=== PATIENT | male | born 1945 | race Caucasian/White ===

== ENCOUNTER 2018-10-18 18:40 | Inpatient (IN) | payer OTHER ==
[2018-10-18] MEDS ORDERED: ALBUTEROL SO4 2.5/IPRATROPIUM 0.5 INH SOL 3 ML VIAL.NEB. NEB ONE ×2 (18:53→19:06)
[2018-10-18] MEDS ORDERED: DEXAMETHASONE SOD PHOSPHATE 10 MG/1 ML VIAL ONE (18:53)
[2018-10-18] MEDS ORDERED: MAGNESIUM SULF 50% (8.12 MEQ/2 ML-1 GM VIAL) IVPB ONE (19:05)
[2018-10-18] MEDS ORDERED: MAGNESIUM 1GM/D5W - 2 GM/200 ML IVPB IVPB ONE (19:23)
--- NOTE | 2018-10-18 19:25 | PDOC ---
History of Present Illness - General Chief Complaint: Shortness of Breath Stated Complaint: DIFFICULTY BREATHING Time Seen by Provider: 10/18/18 18:54 - History of Present Illness Initial Comments: 10/18/18 20:28 72yo M hx COPD, HTN, abdominal hernia, and shingles c/o acute on chronic SOB and chest tightness. Pt c/o SOB, chest tightness, and nonproductive cough for over a year, worse today. It is constant, worse with exertion, better with rest , making him have difficulty even getting up and walking. He has been seen by multiple EDs and pulmonary specialists throughout [place] approximately once a week. Last visit to the ED was [facility] a week ago and he was given nebs and steroids then discharged from the ED. Pt states he was discharged without meds. Pt uses his albuterol inhaler daily but ran out of his Breo Ellipta inhaler. Pt states he just moved and left his nebulizer at his last home. No O2 at home. Pt states he was supposed to have a pulmonology test last week but didn 't go due to lack of money. Pt denies any hx of PNA or intubations. Denies F/C, N/V, D/C, CHRISTIAN, CP, abdominal pain, blood in stool or urine, dysuria, back pain, neck pain, dizziness, weakness, or numbness. Past History - Past Medical History Allergies/Adverse Reactions: Allergies Allergy/AdvReac Type Severity Reaction Status Date / Time No Known Allergies Allergy Verified 10/18/18 18:49 COPD: Yes - Surgical History Abdominal Surgery: Yes - Suicide/Smoking/Psychosocial Hx Smoking History: Former smoker Have you smoked in the past 12 months: No Information on smoking cessation initiated: No Hx Alcohol Use: No Drug/Substance Use Hx: No Review of Systems - Review of Systems Comments:: 10/18/18 19:34 Constitutional: Negative for chills, fever, fatigue. HENT: Negative for sore throat, rhinorrhea, congestion. Eyes: Negative for visual disturbance. Respiratory: Positive for shortness of breath, chest tightness, cough, and wheezing. Cardiovascular: Negative for chest pain, palpitations, and leg swelling. Gastrointestinal: Negative for abdominal pain, blood in stool, constipation, diarrhea, nausea, and vomiting. Genitourinary: Negative for dysuria, flank pain, and hematuria. Musculoskeletal: Negative for myalgias, back pain, and neck pain. Skin: Negative for rash. Neurological: Negative for light-headedness, dizziness, syncope, weakness, numbness and headaches. Psychiatric/Behavioral: Negative for behavioral problems and confusion. *Physical Exam - Vital Signs Last Vital Signs Temp Pulse Resp BP Pulse Ox 94 H 22 H 185/96 H 94 L 10/18/18 18:49 10/18/18 18:49 10/18/18 18:49 10/18/18 18:49 - Physical Exam Comments: 10/18/18 19:47 Gen: Alert, leaning forward, mild respiratory distress, speaking in 4-word sentences, anxious-appearing. HEENT: PERRL, EOMI, MMM, NCAT. No conjunctival pallor. Sclera are non-icteric. CV: Regular rate and rhythm. No murmurs, rubs, or gallops. PULM: Moderate respiratory distress, good air movement, b/l diffuse wheezing, no crackles. ABD: soft, NT/ND, no rebound tenderness or guarding, no CVA tenderness. BACK: No TTP of c/t/l-spine. No step-offs or deformities. MSK: No bony deformities. 2+ pulses in all extremities. NEURO: AAOx3. PERRL. No gross CN deficits. Strength and sensation grossly intact throughout. EXTREMITIES: No cyanosis. No clubbing. No edema. No calf tenderness. PSYCH: Normal mood and thought pattern. SKIN: Warm and dry. Normal capillary refill. No rashes. No jaundice. Heart Score/ECG Review - ECG Impressions Comment:: 10/18/18 20:45 NSR, 90bpm, no AMRITA/TWI ED Treatment Course - LABORATORY CBC & Chemistry Diagram: 10/18/18 19:20 10/18/18 19:20 Medical Decision Making - Medical Decision Making 10/18/18 19:31 72yo M hx COPD, HTN, abdominal hernia, and shingles presents with acute on chronic SOB, chest tightness, and nonproductive cough for >1yr, worse today. Multiple visits to EDs, using inhaler but ran out of Breo Ellipta and nebs. No hx of PNA or intubations. Mild respiratory distress with diffuse wheezing, BP/ HR stable, afebrile. SOB most likely COPD exacerbation due to wheezing and hx. Decadron and duonebs given by EMS. Continue decadron and albuterol and add Mg. Hold off on bipap for now. Get CXR and basic labs including VBG. Also consider and assess for PNA due to cough. Less likely ddx includes ACS/DE (low HEART score pre-EKG/trop; evaluate with EKG and trop x1), CHF (get BNP), PE (low Wells score-no further testing indicated at this time), PTX (b/l BS present, obtain CXR), and metabolic derangements (check labs). -Labs: CBC, CMP, VBG, Lact, Trop, BNP, Mg, BCx -EKG -CXR -Meds: Albuterol, Mg, Decadron -Dispo: most likely admit pending workup 10/18/18 20:04 Bipap placed. Pt still in mild respiratory distress with diffuse wheezing, speaking in 4-5 word sentences. VBG: pH 7.38, pCO2 49.4, pO2 29.5, HCO3 28.2, O2 sat 48.8, BE 2.6 10/18/18 20:27 No concerning findings on CBC. Lact 0.7. 10/18/18 20:41 No concerning findings on CMP, Trop, BNP (59.8), Mg (2.3). CXR: per my read, mild pulmonary congestion, no signs of PNA. 10/18/18 20:43 Pt feels like breathing less labored. Tolerating bipap. Still speaking in 4-5 word sentences and diffuse wheezing, but appears in less distress. 10/18/18 20:50 In-line albuterol nebs ordered. Microblog for admission. 10/18/18 21:25 Spoke with admitting. Admit to Dr. Abdalla. *DC/Admit/Observation/Transfer Diagnosis at time of Disposition: COPD exacerbation - Discharge Dispostion Condition at time of disposition: Fair Decision to Admit order: Yes - Referrals - Patient Instructions - Post Discharge Activity
[2018-10-18] MEDS: ALBUTEROL SO4 2.5/IPRATROPIUM 0.5 INH SOL 3 ML VIAL.NEB. NEB SCH (19:37)
--- NOTE | 2018-10-18 19:40 | PDOC ---
Documentation entered by Richa Mejia SCRIBE, acting as scribe for Leonarda Grey MD. Leonarda Grey MD: This documentation has been prepared by the Roberto bernard Collisia, SCRIBE, under my direction and personally reviewed by me in its entirety. I confirm that the documentation accurately reflects all work, treatment, procedures, and medical decision making performed by me. Attending Attestation - Resident Resident Name: Leny Peters - ED Attending Attestation I have performed the following: I have examined & evaluated the patient, The case was reviewed & discussed with the resident, I agree w/resident's findings & plan, Exceptions are as noted - HPI HPI: 10/18/18 19:21 The patient is a 72 year old male with a significant past medical history of poorly controlled COPD, glaucoma who presents to the emergency department via EMS with increased shortness of breath since last night. He states that he began to have some labored breathing while at home last night. The patient reports that he has been hospitalized for similar symptoms multiple times in the past including at [facility], [place], and [facility]. He reports associated recent productive cough for 1 week. The patient states that he usually takes albuterol PRN and daily Breo(200 mcg/25mcg) but states that he ran out of his Breo more that 1 week ago. The patient denies and fever, chills, nausea, vomiting, diarrhea, constipation or urinary symptoms. He denies any headache, focal weakness/numbness or dizziness. The patient denies any other symptoms or complaints. - Physicial Exam PE: 10/18/18 19:23 GENERAL: (+)speaking in 3-4 word sentences. Awake, alert, and fully oriented, in mild resp distress EYES: EOMI, sclera anicteric, conjunctiva clear ENT: Oropharynx clear without exudates. Moist mucosa NECK: Normal ROM, supple, no lymphadenopathy, JVD, or masses LUNGS: (+)diffuse wheezing with moderate air movement. Breath sounds equal. No crackles HEART: Regular rate and rhythm, normal S1 and S2, no murmurs, rubs or gallops ABDOMEN: Soft, nontender, normoactive bowel sounds. No guarding, no rebound. No masses EXTREMITIES: Normal range of motion, no edema. No clubbing or cyanosis. No cords, erythema, or tenderness NEUROLOGICAL: Normal speech, cranial nerves intact, equal strength and sensation b/l SKIN: Warm, Dry, normal turgor, no rashes or lesions noted. - Medical Decision Making 10/18/18 19:34 72yo M hx COPD presents to the ED with SOB Exam with diffuse wheezing, moderate air movement Pt s/p decadron in the field, duonebs Will continue duonebs, add magnesium Pt placed on bipap due to some WOB and mild distress 10/18/18 21:34 Pt much more comfortable on bipap CXR clear Blood gas with no acidosis or CO2 retention Labs otherwise including trop and BNP wnl Rpt vitals stable Case discussed with admitting hospitalist, pt accepted for admission under Dr. Lance Case discussed in detail with admitting physician including history, physical exam and ancillary studies. Admitting physician has assumed care for the patient, will follow all pending diagnostics and will complete the evaluation and treatment. Heart Score/ECG Review #1 10/18/18 19:33 Twelve-lead EKG was performed and reviewed by me. Normal sinus rhythm, rate 90. Normal axis and intervals. No ST elevations or T-wave inversions.
[2018-10-18 19:56] LABS: BASO % 1.1 % (0-2.0); EOS % 11.3 % (0-4.5); HEMATOCRIT 40.9 % (35.4-49); HEMOGLOBIN 13.4 GM/dL (11.7-16.9); LYMPH % 15.6 % (8-40); MCH 30.7 pg (25.7-33.7); MCHC 32.8 g/dl (32.0-35.9); MEAN CELL VOLUME 93.7 fl (80-96); MEAN PLT VOLUME 8.9 fl (7.5-11.1); MONO % 8.5 % (3.8-10.2); NEUT % 63.5 % (42.8-82.8); PLATELET COUNT 224 K/MM3 (134-434); RBC 4.37 M/mm3 (4.00-5.60); WHITE BLOOD COUNT 6.2 K/mm3 (4.0-10.0)
[2018-10-18 19:57] LABS: VENOUS PC02 49.4 mmHg (41-51); VENOUS PH 7.38 (7.31-7.41)
[2018-10-18 19:58] LABS: VENOUS PO2 29.5 mmHg (30-40)
[2018-10-18 20:30] LABS: ALBUMIN 3.5 g/dl (3.4-5.0); ALK PHOS 69 U/L (45-117); ANION GAP 5 MMOL/L (8-16); BILIRUBIN,TOTAL 0.5 mg/dL (0.2-1); CALCIUM 8.5 mg/dL (8.5-10.1); CHLORIDE 108 mmol/L (98-107); CO2 30 mmol/L (21-32); CREATININE 0.9 mg/dL (0.55-1.3); GLUCOSE,RANDOM 98 mg/dL (74-106); MAGNESIUM 2.3 mg/dL (1.8-2.4); N-TERMINAL BNP 59.8 pg/ml (5-125); POTASSIUM 3.9 mmol/L (3.5-5.1); SGOT/AST 25 U/L (15-37); SGPT/ALT 23 U/L (13-61); SODIUM 143 mmol/L (136-145); TOT PROT 6.2 g/dl (6.4-8.2)
[2018-10-18] MEDS ORDERED: ALBUTEROL SO4 0.083% IH SOL 2.5 MG/3 ML VIAL.NEB. NEB PRN ×2 (20:48→22:25)
[2018-10-18] MEDS ORDERED: ACETAMINOPHEN 325 MG TABLET (FP) PO PRN (22:25)
--- NOTE | 2018-10-18 22:49 | PN ---
Teaching Attending Note Name of Resident: Leslie Amos ATTENDING PHYSICIAN STATEMENT I saw and evaluated the patient. Chart, data, imaging reviewed. I reviewed the resident's note and discussed the case with the resident. I agree with the resident's findings and plan as documented. SUBJECTIVE: 72yo M hx COPD, HTN, abdominal hernia, biba, c/o shortness of breath and cough w / yellowish sputum production for last several days, seen at [facility] ER and discharged with doxycycline. Found to be hypoxemic in ER. On way to [facility] received systemic steroids, placed on Bipap with improvement in symptoms. Cannot fully speak in full sentences. Denied smoking cigarettes ever but admitted to second hand smoke exposure. OBJECTIVE: Last Vital Signs Temp Pulse Resp BP Pulse Ox 98.0 F 90 24 H 166/89 96 10/18/18 21:29 10/18/18 21:52 10/18/18 21:52 10/18/18 21:52 10/18/18 21:52 General- respiratory distress, cannot speak in full sentences Heent- at, nc, chest- diffuse expiraotory wheezing, coarse breath sounds appreciated abdomen- soft, nt, bs+, large vertical scar, reducible abd hernia ext- no pedal edema appreciated, no clubbing, or cyanosis Abnormal Lab Results 10/18/18 10/18/18 10/18/18 19:20 19:20 19:20 Eosinophils % 11.3 H POC VBG pO2 29.5 L VBG O2 Sat (Jeffy) 48.8 L VBG Base Excess 2.6 H Chloride 108 H Anion Gap 5 L Total Protein 6.2 L Imaging reviewed ekg suggestive of possible lvh cxr showed possible pulm vascular congestion ASSESSMENT AND PLAN: #72yo man with acute hypoxic resp failure secondary to what appears to be reactive airway disease- COPD? although never smoked. Never had PFTs. Normal BNP , do not suspect CHF or PE. -admit to med/surg -methylprednisone -duonebs q4hrs -azithromycin daily -pulmonary evaluation -maintain on bipap -ABG on room air if allows -transthoracic echo -respiratory watch -repeat troponin (1st was neg) #Severe htn -salt restriction -amlopdine, lisinopril #DVT ppx- heparin sc
[2018-10-18] MEDS ORDERED: AZITHROMYCIN IVPB 500 MG/250 ML BAG IVPB ONE (23:00)
[2018-10-18] MEDS: methylPREDNISolone NA SUCC 40 MG/1 ML VIAL IVPUSH SCH (23:27)
--- NOTE | 2018-10-18 23:28 | HP ---
CHIEF COMPLAINT: acute shortness of breath and chest tightness PCP: unknown HISTORY OF PRESENT ILLNESS: 72 yo M with PMH of COPD, HTN, glaucoma, abdominal hernia, shingles BIBEMS for acute shortness of breath and chest tightness. pt states this SOB is an ongoing issue for over a month with many recent hospital visits regarding this issue. Pt states these symptoms are worse on exertion. Pt also states he has been having a productive cough with yellow sputum. Pt states he still has productive cough but it has been improving this past week. Most recent hospital visit was 1 week ago ( [facility]) where he was discharged from the ED on doxycycline and breo ellipta. Today pt experienced worsening SOB. Decadron and duonebs given by EMS. pt BP in the ED 185/96. Pt denies smoking history but states he has been exposed to second hand smoke ER course was notable for: (1) pt given Decadron 10mg and duonebs (2) pt started on BiPAP Recent Travel: denies recent travel PAST MEDICAL HISTORY: HTN, abdominal hernia, shingles, glaucoma PAST SURGICAL HISTORY: Appendectomy - early Social History: Smoking:denies Alcohol:denies Drugs: denies Family History: Allergies No Known Allergies Allergy (Verified 10/18/18 18:49) HOME MEDICATIONS: Home Medications Medication Instructions Recorded Doxycycline Hyclate 100 mg PO BID 10/18/18 Fluticasone/Vilanterol [Breo 1 each IH PRN 10/18/18 Ellipta 200-25 Mcg INH] REVIEW OF SYSTEMS CONSTITUTIONAL: Absent: fever, chills, diaphoresis, generalized weakness, malaise, loss of appetite, weight change CARDIOVASCULAR: Present: chest discomfort Absent: syncope, palpitations, irregular heart rate, lightheadedness, peripheral edema RESPIRATORY: Present: cough, shortness of breath, dyspnea on exertion, wheezes Absent: orthopnea, stridor, hemoptysis GASTROINTESTINAL: Absent: abdominal pain, abdominal distension, nausea, vomiting, diarrhea, constipation, melena, hematochezia PHYSICAL EXAMINATION Vital Signs - 24 hr 10/18/18 10/18/18 10/18/18 18:49 19:20 20:03 Temperature Pulse Rate 94 H Pulse Rate [ Left Radial] Pulse Rate [ Right] Respiratory 22 H Rate Blood Pressure 185/96 H Blood Pressure [Left Arm] Blood Pressure [Right Arm] O2 Sat by Pulse 94 L 94 L 99 Oximetry (%) 10/18/18 10/18/18 21:29 21:52 Temperature 98.0 F Pulse Rate Pulse Rate [ 88 Left Radial] Pulse Rate [ 90 Right] Respiratory 24 H 24 H Rate Blood Pressure Blood Pressure 154/77 [Left Arm] Blood Pressure 166/89 [Right Arm] O2 Sat by Pulse 96 96 Oximetry (%) Laboratory Last Values WBC 6.2 K/mm3 (4.0-10.0) 10/18/18 19:20 RBC 4.37 M/mm3 (4.00-5.60) 10/18/18 19:20 Hgb 13.4 GM/dL (11.7-16.9) 10/18/18 19:20 Hct 40.9 % (35.4-49) 10/18/18 19:20 MCV 93.7 fl (80-96) 10/18/18 19:20 MCH 30.7 pg (25.7-33.7) 10/18/18 19:20 MCHC 32.8 g/dl (32.0-35.9) 10/18/18 19:20 RDW 14.0 % (11.9-15.9) 10/18/18 19:20 Plt Count 224 K/MM3 (134-434) 10/18/18 19:20 MPV 8.9 fl (7.5-11.1) 10/18/18 19:20 Absolute Neuts (auto) 3.9 K/mm3 (1.5-8.0) 10/18/18 19:20 Neutrophils % 63.5 % (42.8-82.8) 10/18/18 19:20 Lymphocytes % 15.6 % (8-40) 10/18/18 19:20 Monocytes % 8.5 % (3.8-10.2) 10/18/18 19:20 Eosinophils % 11.3 % (0-4.5) H 10/18/18 19:20 Basophils % 1.1 % (0-2.0) 10/18/18 19:20 Nucleated RBC % 0 % (0-0) 10/18/18 19:20 VBG pH 7.38 (7.31-7.41) 10/18/18 19:20 POC VBG pCO2 49.4 mmHg (41-51) 10/18/18 19:20 POC VBG pO2 29.5 mmHg (30-40) L 10/18/18 19:20 VBG HCO3 28.2 mmol/L (23-29) 10/18/18 19:20 VBG O2 Sat (Jeffy) 48.8 % (70-80) L 10/18/18 19:20 VBG Base Excess 2.6 meq/l (-2-2) H 10/18/18 19:20 Sodium 143 mmol/L (136-145) 10/18/18 19:20 Potassium 3.9 mmol/L (3.5-5.1) 10/18/18 19:20 Chloride 108 mmol/L (98-107) H 10/18/18 19:20 Carbon Dioxide 30 mmol/L (21-32) 10/18/18 19:20 Anion Gap 5 MMOL/L (8-16) L 10/18/18 19:20 BUN 17.0 mg/dL (7-18) 10/18/18 19:20 Creatinine 0.9 mg/dL (0.55-1.3) 10/18/18 19:20 Est GFR (CKD-EPI)AfAm 97.17 10/18/18 19:20 Est GFR (CKD-EPI)NonAf 83.84 10/18/18 19:20 Random Glucose 98 mg/dL (74-106) 10/18/18 19:20 Lactic Acid 0.7 mmol/L (0.4-2.0) 10/18/18 19:20 Calcium 8.5 mg/dL (8.5-10.1) 10/18/18 19:20 Magnesium 2.3 mg/dL (1.8-2.4) 10/18/18 19:20 Total Bilirubin 0.5 mg/dL (0.2-1) 10/18/18 19:20 AST 25 U/L (15-37) 10/18/18 19:20 ALT 23 U/L (13-61) 10/18/18 19:20 Alkaline Phosphatase 69 U/L (45-117) 10/18/18 19:20 Troponin I < 0.02 ng/ml (0.00-0.05) 10/18/18 19:20 B-Natriuretic Peptide 59.8 pg/ml (5-125) 10/18/18 19:20 Total Protein 6.2 g/dl (6.4-8.2) L 10/18/18 19:20 Albumin 3.5 g/dl (3.4-5.0) 10/18/18 19:20 GENERAL: Awake, alert, and fully oriented, in no acute distress. HEAD: Normal with no signs of trauma. EYES: extraocular movements intact, sclera anicteric LUNGS: Course breath sounds R> L . B/L wheezes. On BIPAP HEART: Regular rate and rhythm, normal S1 and S2 without murmur, rub or gallop. ABDOMEN: nontender, not distended, large abdominal hernia UPPER EXTREMITIES: 2+ pulses, warm, well-perfused. No cyanosis. No clubbing. No peripheral edema. LOWER EXTREMITIES: 2+ pulses, warm, well-perfused. No calf tenderness. No peripheral edema. NEUROLOGICAL: Cranial nerves II-XII intact. Normal speech. PSYCHIATRIC: Cooperative. Good eye contact. Appropriate mood and affect. SKIN: Warm, dry, normal turgor, no rashes or lesions noted, normal capillary refill. Active Medications Acetaminophen (Tylenol -) 650 mg PO Q4H PRN PRN Reason: PAIN OR FEVER Albuterol Sulfate (Ventolin 0.083% Nebulizer Soln -) 1 amp NEB Q4H PRN PRN Reason: SHORT OF BREATH/WHEEZING Albuterol/Ipratropium (Duoneb -) 1 amp NEB RQID NANCY Heparin Sodium (Porcine) (Heparin -) 5,000 unit SQ TID [facility] Azithromycin (Zithromax 500mg Ivpb (Pre-Docked)) 500 mg in 250 mls @ 250 mls/ hr IVPB ONCE ONE Stop: 10/18/18 23:59 Azithromycin 250 mg/ Dextrose 250 mls @ 250 mls/hr IVPB DAILY [facility] Methylprednisolone Sodium Succinate (Solu-Medrol -) 40 mg IVPUSH Q8H-IV NANCY Pantoprazole Sodium (Protonix -) 40 mg PO DAILY [facility] ASSESSMENT/PLAN: 72 yo M w/ PMH COPD, HTN, abdominal hernia, shingles, admitted with acute shortness of breath and chest tightness. Acute hypoxic respiratory failure -2/2 acute COPD exacerbation vs cardiac pathology -pt on BIPAP -awaiting ABG on room air -CXRAY: mild pulm vasc congestion -Azithromycin: 500 mg initial dose, 250 daily -methylprednisone 40 q8 -c/w DuoNebs q4 and albuterol prn -Dr. Mohr consulted -recommending outpt follow up with PFTs -pt afebrile with no leukocytosis , unlikely URI -ECHO to r/o cardiac pathology -BNP 59.8, EKG in NSR, possible LVH -PE unlikely, low Wells criteria HTN -pt BP 166/89 -Lisinopril 10mg -Amlodipine 10mg -low salt diet DVT ppx: Hep SQ 10/18/18 20:43 Visit type - Emergency Visit Emergency Visit: No - New Patient This patient is new to me today: No - Critical Care Critical Care patient: No
[2018-10-18 23:55] VITALS: BMI 24.1
[2018-10-19 00:29] LABS: ARTERIAL BLD GAS O2 SATURATION 90.4 % (95-98); ARTERIAL BLOOD GAS BASE EXCESS 2.4 meq/l (-2-2); ARTERIAL BLOOD GAS PCO2 39.3 mmHg (35-45); ARTERIAL BLOOD GAS PO2 58.7 mmHg (80-105); ARTERIAL BLOOD GAS pH 7.44 (7.35-7.45)
[2018-10-19 01:04] LABS: ALLENS TEST POSITIVE
[2018-10-19] MEDS: methylPREDNISolone NA SUCC 40 MG/1 ML VIAL IVPUSH SCH ×3 (01:47→18:02)
[2018-10-19] MEDS: HEPARIN NA (PORCINE) 5,000 UNITS/ML 1ML VIAL SQ SCH ×3 (05:59→21:22)
[2018-10-19 06:43] LABS: HEMATOCRIT 38.9 % (35.4-49); HEMOGLOBIN 13.1 GM/dL (11.7-16.9); MCH 31.2 pg (25.7-33.7); MCHC 33.7 g/dl (32.0-35.9); MEAN CELL VOLUME 92.6 fl (80-96); MEAN PLT VOLUME 8.8 fl (7.5-11.1); PLATELET COUNT 227 K/MM3 (134-434); RDW 13.8 % (11.9-15.9); WHITE BLOOD COUNT 6.5 K/mm3 (4.0-10.0)
[2018-10-19 07:09] LABS: BLOOD UREA NITROGEN 20.4 mg/dL (7-18); CALCIUM 8.3 mg/dL (8.5-10.1); MAGNESIUM 2.5 mg/dL (1.8-2.4); PHOSPHOROUS 2.6 mg/dL (2.5-4.9); POTASSIUM 4.3 mmol/L (3.5-5.1)
[2018-10-19] MEDS: ALBUTEROL SO4 2.5/IPRATROPIUM 0.5 INH SOL 3 ML VIAL.NEB. NEB SCH ×3 (08:47→21:34)
--- NOTE | 2018-10-19 09:39 | CON.PULM ---
Consult Consult Specialty:: PULMONARY Referred by:: ZAYDA Reason for Consultation:: ASTHMA - History of Present Illness Chief Complaint: SOB/COUGH/WHEEZE History of Present Illness: 72 RECENTLY HOMELESS NONSMOKER HTN/B. JEZ ON ADVAIR AND ALBUTEROL WAS IN A [facility] IN [place] UNTIL HE WAS GIVEN A [place] RUN APARTMENT. HE WAS SLEEPING ON THE FLOOR IN THE APARTMENT ( NO FURNITURE WAS PROVIDED) HE BEGAN TO DEVELOP COUGH/NASAL CONGESTION AND WHEEZE. HE HAD RUN OUT OF HIS ADVAIR AND ALBUTEROL. HE ALSO STATES HE DID NOT HAVE ANY FURTHER ANTI-HTN MEDS. hE DENIES ETOH/DRUG ABUSE OR PREVIOUS INCARCERATION. hE IS A POOR HISTORIAN. hE HAD AN APPENDECTOMY IN THE PAST WITH INCISIONAL HERNIA NOTED. - History Source History Provided By: Patient, Medical Record Limitations to Obtaining History: Poor Historian - Past Medical History [employer]: No: Alzheimer's Cardio/Vascular: Yes: HTN. No: AFIB Pulmonary: Yes: Asthma, COPD. No: Previously Intubated Gastrointestinal: No: Ascites Hepatobiliary: No: Cirrhosis Renal/: No: Renal Failure Heme/Onc: No: Anemia Psych: No: Addictions ENT: Yes: Sinusitis, Other (GLAUCOMA) Endocrine: No: Diabetes Mellitus - Past Surgical History Past Surgical History: Yes: Appendectomy - Alcohol/Substance Use Hx Alcohol Use: No - Smoking History Smoking history: Never smoked Have you smoked in the past 12 months: No Aproximately how many cigarettes per day: 0 - Social History Usual Living Arrangement: Other ([facility]) ADL: Support Services Place of : [facility] History of Recent Travel: No Home Medications - Allergies Allergies/Adverse Reactions: Allergies Allergy/AdvReac Type Severity Reaction Status Date / Time No Known Allergies Allergy Verified 10/18/18 18:49 - Home Medications Home Medications: Ambulatory Orders Doxycycline Hyclate 100 mg PO BID 10/18/18 Fluticasone/Vilanterol [Breo Ellipta 200-25 Mcg INH] 1 each IH PRN 10/18/18 Latanoprost 0.005% Eye Drops [Xalatan 0.005% Eye Drops -] 1 drop OU BID Timolol Maleate 1 drop OU BID 10/18/18 Breo Ellipta 100-25 Mcg INH 1 puff DAILY 10/19/18 Proair Hfa 1 puff PRN 10/19/18 Family Disease History - Family Disease History Family History: Unremarkable Review of Systems - Review of Systems Constitutional: denies: Fever Eyes: reports: Blurred Vision HENT: denies: Difficult Swallowing Neck: denies: Decreased ROM Cardiovascular: denies: Chest Pain Respiratory: reports: Cough, SOB on Exertion, Wheezing. denies: Hemoptysis, Orthopnea Gastrointestinal: denies: Abdominal Pain Genitourinary: denies: Burning Physical Exam Vital Sings: Vital Signs Temperature 97.8 F 10/19/18 06:00 Pulse Rate 82 10/19/18 06:00 Respiratory Rate 20 10/19/18 06:00 Blood Pressure 135/82 10/19/18 06:00 O2 Sat by Pulse Oximetry (%) 95 10/19/18 08:46 Constitutional: Yes: Calm Eyes: Yes: EOM Intact HENT: Yes: Normocephalic Neck: Yes: Trachea Midline Cardiovascular: Yes: Regular Rate and Rhythm Respiratory: Yes: Rhonchi (MILD SCATTERED) Gastrointestinal: Yes: Other (INCISIONAL HERNIA ) Renal/: Yes: WNL Breast(s): Yes: WNL Musculoskeletal: Yes: WNL Extremities: Yes: WNL Edema: No Neurological: Yes: Alert Psychiatric: Yes: Alert Labs: CBC, BMP 10/19/18 06:05 10/19/18 06:05 ABG Results ABG pH 7.44 (7.35-7.45) 10/19/18 00:10 ABG pCO2 at Pt Temp 39.3 mmHg (35-45) 10/19/18 00:10 ABG pO2 at Pt Temp 58.7 mmHg (80-105) L 10/19/18 00:10 ABG HCO3 26.1 mmol/L (22-27) 10/19/18 00:10 ABG O2 Sat (Measured) 90.4 % (95-98) L 10/19/18 00:10 ABG O2 Content 16.7 % vol (15-22) 10/19/18 00:10 ABG Base Excess 2.4 meq/l (-2-2) H 10/19/18 00:10 REST REVIEWED Imaging - Results Chest X-ray: Report Reviewed, Image Reviewed EKG: Report Reviewed Problem List - Problems (1) COPD exacerbation Code(s): J44.1 - CHRONIC OBSTRUCTIVE PULMONARY DISEASE W (ACUTE) EXACERBATION (2) HTN (hypertension) Code(s): I10 - ESSENTIAL (PRIMARY) HYPERTENSION (3) Glaucoma Code(s): H40.9 - UNSPECIFIED GLAUCOMA (4) Homeless Code(s): Z59.0 - HOMELESSNESS (5) Incisional hernia Code(s): K43.2 - INCISIONAL HERNIA WITHOUT OBSTRUCTION OR GANGRENE Assessment/Plan PREVIOUSLY HOMELESS MALE NONSMOKER WITH H/O COPD/B. ASTHMA PRESENTS WITH A/E COPD REQUIRING NIPPV PATIENT RAN OUT OF MEDS/ ADVAIR, ALBUTEROL AND STATES HE DEVELOPED A PRODUCTIVE COUGH WHICH WORSENED OVER PAST TWO WEEKS. H/O HTN S/P APPENDECTOMY WITH INCISIONAL REDUCIBLE HERNIAS O2 SUPPLEMENTATION REQUIRED TO KEEP O2 SAT GREATER THAN 90% NEED TO CHEECK SPO2 PRE/POST AMB ON R/A TO DETERMINE NEED FOR HOME O2 [facility]/LABA/ICS/LAMA WOULD TAPER SYSTEMIC STEROIDS ANTIBIOTICS PER PRIMARY TEAM PPD/DVT PROPHYLAXSIS WILL FOLLOW Didier BLANDON MD
[2018-10-19] MEDS: LISINOPRIL 10 MG TABLET (FP) PO SCH (09:56)
[2018-10-19] MEDS: PANTOPRAZOLE 40 MG TABLET (FP) PO SCH (09:56)
[2018-10-19] MEDS: amLODIPine BESYLATE 10 MG TABLET (FP) PO SCH (09:56)
[2018-10-19] MEDS ORDERED: amLODIPine BESYLATE 10 MG TABLET (FP) PO SCH (10:00)
[2018-10-19] MEDS ORDERED: LISINOPRIL 10 MG TABLET (FP) PO SCH (10:00)
[2018-10-19] MEDS: AZITHROMYCIN IVPB 250 MG in DEXTROSE 5%-WATER - 250 ML IVPB SCH (10:07)
--- NOTE | 2018-10-19 11:55 | PN ---
Teaching Attending Note ATTENDING PHYSICIAN STATEMENT I saw and evaluated the patient. I reviewed the resident's note and discussed the case with the resident. I agree with the resident's findings and plan as documented. SUBJECTIVE: OBJECTIVE: ASSESSMENT AND PLAN:
--- NOTE | 2018-10-19 12:12 | PN ---
Progress Note (short form) - Note Progress Note: SUBJECTIVE: Dyspnea/cough improving. No fever/chills. OBJECTIVE: Afebrile, Hemodynamically Stable. Last Vital Signs Temp Pulse Resp BP Pulse Ox 98.4 F 89 20 137/60 95 10/19/18 09:55 10/19/18 09:55 10/19/18 09:55 10/19/18 09:55 10/19/18 08:46 HEENT - Atraumatic, Normocephalic. Heart - S1, S2, RRR Lungs - occassional wheeze. Abdomen - Soft, non-tender. Laparotomy scar. Reducible hernia. Bowel Sounds normal. Extremities - no edema, no calf tenderness. Laboratory Results - last 24 hr 10/18/18 10/18/18 10/18/18 19:20 19:20 19:20 WBC 6.2 RBC 4.37 Hgb 13.4 Hct 40.9 MCV 93.7 MCH 30.7 MCHC 32.8 RDW 14.0 Plt Count 224 MPV 8.9 Absolute Neuts (auto) 3.9 Neutrophils % 63.5 Lymphocytes % 15.6 Monocytes % 8.5 Eosinophils % 11.3 H Basophils % 1.1 Nucleated RBC % 0 Anticoagulation Therapy Puncture Site ABG pH ABG pCO2 at Pt Temp ABG pO2 at Pt Temp ABG HCO3 ABG O2 Sat (Measured) ABG O2 Content ABG Base Excess Hector Test VBG pH 7.38 POC VBG pCO2 49.4 POC VBG pO2 29.5 L VBG HCO3 28.2 VBG O2 Sat (Jeffy) 48.8 L VBG Base Excess 2.6 H O2 Delivery Device Oxygen Flow Rate Vent Mode Vent Rate Mechanical Rate Pressure Support Vent Sodium 143 Potassium 3.9 Chloride 108 H Carbon Dioxide 30 Anion Gap 5 L BUN 17.0 Creatinine 0.9 Est GFR (CKD-EPI)AfAm 97.17 Est GFR (CKD-EPI)NonAf 83.84 Random Glucose 98 Lactic Acid Calcium 8.5 Phosphorus Magnesium 2.3 Total Bilirubin 0.5 AST 25 ALT 23 Alkaline Phosphatase 69 Troponin I < 0.02 B-Natriuretic Peptide 59.8 Total Protein 6.2 L Albumin 3.5 10/18/18 10/19/18 10/19/18 19:20 00:10 06:05 WBC 6.5 RBC 4.20 Hgb 13.1 Hct 38.9 MCV 92.6 MCH 31.2 MCHC 33.7 RDW 13.8 Plt Count 227 MPV 8.8 Absolute Neuts (auto) Neutrophils % Lymphocytes % Monocytes % Eosinophils % Basophils % Nucleated RBC % Anticoagulation Therapy No Result Required. Puncture Site Right radial ABG pH 7.44 ABG pCO2 at Pt Temp 39.3 ABG pO2 at Pt Temp 58.7 L ABG HCO3 26.1 ABG O2 Sat (Measured) 90.4 L ABG O2 Content 16.7 ABG Base Excess 2.4 H Hector Test Positive VBG pH POC VBG pCO2 POC VBG pO2 VBG HCO3 VBG O2 Sat (Jeffy) VBG Base Excess O2 Delivery Device Nasal cannula Oxygen Flow Rate 3l Vent Mode No Result Required. Vent Rate No Result Required. Mechanical Rate No Result Required. Pressure Support Vent No Result Required. Sodium Potassium Chloride Carbon Dioxide Anion Gap BUN Creatinine Est GFR (CKD-EPI)AfAm Est GFR (CKD-EPI)NonAf Random Glucose Lactic Acid 0.7 Calcium Phosphorus Magnesium Total Bilirubin AST ALT Alkaline Phosphatase Troponin I B-Natriuretic Peptide Total Protein Albumin 10/19/18 06:05 WBC RBC Hgb Hct MCV MCH MCHC RDW Plt Count MPV Absolute Neuts (auto) Neutrophils % Lymphocytes % Monocytes % Eosinophils % Basophils % Nucleated RBC % Anticoagulation Therapy Puncture Site ABG pH ABG pCO2 at Pt Temp ABG pO2 at Pt Temp ABG HCO3 ABG O2 Sat (Measured) ABG O2 Content ABG Base Excess Hector Test VBG pH POC VBG pCO2 POC VBG pO2 VBG HCO3 VBG O2 Sat (Jeffy) VBG Base Excess O2 Delivery Device Oxygen Flow Rate Vent Mode Vent Rate Mechanical Rate Pressure Support Vent Sodium 139 Potassium 4.3 Chloride 107 Carbon Dioxide 26 Anion Gap 6 L BUN 20.4 H Creatinine 1.0 Est GFR (CKD-EPI)AfAm 85.55 Est GFR (CKD-EPI)NonAf 73.82 Random Glucose 124 H Lactic Acid Calcium 8.3 L Phosphorus 2.6 Magnesium 2.5 H Total Bilirubin AST ALT Alkaline Phosphatase Troponin I B-Natriuretic Peptide Total Protein Albumin Current Medications Generic Name Dose Route Start Last Admin Trade Name Freq PRN Reason Stop Dose Admin Acetaminophen 650 mg 10/18/18 22:25 Tylenol - PO Q4H PRN PAIN OR FEVER Albuterol Sulfate 1 amp 10/18/18 22:25 Ventolin 0.083% Nebulizer Soln - NEB Q4H PRN SHORT OF BREATH/WHEEZING Albuterol/Ipratropium 1 amp 10/19/18 08:00 10/19/18 08:47 Duoneb - NEB 1 amp RQID NANCY Administration Amlodipine Besylate 10 mg 10/18/18 23:35 10/19/18 09:56 Norvasc - PO 10 mg DAILY NANCY Administration Heparin Sodium (Porcine) 5,000 unit 10/19/18 06:00 10/19/18 05:59 Heparin - SQ 5,000 unit TID NANCY Administration Azithromycin 250 mg/ Dextrose 250 mls @ 250 mls/hr 10/19/18 10:00 10/19/18 10 :07 IVPB 250 mls/hr DAILY NANCY Administration Lisinopril 10 mg 10/18/18 23:34 10/19/18 09:56 Prinivil PO 10 mg DAILY NNACY Administration Methylprednisolone Sodium Succinate 40 mg 10/18/18 22:45 10/19/18 01:47 Solu-Medrol - IVPUSH Not Given Q8H-IV NANCY Pantoprazole Sodium 40 mg 10/19/18 10:00 10/19/18 09:56 Protonix - PO 40 mg DAILY NANCY Administration Home Medications Medication Instructions Recorded Doxycycline Hyclate 100 mg PO BID 10/18/18 Fluticasone/Vilanterol [Breo 1 each IH PRN 10/18/18 Ellipta 200-25 Mcg INH] Latanoprost 0.005% Eye Drops 1 drop OU BID 10/18/18 [Xalatan 0.005% Eye Drops -] Timolol Maleate 1 drop OU BID 10/18/18 Breo Ellipta 100-25 Mcg INH 1 puff DAILY 10/19/18 Proair Hfa 1 puff PRN 10/19/18 ASSESSMENT/PLAN: 72 year old male with history of COPD, HTN, s/p appendectomy with reducible incisional abdominal hernia, presents with SOB/productive cough, found to be hypoxic in ED, requiring BiPAP. 1. Acute Hypoxic Respiratory Failure secondary to Acute Exacerbation COPD Transitioned from BiPAP to O2. CXR - no acute infiltrate. Continue Bronchodilator Nebs, Solumedrol, Azithromycin Normally on Breo-Ellipta, ProAir. 2. HTN - Continue Lisinopril, Norvasc. DVT Px - Heparin SQ. Visit type - Emergency Visit Emergency Visit: Yes ED Registration Date: 10/18/18 Care time: The patient presented to the Emergency Department on the above date and was hospitalized for further evaluation of their emergent condition. - New Patient This patient is new to me today: Yes Date on this admission: 10/19/18 - Critical Care Critical Care patient: No - Discharge Referral Referred to [facility] Med P.C.: No
--- NOTE | 2018-10-19 13:04 | EKG ---
Test Reason : Blood Pressure : / mmHG Vent. Rate : 090 BPM Atrial Rate : 090 BPM P-R Int : 152 ms QRS Dur : 078 ms QT Int : 360 ms P-R-T Axes : 086 060 058 degrees QTc Int : 440 ms NORMAL SINUS RHYTHM NORMAL ECG NO PREVIOUS ECGS AVAILABLE Confirmed by MD BUFFY, CHAPITO ([id number]) on 10/19/2018 1:04:37 PM Referred By: Confirmed By:CHAPITO BAER MD
[2018-10-20] MEDS: methylPREDNISolone NA SUCC 40 MG/1 ML VIAL IVPUSH SCH ×3 (01:42→20:27)
[2018-10-20] MEDS: HEPARIN NA (PORCINE) 5,000 UNITS/ML 1ML VIAL SQ SCH ×3 (05:43→21:04)
[2018-10-20] MEDS: ALBUTEROL SO4 2.5/IPRATROPIUM 0.5 INH SOL 3 ML VIAL.NEB. NEB SCH ×4 (07:45→19:34)
[2018-10-20] MEDS ORDERED: PT OWN MED DRAWER 7, Y5N ONE ×2 (09:24→17:24)
[2018-10-20] MEDS: amLODIPine BESYLATE 10 MG TABLET (FP) PO SCH (09:46)
[2018-10-20] MEDS: PANTOPRAZOLE 40 MG TABLET (FP) PO SCH (09:46)
[2018-10-20] MEDS: LISINOPRIL 10 MG TABLET (FP) PO SCH (09:47)
[2018-10-20] MEDS: AZITHROMYCIN IVPB 250 MG in DEXTROSE 5%-WATER - 250 ML IVPB SCH (09:47)
--- NOTE | 2018-10-20 11:40 | PN ---
Progress Note (short form) - Note Progress Note: Feels better. Did not need IPPV overnight. Cough and SOB improving. Intake & Output 10/17/18 10/18/18 10/19/18 10/20/18 23:59 23:59 23:59 23:59 Intake Total 400 1700 780 Output Total 200 800 300 Balance 200 900 480 Weight 140 lb 12.8 oz Last Vital Signs Temp Pulse Resp BP Pulse Ox 98.1 F 94 H 21 H 133/76 94 L 10/19/18 22:00 10/20/18 09:59 10/20/18 09:59 10/20/18 09:59 10/19/18 21:00 Active Medications Acetaminophen (Tylenol -) 650 mg PO Q4H PRN PRN Reason: PAIN OR FEVER Albuterol Sulfate (Ventolin 0.083% Nebulizer Soln -) 1 amp NEB Q4H PRN PRN Reason: SHORT OF BREATH/WHEEZING Albuterol/Ipratropium (Duoneb -) 1 amp NEB RQID [facility] Last Admin: 10/20/18 07:45 Dose: 1 amp Amlodipine Besylate (Norvasc -) 10 mg PO DAILY [facility] Last Admin: 10/20/18 09:46 Dose: 10 mg Heparin Sodium (Porcine) (Heparin -) 5,000 unit SQ TID [facility] Last Admin: 10/20/18 05:43 Dose: 5,000 unit Azithromycin 250 mg/ Dextrose 250 mls @ 250 mls/hr IVPB DAILY [facility] Last Admin: 10/20/18 09:47 Dose: 250 mls/hr Lisinopril (Prinivil) 10 mg PO DAILY [facility] Last Admin: 10/20/18 09:47 Dose: 10 mg Methylprednisolone Sodium Succinate (Solu-Medrol -) 40 mg IVPUSH Q8H-IV [facility] Last Admin: 10/20/18 09:47 Dose: 40 mg Pantoprazole Sodium (Protonix -) 40 mg PO DAILY [facility] Last Admin: 10/20/18 09:46 Dose: 40 mg Constitutional: Yes: NAD Eyes: Yes: EOM Intact HENT: Yes: Normocephalic Neck: Yes: Trachea Midline Cardiovascular: Yes: Regular Rate and Rhythm Respiratory: Yes: Few scattered rhonchi Gastrointestinal: Yes: Other (INCISIONAL HERNIA ) Renal/: Yes: WNL Breast(s): Yes: WNL Musculoskeletal: Yes: WNL Extremities: Yes: WNL Edema: No Neurological: Yes: Alert Psychiatric: Yes: Alert Labs: Problem List - Problems (1) COPD exacerbation Code(s): J44.1 - CHRONIC OBSTRUCTIVE PULMONARY DISEASE W (ACUTE) EXACERBATION (2) HTN (hypertension) Code(s): I10 - ESSENTIAL (PRIMARY) HYPERTENSION (3) Glaucoma Code(s): H40.9 - UNSPECIFIED GLAUCOMA (4) Homeless Code(s): Z59.0 - HOMELESSNESS (5) Incisional hernia Code(s): K43.2 - INCISIONAL HERNIA WITHOUT OBSTRUCTION OR GANGRENE Assessment/Plan H/O HTN S/P APPENDECTOMY WITH INCISIONAL REDUCIBLE HERNIAS O2 SUPPLEMENTATION NEEDED NEED TO CHECK SPO2 PRE/POST AMBULATION ON R/A TO DETERMINE NEED FOR HOME O2 [facility]/LABA/ICS/LAMA CAN LIKELY CHANGE TO PREDNISONE IN THE NEXT 24 HOURS NO SMOKING PATIENT HAS A FOLLOW UP APPOINTMENT AT [facility] PPD/DVT PROPHYLAXSIS DR MCCARTHY
--- NOTE | 2018-10-20 12:10 | ECHO ---
Name: SALEEM NINO Exam:Adult Echocardiogram Study Date: 10/20/2018 08:10 AM Age: 72 yrs Reason For Study: LVH Height: 64 in Weight: 145 lb BSA: 1.7 m2 MMode/2D Measurements & Calculations IVSd: 0.78 cm Ao root diam: 3.1 cm LVIDd: 3.9 cm LA dimension: 2.9 cm LVIDs: 2.6 cm LVPWd: 1.1 cm EDV(Teich): 66.4 ml LVOT diam: 2.0 cm ESV(Teich): 24.1 ml LAV (MOD-bp): 28.9 ml Doppler Measurements & Calculations MV E max preet: 82.6 cm/sec Ao V2 max: 191.4 cm/sec MV A max preet: 101.0 cm/sec Ao max P.7 mmHg MV E/A: 0.82 MV dec time: 0.18 sec RICHARD(V,D): 2.8 cm2 LV V1 max P.2 mmHg MR max preet: 316.3 cm/sec LV V1 max: 174.4 cm/sec MR max P.0 mmHg TR max rpeet: 257.9 cm/sec PA V2 max: 126.2 cm/sec TR max P.6 mmHg PA max P.4 mmHg Med Peak E' Preet: 7.3 cm/sec PI Vmax: 115.4 cm/sec Med E/e': 11.3 Lat Peak E' Preet: 9.6 cm/sec Lat E/e': 8.6 Procedure The study was technically adequate with some images being suboptimal in quality. Left Ventricle The left ventricular size, thickness and function are normal. Ejection Fraction = 65-70%. Grade I mona stolic dysfunction, (abnormal relaxation pattern). Right Ventricle The right ventricle is normal in size and function. Atria Normal left and right atrial size and function. IVC 1.7 cm. Mitral Valve The mitral valve is grossly normal. There is trace mitral regurgitation. Tricuspid Valve The tricuspid valve is not well visualized, but is grossly normal. There is trace tricuspid regurgita tion. There was insufficient TR detected to calculate RV systolic pressure. Aortic Valve There is mild aortic sclerosis.;. The aortic valve opens well. The aortic valve is trileaflet. No aor tic regurgitation is present. Pulmonic Valve The pulmonic valve is not well visualized. Great Vessels The aortic root is normal size. Pericardium/Pleura There is no pericardial effusion. Interpretation Summary There is no comparison study available. The left ventricular size, thickness and function are normal The right ventricle is normal in size and function. There is trace mitral regurgitation. Ejection Fraction = 65-70%. There is trace tricuspid regurgitation. Grade I diastolic dysfunction, (abnormal relaxation pattern). Joseluis Atkinson MD 10/20/2018 12:10 PM
--- NOTE | 2018-10-20 14:19 | PN ---
Teaching Attending Note Name of Resident: Leslie Amos ATTENDING PHYSICIAN STATEMENT I saw and evaluated the patient. I reviewed the resident's note and discussed the case with the resident. I agree with the resident's findings and plan as documented. SUBJECTIVE: Dyspnea/cough generally improving although had an episode of shortness of breath this AM with associated palpitations, now resolved. No fever /chills. No chest pain. OBJECTIVE: Afebrile, Hemodynamically Stable. Last Vital Signs Temp Pulse Resp BP Pulse Ox 98.1 F 94 H 21 H 133/76 94 L 10/19/18 22:00 10/20/18 09:59 10/20/18 09:59 10/20/18 09:59 10/19/18 21:00 Heart - S1, S2, RRR Lungs - clear to auscultation Abdomen - Soft, non-tender. Laparotomy scars. Reducible hernia. Bowel Sounds normal. Extremities - no edema, no calf tenderness. Current Medications Generic Name Dose Route Start Last Admin Trade Name Freq PRN Reason Stop Dose Admin Acetaminophen 650 mg 10/18/18 22:25 Tylenol - PO Q4H PRN PAIN OR FEVER Albuterol Sulfate 1 amp 10/18/18 22:25 Ventolin 0.083% Nebulizer Soln - NEB Q4H PRN SHORT OF BREATH/WHEEZING Albuterol/Ipratropium 1 amp 10/19/18 08:00 10/20/18 07:45 Duoneb - NEB 1 amp RQID NANCY Administration Amlodipine Besylate 10 mg 10/18/18 23:35 10/20/18 09:46 Norvasc - PO 10 mg DAILY NANCY Administration Heparin Sodium (Porcine) 5,000 unit 10/19/18 06:00 10/20/18 05:43 Heparin - SQ 5,000 unit TID NANCY Administration Azithromycin 250 mg/ Dextrose 250 mls @ 250 mls/hr 10/19/18 10:00 10/20/18 09 :47 IVPB 250 mls/hr DAILY NANCY Administration Lisinopril 10 mg 10/18/18 23:34 10/20/18 09:47 Prinivil PO 10 mg DAILY NANCY Administration Methylprednisolone Sodium Succinate 40 mg 10/18/18 22:45 10/20/18 09:47 Solu-Medrol - IVPUSH 40 mg Q8H-IV NANCY Administration Pantoprazole Sodium 40 mg 10/19/18 10:00 10/20/18 09:46 Protonix - PO 40 mg DAILY NANCY Administration ASSESSMENT/PLAN: 72 year old male with history of COPD, HTN, s/p appendectomy with reducible incisional abdominal hernia, presents with SOB/productive cough, found to be hypoxic in ED, requiring BiPAP. 1. Acute Hypoxic Respiratory Failure secondary to Acute Exacerbation COPD - Hypoxia resolved, no need for further BiPAP, SpO2 94% on RA CXR - no acute infiltrate. Continue Bronchodilator Nebs, Solumedrol, Azithromycin - for transition to oral Prednisone today and likely discharge tomorrow. Normally on Breo-Ellipta, ProAir. For discharge with Nebulizer machine for PRN use. 2. HTN - Continue Lisinopril, Norvasc. 3. Episode of Palpitations this AM with SOB, resolved. Patient admits to being anxious and having panic attacks. No CP. Echo - normal EF, grade 1 Diastolic Dysfunction. No evidence of decompensation. Will monitor overnight on telemetry. If no telemonitoring events, can be considered for discharge tomorrow. DVT Px - Heparin SQ. GI PX - Protonix.
--- NOTE | 2018-10-20 16:26 | PN ---
Physical Exam: SUBJECTIVE: Patient seen and examined at bedside. Pt just woke up from sleep and was feeling short of breath with palpitations. when examined, he was saturating well on NC. Pt had a productive cough. OBJECTIVE: Vital Signs Period Temp Pulse Resp BP Sys/Ferreira Pulse Ox Last 24 Hr 97.6 F-98.2 F 78-94 20-21 106-135/50-91 94-98 GENERAL: The patient is awake, alert, and fully oriented, in no acute distress. HEAD: Normal with no signs of trauma. LUNGS: Breath sounds equal, wheezes R>L , no crackles, no accessory muscle use. HEART: Regular rate and rhythm, S1, S2 without murmur, rub or gallop. ABDOMEN: Soft, nontender, nondistended, normoactive bowel sounds EXTREMITIES: 2+ pulses, warm, well-perfused, no edema. PSYCH: Normal mood, normal affect. SKIN: Warm, dry, normal turgor, no rashes or lesions noted Laboratory Last Values WBC 6.5 K/mm3 (4.0-10.0) 10/19/18 06:05 RBC 4.20 M/mm3 (4.00-5.60) 10/19/18 06:05 Hgb 13.1 GM/dL (11.7-16.9) 10/19/18 06:05 Hct 38.9 % (35.4-49) 10/19/18 06:05 MCV 92.6 fl (80-96) 10/19/18 06:05 MCH 31.2 pg (25.7-33.7) 10/19/18 06:05 MCHC 33.7 g/dl (32.0-35.9) 10/19/18 06:05 RDW 13.8 % (11.9-15.9) 10/19/18 06:05 Plt Count 227 K/MM3 (134-434) 10/19/18 06:05 MPV 8.8 fl (7.5-11.1) 10/19/18 06:05 Absolute Neuts (auto) 3.9 K/mm3 (1.5-8.0) 10/18/18 19:20 Neutrophils % 63.5 % (42.8-82.8) 10/18/18 19:20 Lymphocytes % 15.6 % (8-40) 10/18/18 19:20 Monocytes % 8.5 % (3.8-10.2) 10/18/18 19:20 Eosinophils % 11.3 % (0-4.5) H 10/18/18 19:20 Basophils % 1.1 % (0-2.0) 10/18/18 19:20 Nucleated RBC % 0 % (0-0) 10/18/18 19:20 Anticoagulation Therapy No Result Required. 10/19/18 00:10 Puncture Site Right radial 10/19/18 00:10 ABG pH 7.44 (7.35-7.45) 10/19/18 00:10 ABG pCO2 at Pt Temp 39.3 mmHg (35-45) 10/19/18 00:10 ABG pO2 at Pt Temp 58.7 mmHg (80-105) L 10/19/18 00:10 ABG HCO3 26.1 mmol/L (22-27) 10/19/18 00:10 ABG O2 Sat (Measured) 90.4 % (95-98) L 10/19/18 00:10 ABG O2 Content 16.7 % vol (15-22) 10/19/18 00:10 ABG Base Excess 2.4 meq/l (-2-2) H 10/19/18 00:10 Hector Test Positive 10/19/18 00:10 VBG pH 7.38 (7.31-7.41) 10/18/18 19:20 POC VBG pCO2 49.4 mmHg (41-51) 10/18/18 19:20 POC VBG pO2 29.5 mmHg (30-40) L 10/18/18 19:20 VBG HCO3 28.2 mmol/L (23-29) 10/18/18 19:20 VBG O2 Sat (Jeffy) 48.8 % (70-80) L 10/18/18 19:20 VBG Base Excess 2.6 meq/l (-2-2) H 10/18/18 19:20 O2 Delivery Device Nasal cannula 10/19/18 00:10 Oxygen Flow Rate 3l 10/19/18 00:10 Vent Mode No Result Required. 10/19/18 00:10 Vent Rate No Result Required. 10/19/18 00:10 Mechanical Rate No Result Required. 10/19/18 00:10 Pressure Support Vent No Result Required. 10/19/18 00:10 Sodium 139 mmol/L (136-145) 10/19/18 06:05 Potassium 4.3 mmol/L (3.5-5.1) 10/19/18 06:05 Chloride 107 mmol/L (98-107) 10/19/18 06:05 Carbon Dioxide 26 mmol/L (21-32) 10/19/18 06:05 Anion Gap 6 MMOL/L (8-16) L 10/19/18 06:05 BUN 20.4 mg/dL (7-18) H 10/19/18 06:05 Creatinine 1.0 mg/dL (0.55-1.3) 10/19/18 06:05 Est GFR (CKD-EPI)AfAm 85.55 10/19/18 06:05 Est GFR (CKD-EPI)NonAf 73.82 10/19/18 06:05 Random Glucose 124 mg/dL (74-106) H 10/19/18 06:05 Lactic Acid 0.7 mmol/L (0.4-2.0) 10/18/18 19:20 Calcium 8.3 mg/dL (8.5-10.1) L 10/19/18 06:05 Phosphorus 2.6 mg/dL (2.5-4.9) 10/19/18 06:05 Magnesium 2.5 mg/dL (1.8-2.4) H 10/19/18 06:05 Total Bilirubin 0.5 mg/dL (0.2-1) 10/18/18 19:20 AST 25 U/L (15-37) 10/18/18 19:20 ALT 23 U/L (13-61) 10/18/18 19:20 Alkaline Phosphatase 69 U/L (45-117) 10/18/18 19:20 Troponin I < 0.02 ng/ml (0.00-0.05) 10/18/18 19:20 B-Natriuretic Peptide 59.8 pg/ml (5-125) 10/18/18 19:20 Total Protein 6.2 g/dl (6.4-8.2) L 10/18/18 19:20 Albumin 3.5 g/dl (3.4-5.0) 10/18/18 19:20 Active Medications Acetaminophen (Tylenol -) 650 mg PO Q4H PRN PRN Reason: PAIN OR FEVER Albuterol Sulfate (Ventolin 0.083% Nebulizer Soln -) 1 amp NEB Q4H PRN PRN Reason: SHORT OF BREATH/WHEEZING Albuterol/Ipratropium (Duoneb -) 1 amp NEB RQID [facility] Last Admin: 10/20/18 11:25 Dose: 1 amp Amlodipine Besylate (Norvasc -) 10 mg PO DAILY [facility] Last Admin: 10/20/18 09:46 Dose: 10 mg Heparin Sodium (Porcine) (Heparin -) 5,000 unit SQ TID [facility] Last Admin: 10/20/18 05:43 Dose: 5,000 unit Azithromycin 250 mg/ Dextrose 250 mls @ 250 mls/hr IVPB DAILY [facility] Last Admin: 10/20/18 09:47 Dose: 250 mls/hr Lisinopril (Prinivil) 10 mg PO DAILY [facility] Last Admin: 10/20/18 09:47 Dose: 10 mg Methylprednisolone Sodium Succinate (Solu-Medrol -) 40 mg IVPUSH Q8H-IV [facility] Stop: 10/20/18 19:30 Last Admin: 10/20/18 09:47 Dose: 40 mg Pantoprazole Sodium (Protonix -) 40 mg PO DAILY [facility] Last Admin: 10/20/18 09:46 Dose: 40 mg Prednisone (Deltasone -) 60 mg PO ONCE ONE Stop: 10/20/18 20:01 Prednisone (Deltasone -) 40 mg PO DAILY [facility] ASSESSMENT/PLAN: 72 yo M with PMH of COPD, HTN, glaucoma, abdominal hernia, shingles BIBEMS for acute shortness of breath and chest tightness. In ED pt was found hypoxemic and started on BIPAP. In ED pt found to have BP 185/96. Acute hypoxic respiratory failure -BIPAP no longer needed, pt saturating well on RA -CXRAY: no acute pulmonary findings -continue duonebs, solumedrol, azithromycin -transitioning from IV solumedrol to PO prednisone, Prednisone 60 mg today, Prednisone 40mg tomorrow for taper -D/C with nebulizer for prn use -pt has follow up appointment with his fermentologist at [place] next week HTN -c/w Lisinopril and norvasc Palpitations -pt believes this might be attributed to anxiety / panic attack -overnight tele monitor - Echo : grade 1 diastolic dysfxn DVT ppx: Heparin SQ GI ppx: Protonix DISPO: Home tomorrow Visit type - Emergency Visit Emergency Visit: No - New Patient This patient is new to me today: No - Critical Care Critical Care patient: No - Discharge Referral Referred to [facility] Med P.C.: No ATTENDING PHYSICIAN STATEMENT I saw and evaluated the patient. I reviewed the resident's note and discussed the case with the resident. I agree with the resident's findings and plan as documented. SUBJECTIVE: OBJECTIVE: ASSESSMENT AND PLAN:
[2018-10-20] MEDS ORDERED: ALBUTEROL SO4 0.083% IH SOL 2.5 MG/3 ML VIAL.NEB. NEB PRN (18:38)
[2018-10-20] MEDS ORDERED: ACETAMINOPHEN 325 MG TABLET (FP) PO PRN (18:38)
[2018-10-20] MEDS ORDERED: predniSONE 20 MG TABLET (UD) PO ONE (20:00)
[2018-10-21] MEDS ORDERED: methylPREDNISolone NA SUCC 40 MG/1 ML VIAL IVPUSH SCH (02:00)
[2018-10-21] MEDS: HEPARIN NA (PORCINE) 5,000 UNITS/ML 1ML VIAL SQ SCH (05:50)
[2018-10-21 07:02] LABS: HEMOGLOBIN 12.1 GM/dL (11.7-16.9); MCHC 33.7 g/dl (32.0-35.9); MEAN CELL VOLUME 91.9 fl (80-96); MEAN PLT VOLUME 9.2 fl (7.5-11.1); PLATELET COUNT 217 K/MM3 (134-434); RBC 3.92 M/mm3 (4.00-5.60); WHITE BLOOD COUNT 14.5 K/mm3 (4.0-10.0)
[2018-10-21 07:51] LABS: BLOOD UREA NITROGEN 32.9 mg/dL (7-18); CALCIUM 8.1 mg/dL (8.5-10.1); CREATININE 1.1 mg/dL (0.55-1.3); MAGNESIUM 2.2 mg/dL (1.8-2.4); PHOSPHOROUS 3.2 mg/dL (2.5-4.9)
[2018-10-21] MEDS: ALBUTEROL SO4 2.5/IPRATROPIUM 0.5 INH SOL 3 ML VIAL.NEB. NEB SCH ×2 (08:17→13:05)
[2018-10-21] MEDS ORDERED: PT OWN MED DRAWER 7, Y5N ONE ×4 (08:38→14:17)
[2018-10-21] MEDS ORDERED: amLODIPine BESYLATE 10 MG TABLET (FP) PO SCH (10:00)
[2018-10-21] MEDS ORDERED: PANTOPRAZOLE 40 MG TABLET (FP) PO SCH (10:00)
[2018-10-21] MEDS ORDERED: predniSONE 20 MG TABLET (UD) PO SCH (10:00)
[2018-10-21] MEDS ORDERED: AZITHROMYCIN IVPB 250 MG in DEXTROSE 5%-WATER - 250 ML IVPB SCH (10:00)
[2018-10-21] MEDS ORDERED: LISINOPRIL 10 MG TABLET (FP) PO SCH (10:00)
--- NOTE | 2018-10-21 11:32 | PN ---
Teaching Attending Note Name of Resident: Leslie Amos ATTENDING PHYSICIAN STATEMENT I saw and evaluated the patient. I reviewed the resident's note and discussed the case with the resident. I agree with the resident's findings and plan as documented. SUBJECTIVE:asymptomatic. denies Cp, SOB, fever, chills, cough, N/V/C/D. no palpitations this AM OBJECTIVE: Last Vital Signs Temp Pulse Resp BP Pulse Ox 98.2 F 106 H 20 156/73 95 10/21/18 10:00 10/21/18 11:13 10/21/18 10:00 10/21/18 10:00 10/21/18 11:13 General mildly anxious CV S1 S2 RRR no murmur/rub/gallop Lungs CTA B/L no wheeing/rales/rhonchi Abdomen soft NT/ND ASSESSMENT AND PLAN: 72 year old male with history of COPD, HTN, s/p appendectomy with reducible incisional abdominal hernia, presents with SOB/productive cough, found to be hypoxic in ED, requiring BiPAP. 1. Acute Hypoxic Respiratory Failure secondary to Acute Exacerbation COPD - clinically improved. saturating 98% on RA. on prednisone po. will do short taper. and re-start home inhalers. as pt ran out for over a month prior to arrival. PPI while on steroids. check pre and post. will need outpatient pulm follow up. 2. Palpitations- likely anxiety induced vs tachycardia from neb treatments. 3 beats of NSVT on monitor this Am. no assoc palpitations. echo reviewed. can f/u with cardio as outpatinet 3. anxiety- can be induced from breathing treatments or steroids. should improve with time. encourage close follow up with PMD 4. HTN- started on norvsc and lisinopril. can be further titrate as outpatient 5. d/c home today. counselled on importance of medication complaince and follow up
--- NOTE | 2018-10-21 12:13 | PN ---
Progress Note, Physician History of Present Illness: pulmonary alert,comfortable,oob-chair,dyspnea improved - Current Medication List Current Medications: Active Medications Acetaminophen (Tylenol -) 650 mg PO Q4H PRN PRN Reason: PAIN OR FEVER Albuterol Sulfate (Ventolin 0.083% Nebulizer Soln -) 1 amp NEB Q4H PRN PRN Reason: SHORT OF BREATH/WHEEZING Last Admin: 10/21/18 06:30 Dose: 1 amp Albuterol/Ipratropium (Duoneb -) 1 amp NEB RQID [facility] Last Admin: 10/21/18 08:17 Dose: 1 amp Amlodipine Besylate (Norvasc -) 10 mg PO DAILY [facility] Last Admin: 10/21/18 09:05 Dose: 10 mg Heparin Sodium (Porcine) (Heparin -) 5,000 unit SQ TID [facility] Last Admin: 10/21/18 05:50 Dose: 5,000 unit Azithromycin 250 mg/ Dextrose 250 mls @ 250 mls/hr IVPB DAILY [facility] Last Admin: 10/21/18 09:49 Dose: 250 mls/hr Lisinopril (Prinivil) 10 mg PO DAILY [facility] Last Admin: 10/21/18 09:05 Dose: 10 mg Pantoprazole Sodium (Protonix -) 40 mg PO DAILY [facility] Last Admin: 10/21/18 09:04 Dose: 40 mg Prednisone (Deltasone -) 40 mg PO DAILY [facility] Last Admin: 10/21/18 09:04 Dose: 40 mg - Objective Vital Signs: Vital Signs Temperature 98.2 F 10/21/18 10:00 Pulse Rate 106 H 10/21/18 11:13 Respiratory Rate 20 10/21/18 10:00 Blood Pressure 156/73 10/21/18 10:00 O2 Sat by Pulse Oximetry (%) 95 10/21/18 11:13 Constitutional: Yes: Well Nourished, Calm Eyes: Yes: WNL HENT: Yes: WNL Neck: Yes: WNL Cardiovascular: Yes: Regular Rate and Rhythm, S1, S2 Respiratory: Yes: CTA Bilaterally Gastrointestinal: Yes: Normal Bowel Sounds, Soft Extremities: Yes: WNL Edema: No Labs: CBC, BMP 10/21/18 06:10 10/21/18 06:10 Assessment/Plan Problem List - Problems (1) COPD exacerbation Code(s): J44.1 - CHRONIC OBSTRUCTIVE PULMONARY DISEASE W (ACUTE) EXACERBATION (2) HTN (hypertension) Code(s): I10 - ESSENTIAL (PRIMARY) HYPERTENSION (3) Glaucoma Code(s): H40.9 - UNSPECIFIED GLAUCOMA (4) Homeless Code(s): Z59.0 - HOMELESSNESS (5) Incisional hernia Code(s): K43.2 - INCISIONAL HERNIA WITHOUT OBSTRUCTION OR GANGRENE Assessment/Plan H/O HTN S/P APPENDECTOMY WITH INCISIONAL REDUCIBLE HERNIAS DIASTOLIC DYSFUNCTION [facility] PREDNISONE TAPER PATIENT HAS A FOLLOW UP APPOINTMENT AT [facility]
[2018-10-21 14:41] VITALS: BP 134/69; PULSE 83; TEMP 97.5
--- NOTE | 2018-10-21 16:33 | DS ---
Physical Exam: SUBJECTIVE: Patient seen and examined at bedside. pt has improved. pt states SOB resolved. pt wheezes have improved OBJECTIVE: Vital Signs Period Temp Pulse Resp BP Sys/Ferreira Pulse Ox Last 24 Hr 97.5 F-98.6 F 79-106 18-20 101-156/48-75 95-100 PHYSICAL EXAM GENERAL: The patient is awake, alert, and fully oriented, in no acute distress. HEAD: Normal with no signs of trauma. LUNGS: Breath sounds equal, clear to auscultation bilaterally, no wheezes, no crackles, no accessory muscle use. HEART: Regular rate and rhythm, S1, S2 without murmur, rub or gallop. ABDOMEN: Soft, nontender, nondistended, normoactive bowel sounds EXTREMITIES: 2+ pulses, warm, well-perfused, no edema. PSYCH: Normal mood, normal affect. SKIN: Warm, dry, normal turgor, no rashes or lesions noted. LABS Laboratory Results - last 24 hr 10/21/18 10/21/18 06:10 06:10 WBC 14.5 H RBC 3.92 L Hgb 12.1 Hct 36.0 MCV 91.9 MCH 31.0 MCHC 33.7 RDW 14.0 Plt Count 217 MPV 9.2 Sodium 141 Potassium 4.0 Chloride 110 H Carbon Dioxide 24 Anion Gap 7 L BUN 32.9 H Creatinine 1.1 Est GFR (CKD-EPI)AfAm 76.24 Est GFR (CKD-EPI)NonAf 65.78 Random Glucose 129 H Calcium 8.1 L Phosphorus 3.2 Magnesium 2.2 HOSPITAL COURSE: Date of Admission:10/18/18 72 yo M with PMH of COPD, HTN, glaucoma, abdominal hernia, shingles BIBEMS for acute shortness of breath and chest tightness. pt states this SOB is an ongoing issue for over a month with many recent hospital visits regarding this issue. Pt states these symptoms are worse on exertion. Pt also states he has been having a productive cough with yellow sputum. Pt states he still has productive cough but it has been improving this past week. Most recent hospital visit was 1 week ago ( [facility]) where he was discharged from the ED on doxycycline and breo ellipta. In the ED, pt experienced worsening SOB. The CXRAY showed no acute pulmonary findings. Decadron and duonebs given by EMS and the ED. pt BP in the ED 185/96. The pt was put on lisinopril and norvasc for his bp. Pt denies smoking history but states he has been exposed to second hand smoke. While in the ED the pt received BIPAP. The pt was titrated off BIPAP and supplemental O2 during his hospital stay. pt was transitioned from IV steroids to PO steroids. Pt was also on azithromycin during his hospital course. The pt had an echo during his stay in the hospital showing grade 1 diastolic dysfxn. he was monitored on tele for 1 night and the monitor showed no acute cardiac events. Pt was counselled on how to taper steroids. 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 Pt was sent home with prescriptions for prednisone taper, protonix, lisinopril, norvasc , symbicort, and atrovent inhalers. Date of Discharge: 10/21/18 DISPO: Home Minutes to complete discharge: 37 Discharge Summary Reason For Visit: ACUTE EXCERBATION OF CHRONIC OBSTRUCTIVE DISEASE Condition: Improved - Instructions Diet, Activity, Other Instructions: You presented to the hospital with trouble breathing. You were treated with antibiotics and inhalers. Medication Changes: 1. You will need to continue taking steroids for 6 days. You will need to taper down the dose for the next 6 days: - For 2 days(10/22,10/23) you will take 4 pills per day -2 days (10/24,10/25) you will take 3 pills per day - 2 days (10/26,10/27) you will take 2 pills per day -2 days (10/28,10/30) you will take 1 pill per day 2. You should continue taking Lisinopril and amlodipine once a day for your blood pressure. 3. continue using the inhaler as needed Follow up with the following physicians: 1. Please follow up with your primary care physician within 1 week to monitor your blood pressure. 2. Please follow up with your agency sales director for management of your COPD. Please return to the ER if you have any signs or symptoms of chest pain, shortness of breath, uncontrollable fever, chills, nausea, vomiting, numbness, tingling, or weakness in any part of your body, changes in vision, or slurred speech. Please return to the ER if symptoms persist, worsen, or new symptoms arise. Referrals: Yemi Rosales MD [Staff Physician] - Disposition: HOME - Home Medications Comprehensive Discharge Medication List: Ambulatory Orders Latanoprost 0.005% Eye Drops [Xalatan 0.005% Eye Drops -] 1 drop OU BID Timolol Maleate 1 drop OU BID 10/18/18 Amlodipine Besylate [Norvasc -] 10 mg PO DAILY #30 tablet 10/21/18 Budesonide/Formeterol Fumarate [SYMBICORT 160/4.5mcg -] 1 inh IH DAILY #1 inhaler 10/21/18 Ipratropium [place] [Atrovent Hfa] 12.9 gm IH PRN #1 inh 10/21/18 Lisinopril [Prinivil] 10 mg PO DAILY #30 tablet 10/21/18 Pantoprazole Sodium [Protonix -] 40 mg PO DAILY #30 tablet.ec 10/21/18 predniSONE [Deltasone -] See Taper PO ASDIR #22 tab 10/21/18 This patient is new to me today: No Emergency Visit: No Critical Care patient: No - Discharge Referral Referred to [facility] No ATTENDING PHYSICIAN STATEMENT I saw and evaluated the patient. I reviewed the resident's note and discussed the case with the resident. I agree with the resident's findings and plan as documented. SUBJECTIVE: OBJECTIVE: ASSESSMENT AND PLAN:
== END 2018-10-21 15:38 | disposition home or self-care (01) | DRG 190 ==
LOC: JER 18:40 → JERBED 20:34 → J5S 22:24 → J4S 10-20 17:53
PROVIDERS: ADMIT Internal Medicine; ATTEND Internal Medicine
DX: J44.1 Chronic obstructive pulmonary disease with (acute) exacerbation (principal); J96.01 Acute respiratory failure with hypoxia; I10 Essential (primary) hypertension; H40.9 Unspecified glaucoma; Z59.0 Homelessness; K43.2 Incisional hernia without obstruction or gangrene; F41.9 Anxiety disorder, unspecified; R00.2 Palpitations
CPT/HCPCS: 36415; 36600; 71045-TC-FY; 80048; 80053; 82803; 83605; 83735; 83880; 84100; 84484; 85025; 85027; 87040; 93005; 93010; 93306-TC; 94640; 94660; 94761; 99283-25; J1644

== ENCOUNTER 2019-05-24 08:17 | Inpatient (IN) | payer OTHER ==
[2019-05-24 08:26] VITALS: BMI 21.8
[2019-05-24] MEDS ORDERED: ALBUTEROL SO4 2.5/IPRATROPIUM 0.5 INH SOL 3 ML VIAL.NEB. NEB ONE ×4 (08:28→16:13)
[2019-05-24] MEDS ORDERED: DEXAMETHASONE SOD PHOSPHATE 10 MG/1 ML VIAL ONE (08:28)
--- NOTE | 2019-05-24 08:49 | PDOC ---
Attending Attestation - Resident Resident Name: Nancy Bailey - HPI HPI: 05/24/19 09:57 Pt presents to the ED complaining of wheezing and shortness of breath consistent with, but worse than, his chronic COPD. Patient has a history of COPD without ICU admissions or intubations, last in October. Also complaining of productive cough, but denies fever. No history of cardiac disease. 05/24/19 10:06 05/24/19 10:06 - Physicial Exam PE: 05/24/19 10:07 Agree with resident exam. Patient is tachypneic, Pox 90-94% on 3 L NC, speaking in 3-4 word sentences. + diffuse wheezing and prolonged expiratory phase. CV: rr no m/r/g Ext: no edema or tenderness. - Medical Decision Making 05/24/19 10:11 Pt presents to the ED complaining of shortness of breath and wheezing consistent with, but worse than, his typical COPD. Given nebs and steroids by EMS without much relief. Differential includes COPD exacerbation, CHF, less likely ACS, unlikely PE. Will check labs, CXR and EKG. Will treat with nebs and continue to monitor. Will start bipap if respiratory status becomes worse. Will admit to medicine.
[2019-05-24 09:53] LABS: ARTERIAL BLD GAS O2 SATURATION 89.5 % (95-98); ARTERIAL BLOOD GAS PCO2 36.7 mmHg (35-45); ARTERIAL BLOOD GAS PO2 57.9 mmHg (80-100); ARTERIAL BLOOD GAS pH 7.44 (7.35-7.45)
[2019-05-24 09:54] LABS: ALLENS TEST POSITIVE
--- NOTE | 2019-05-24 10:02 | PDOC ---
History of Present Illness - General Chief Complaint: Shortness of Breath Stated Complaint: DIFF. BREATHING/COPD Time Seen by Provider: 05/24/19 08:40 History Source: Patient - History of Present Illness Initial Comments: 05/24/19 12:08 The patient is a 73 male with a PMHx of COPD (on Atrovent) and HTN here today for shortness of breath. Patient states shortness of breath started yesterday when he was at home walking to the bathroom. Patient felt better after some rest but then felt short of breath later in the day and again this morning prompting him to come to the ED. Denies chest pain, lower extremity swelling, lightheadedness, palpitations. H/o viral URI including cough and runny nose. As per EMR, patient was admitted to our institution in October 2019 for COPD exacerbation. No admissions since that time. NKDA Past History - Past Medical History Allergies/Adverse Reactions: Allergies Allergy/AdvReac Type Severity Reaction Status Date / Time No Known Allergies Allergy Verified 11/09/18 13:19 Home Medications: Ambulatory Orders Latanoprost 0.005% Eye Drops [Xalatan 0.005% Eye Drops -] 1 drop OU BID Timolol Maleate 1 drop OU BID 10/18/18 Albuterol 0.083% Nebulizer Shyanne [Ventolin 0.083% Nebulizer Soln -] 1 amp NEB Q6H #1 box 11/13/18 Albuterol Sulfate Inhaler - [Ventolin HFA Inhaler -] 1 puff IH PRN PRN #1 inhaler 11/13/18 Amlodipine Besylate [Norvasc -] 10 mg PO DAILY #30 tablet 11/13/18 Budesonide/Formeterol Fumarate [SYMBICORT 160/4.5mcg -] 2 puff IH BID #1 inhaler 11/13/18 Fluticasone Prop 0.05% Nasal [Flonase -] 1 - 2 spray NS BID #1 spray.pump Fluticasone Prop 0.05% Nasal [Flonase -] 2 spray NS DAILY 30 Days spray Guaifenesin AC [Robitussin AC -] 10 ml PO Q8H PRN ud MDD 40 ml 11/13/18 Guaifenesin AC [Robitussin AC] 10 ml PO Q8H 5 Days ud MDD 40 ml 11/13/18 Guaifenesin [Robitussin] 10 ml PO PRN 10 Days #1 cup 11/13/18 Lisinopril [Prinivil] 10 mg PO DAILY #30 tablet 11/13/18 Nebulizer Accessories [Adult Aerosol Mask] 1 each MC Q6H #1 each 11/13/18 Nebulizer [Aeroeclipse II] 1 each MC Q6H #1 each 11/13/18 Pantoprazole Sodium [Protonix -] 40 mg PO DAILY #30 tablet.ec 11/13/18 Prednisone 10 mg PO ASDIR #20 tablet 11/13/18 Tiotropium [place] [Spiriva Respimat] 2 puff IH DAILY #1 inhaler 11/13/18 CVA: No COPD: Yes GI Disorders: No Disorders: No HTN: Yes (not on medication currently) Liver Disease: No Seizures: No - Surgical History Abdominal Surgery: Yes (pt states appendectomy, in the year 1999) - Psycho Social/Smoking Cessation Hx Smoking History: Never smoked Have you smoked in the past 12 months: No Number of Cigarettes Smoked Daily: 0 Hx Alcohol Use: No Drug/Substance Use Hx: No Substance Use Type: None Review of Systems - Review of Systems Constitutional: No: Diaphoresis, Fever HEENTM: No: Throat Pain Respiratory: Yes: Cough, Shortness of Breath Cardiac (ROS): No: Chest Pain, Lightheadedness, Palpitations, Syncope ABD/GI: No: Constipated, Diarrhea, Nausea, Vomiting *Physical Exam - Vital Signs Last Vital Signs Temp Pulse Resp BP Pulse Ox 98.9 F 122 H 27 H 143/73 95 05/24/19 08:23 05/24/19 08:23 05/24/19 08:23 05/24/19 08:23 05/24/19 09:09 - Physical Exam 05/24/19 12:28 Triage VS reviewed - HR 100's however s/p Duo Neb from EMS Alert, on NRB, speaking full sentences w/o significant distress B/L wheezing in anterior and posterior lung simms S1, S2, RRR 2+ DP pulses B/L A&O x3, CN II-XII intact ED Treatment Course - LABORATORY CBC & Chemistry Diagram: 05/24/19 09:00 05/24/19 09:00 - ADDITIONAL ORDERS Additional order review: Laboratory Results 05/24/19 09:03 Anticoagulation Therapy No Result Required. Puncture Site Left radial ABG pH 7.44 ABG pCO2 at Pt Temp 36.7 ABG pO2 at Pt Temp 57.9 L ABG HCO3 24.4 ABG O2 Sat (Measured) 89.5 L ABG O2 Content 16.5 ABG Base Excess 1.0 Hector Test Positive Carboxyhemoglobin 1.0 Methemoglobin 1.1 O2 Delivery Device N/c Oxygen Flow Rate 2lpm Vent Mode No Result Required. Vent Rate No Result Required. Mechanical Rate No Result Required. Pressure Support Vent No Result Required. - RADIOLOGY Radiology Studies Ordered: Category Date Time Status CHEST X-RAY PORTABLE* [RAD] Stat Radiology 05/24/19 08:37 Completed - Medications Given in the ED: ED Medications Discontinued Medications Generic Name Dose Route Start Last Admin Trade Name Freq PRN Reason Stop Dose Admin Albuterol/Ipratropium 1 amp 05/24/19 08:37 05/24/19 09:00 Duoneb - NEB 05/24/19 08:38 1 amp ONCE ONE Administration Medical Decision Making - Medical Decision Making 05/24/19 12:34 73 y/o male with shortness of breath SpO2 low 90's on NRB - speaking full sentences, not currently in acute respiratory distress History consistent with COPD exacerbation likely 2/2 to reported viral URI like symptoms PLAN - Duo Nebs x3 - CXR - Abx coverage for HI,Strep pneumo Planned disposition is admission 05/24/19 14:55 CBC, CMP unremarkable No CO2 retention on ABG Patient requires admission for monitoring Case d/w Dr. Camp, patient admitted to Med/Surg Clinical Impression: COPD Exacerbation Discharge - Discharge Information Problems reviewed: Yes Clinical Impression/Diagnosis: COPD exacerbation Condition: Fair - Admission Yes - Follow up/Referral - Patient Discharge Instructions - Post Discharge Activity
[2019-05-24 10:06] LABS: BASO % 1.3 % (0-2.0); EOS % 5.4 % (0-4.5); HEMOGLOBIN 13.9 GM/dL (11.7-16.9); LYMPH % 8.5 % (8-40); MCH 31.5 pg (25.7-33.7); MCHC 33.9 g/dl (32.0-35.9); MEAN PLT VOLUME 8.6 fl (7.5-11.1); MONO % 2.5 % (3.8-10.2); NEUT % 82.3 % (42.8-82.8); PLATELET COUNT 302 K/MM3 (134-434); RBC 4.41 M/mm3 (4.00-5.60); RDW 13.1 % (11.9-15.9)
[2019-05-24] MEDS ORDERED: AZITHROMYCIN IVPB 500 MG in DEXTROSE 5%-WATER - 250 ML IVPB ONE (10:22)
[2019-05-24] MEDS ORDERED: AZITHROMYCIN IVPB 500 MG/250 ML BAG IVPB ONE (10:28)
[2019-05-24 10:29] LABS: ALBUMIN 3.9 g/dl (3.4-5.0); ALK PHOS 96 U/L (45-117); ANION GAP 7 MMOL/L (8-16); BILIRUBIN,TOTAL 0.4 mg/dL (0.2-1); BLOOD UREA NITROGEN 16.6 mg/dL (7-18); CALCIUM 8.9 mg/dL (8.5-10.1); CHLORIDE 108 mmol/L (98-107); CO2 26 mmol/L (21-32); GLUCOSE,RANDOM 128 mg/dL (74-106); N-TERMINAL BNP 32.3 pg/ml (5-450); SGOT/AST 21 U/L (15-37); SGPT/ALT 31 U/L (13-61); SODIUM 141 mmol/L (136-145); TOT PROT 7.1 g/dl (6.4-8.2)
[2019-05-24] MEDS ORDERED: CEFTRIAXONE 1 GM/50 ML BAG ONE (10:29)
[2019-05-24] MEDS ORDERED: ALBUTEROL SO4 2.5/IPRATROPIUM 0.5 INH SOL 3 ML VIAL.NEB. NEB PRN (11:13)
--- NOTE | 2019-05-24 13:20 | HP ---
CHIEF COMPLAINT: shortness of breath or wheezing PCP:He does not have a PCP but he see a non licensed operator Dr. Hayden HISTORY OF PRESENT ILLNESS: The patient is a 73 male with a PMHx of COPD (on Atrovent) and HTN here today for shortness of breath. Patient states shortness of breath started yesterday when he was at home walking to the bathroom. Patient felt better after some rest but then felt short of breath later in the day and again this morning prompting him to come to the ED. Denies chest pain, lower extremity swelling, lightheadedness, palpitations. H/o viral URI including cough and runny nose. 0 multiple courses of nebulizer in the ER but still continued to have wheezing any fever chills nausea vomiting. He in the ER he received Rocephin and Zithromax. His chest x-ray in the ER is clear for any pneumonia. ER course was notable for: (1)Acute COPD (2)No pneumonia on chest x-ray (3) Recent Travel:Denies any travel history PAST MEDICAL HISTORY:COPD and hypertension glaucoma PAST SURGICAL HISTORY:None Social History:He is non-smoker alcohol or no drug use. Smoking: Alcohol: Drugs: Allergies No Known Allergies Allergy (Verified 11/09/18 13:19) HOME MEDICATIONS: Home Medications Medication Instructions Recorded Latanoprost 0.005% Eye Drops 1 drop OU BID 10/18/18 [Xalatan 0.005% Eye Drops -] Timolol Maleate 1 drop OU BID 10/18/18 Albuterol 0.083% Nebulizer Shyanne 1 amp NEB Q6H #1 box 11/13/18 [Ventolin 0.083% Nebulizer Soln -] Albuterol Sulfate Inhaler - 1 puff IH PRN PRN #1 inhaler 11/13/18 [Ventolin HFA Inhaler -] Amlodipine Besylate [Norvasc -] 10 mg PO DAILY #30 tablet 11/13/18 Budesonide/Formeterol Fumarate 2 puff IH BID #1 inhaler 11/13/18 [SYMBICORT 160/4.5mcg -] Fluticasone Prop 0.05% Nasal 1 - 2 spray NS BID #1 spray.pump 11/13/18 [Flonase -] Fluticasone Prop 0.05% Nasal 2 spray NS DAILY 30 Days spray 11/13/18 [Flonase -] Guaifenesin AC [Robitussin AC -] 10 ml PO Q8H PRN ud MDD 40 ml 11/13/18 Guaifenesin AC [Robitussin AC] 10 ml PO Q8H 5 Days ud MDD 40 ml 11/13/18 Guaifenesin [Robitussin] 10 ml PO PRN 10 Days #1 cup 11/13/18 Lisinopril [Prinivil] 10 mg PO DAILY #30 tablet 11/13/18 Nebulizer Accessories [Adult 1 each MC Q6H #1 each 11/13/18 Aerosol Mask] Nebulizer [Aeroeclipse II] 1 each MC Q6H #1 each 11/13/18 Pantoprazole Sodium [Protonix -] 40 mg PO DAILY #30 tablet.ec 11/13/18 Prednisone 10 mg PO ASDIR #20 tablet 11/13/18 Tiotropium [place] [Spiriva 2 puff IH DAILY #1 inhaler 11/13/18 Respimat] REVIEW OF SYSTEMS CONSTITUTIONAL: Absent: fever, chills, diaphoresis, generalized weakness, malaise, loss of appetite, weight change HEENT: Absent: rhinorrhea, nasal congestion, throat pain, throat swelling, difficulty swallowing, mouth swelling, ear pain, eye pain, visual changes CARDIOVASCULAR: Absent: chest pain, syncope, palpitations, irregular heart rate, lightheadedness , peripheral edema RESPIRATORY: He is a positive for cough shortness of breath or wheezing and no distress GASTROINTESTINAL: Absent: abdominal pain, abdominal distension, nausea, vomiting, diarrhea, constipation, melena, hematochezia GENITOURINARY: Absent: dysuria, frequency, urgency, hesitancy, hematuria, flank pain, genital pain MUSCULOSKELETAL: Absent: myalgia, arthralgia, joint swelling, back pain, neck pain SKIN: Absent: rash, itching, pallor HEMATOLOGIC/IMMUNOLOGIC: Absent: easy bleeding, easy bruising, lymphadenopathy, frequent infections ENDOCRINE: Absent: unexplained weight gain, unexplained weight loss, heat intolerance, cold intolerance NEUROLOGIC: Absent: headache, focal weakness or paresthesias, dizziness, unsteady gait, seizure, mental status changes, bladder or bowel incontinence PSYCHIATRIC: Absent: anxiety, depression, suicidal or homicidal ideation, hallucinations. PHYSICAL EXAMINATION Vital Signs - 24 hr 05/24/19 05/24/19 08:23 09:09 Temperature 98.9 F Pulse Rate 122 H Respiratory 27 H Rate Blood Pressure 143/73 O2 Sat by Pulse 97 95 Oximetry (%) GENERAL: Awake, alert, and fully oriented, in no acute distress. HEAD: Normal with no signs of trauma. EYES: Pupils equal, round and reactive to light, extraocular movements intact, sclera anicteric, conjunctiva clear. No lid lag. EARS, NOSE, THROAT: Ears normal, nares patent, oropharynx clear without exudates. Moist mucous membranes. NECK: Normal range of motion, supple without lymphadenopathy, JVD, or masses. LUNGS: Bilateral wheezing and moderate air entry HEART: Regular rate and rhythm, normal S1 and S2 without murmur, rub or gallop. ABDOMEN: Soft, nontender, not distended, normoactive bowel sounds, no guarding, no rebound, no masses. No hepatomegaly or splenomegaly. MUSCULOSKELETAL: Normal range of motion at all joints. No bony deformities or tenderness. No CVA tenderness. UPPER EXTREMITIES: 2+ pulses, warm, well-perfused. No cyanosis. No clubbing. No peripheral edema. LOWER EXTREMITIES: 2+ pulses, warm, well-perfused. No calf tenderness. No peripheral edema. NEUROLOGICAL: Cranial nerves II-XII intact. Normal speech. Normal gait. PSYCHIATRIC: Cooperative. Good eye contact. Appropriate mood and affect. SKIN: Warm, dry, normal turgor, no rashes or lesions noted, normal capillary refill. Laboratory Results - last 24 hr 05/24/19 05/24/19 05/24/19 09:00 09:00 09:03 WBC 8.0 RBC 4.41 Hgb 13.9 Hct 41.0 D MCV 93.0 MCH 31.5 MCHC 33.9 RDW 13.1 Plt Count 302 D MPV 8.6 Absolute Neuts (auto) 6.5 Neutrophils % 82.3 Lymphocytes % 8.5 D Monocytes % 2.5 L D Eosinophils % 5.4 H D Basophils % 1.3 D Nucleated RBC % 0 Anticoagulation Therapy No Result Required. Puncture Site Left radial ABG pH 7.44 ABG pCO2 at Pt Temp 36.7 ABG pO2 at Pt Temp 57.9 L ABG HCO3 24.4 ABG O2 Sat (Measured) 89.5 L ABG O2 Content 16.5 ABG Base Excess 1.0 Hector Test Positive Carboxyhemoglobin 1.0 Methemoglobin 1.1 O2 Delivery Device N/c Oxygen Flow Rate 2lpm Vent Mode No Result Required. Vent Rate No Result Required. Mechanical Rate No Result Required. Pressure Support Vent No Result Required. Sodium 141 Potassium 4.0 Chloride 108 H Carbon Dioxide 26 Anion Gap 7 L BUN 16.6 Creatinine 1.0 Est GFR (CKD-EPI)AfAm 84.95 Est GFR (CKD-EPI)NonAf 73.30 Random Glucose 128 H Calcium 8.9 Total Bilirubin 0.4 AST 21 ALT 31 Alkaline Phosphatase 96 Creatine Kinase 102 Troponin I < 0.02 B-Natriuretic Peptide 32.3 Total Protein 7.1 Albumin 3.9 ASSESSMENT/PLAN: The patient is a 73 male with a PMHx of COPD (on Atrovent) and HTN here today for shortness of breath. Admit to regular floor Start him on IV Depo-Medrol start him on p.o. Zithromax. Nebulizer treatment His home inhalers For hypertension renew his amlodipine for glaucoma we will renew his eyedrops. Pulmonary consult Visit type - Emergency Visit Emergency Visit: Yes ED Registration Date: 05/24/19 Care time: The patient presented to the Emergency Department on the above date and was hospitalized for further evaluation of their emergent condition. - New Patient This patient is new to me today: Yes Date on this admission: 05/24/19 - Critical Care Critical Care patient: No
--- NOTE | 2019-05-24 14:36 | CON.PULM ---
Consult Consult Specialty:: PULMONARY Referred by:: ZAYDA Reason for Consultation:: SOB - History of Present Illness Chief Complaint: SOB/COUGH History of Present Illness: The patient is a 73 male with a PMHx of COPD (on Atrovent) and HTN here today for shortness of breath. Patient states shortness of breath started yesterday when he was at home walking to the bathroom. Patient felt better after some rest but then felt short of breath later in the day and again this morning prompting him to come to the ED. Denies chest pain, lower extremity swelling, lightheadedness, palpitations. H/o viral URI including cough and runny nose. - History Source History Provided By: Patient, Medical Record Limitations to Obtaining History: Clinical Condition - Past Medical History FACE WORKER: No: Alzheimer's Cardio/Vascular: Yes: HTN. No: AFIB Pulmonary: Yes: Asthma, COPD. No: Previously Intubated ENT: Yes: Sinusitis, Other (GLAUCOMA) - Past Surgical History Past Surgical History: Yes: Appendectomy - Alcohol/Substance Use Hx Alcohol Use: No - Smoking History Smoking history: Never smoked Have you smoked in the past 12 months: No Aproximately how many cigarettes per day: 0 - Social History Usual Living Arrangement: Other ([facility]) ADL: Support Services History of Recent Travel: No Home Medications - Allergies Allergies/Adverse Reactions: Allergies Allergy/AdvReac Type Severity Reaction Status Date / Time No Known Allergies Allergy Verified 11/09/18 13:19 - Home Medications Home Medications: Ambulatory Orders Latanoprost 0.005% Eye Drops [Xalatan 0.005% Eye Drops -] 1 drop OU BID Timolol Maleate 1 drop OU BID 10/18/18 Albuterol 0.083% Nebulizer Shyanne [Ventolin 0.083% Nebulizer Soln -] 1 amp NEB Q6H #1 box 11/13/18 Albuterol Sulfate Inhaler - [Ventolin HFA Inhaler -] 1 puff IH PRN PRN #1 inhaler 11/13/18 Amlodipine Besylate [Norvasc -] 10 mg PO DAILY #30 tablet 11/13/18 Budesonide/Formeterol Fumarate [SYMBICORT 160/4.5mcg -] 2 puff IH BID #1 inhaler 11/13/18 Fluticasone Prop 0.05% Nasal [Flonase -] 1 - 2 spray NS BID #1 spray.pump Fluticasone Prop 0.05% Nasal [Flonase -] 2 spray NS DAILY 30 Days spray Guaifenesin AC [Robitussin AC -] 10 ml PO Q8H PRN ud MDD 40 ml 11/13/18 Guaifenesin AC [Robitussin AC] 10 ml PO Q8H 5 Days ud MDD 40 ml 11/13/18 Guaifenesin [Robitussin] 10 ml PO PRN 10 Days #1 cup 11/13/18 Lisinopril [Prinivil] 10 mg PO DAILY #30 tablet 11/13/18 Nebulizer Accessories [Adult Aerosol Mask] 1 each MC Q6H #1 each 11/13/18 Nebulizer [Aeroeclipse II] 1 each MC Q6H #1 each 11/13/18 Pantoprazole Sodium [Protonix -] 40 mg PO DAILY #30 tablet.ec 11/13/18 Prednisone 10 mg PO ASDIR #20 tablet 11/13/18 Tiotropium [place] [Spiriva Respimat] 2 puff IH DAILY #1 inhaler 11/13/18 Family Medical History Family History: Unremarkable Review of Systems - Review of Systems Constitutional: denies: Fever Eyes: denies: Blurred Vision HENT: denies: Difficult Swallowing Neck: denies: Decreased ROM Cardiovascular: denies: Chest Pain Respiratory: reports: Cough, Exercise Intolerance, SOB on Exertion, Wheezing. denies: Hemoptysis, Orthopnea Physical Exam Vital Sings: Vital Signs Temperature 98.9 F 05/24/19 08:23 Pulse Rate 122 H 05/24/19 08:23 Respiratory Rate 27 H 05/24/19 08:23 Blood Pressure 143/73 05/24/19 08:23 O2 Sat by Pulse Oximetry (%) 94 L 05/24/19 14:10 Constitutional: Yes: Anxious Eyes: Yes: EOM Intact HENT: Yes: Normocephalic Neck: Yes: Trachea Midline Cardiovascular: Yes: S1, S2 Respiratory: Yes: Diminished Gastrointestinal: Yes: Normal Bowel Sounds Edema: No Neurological: Yes: Alert Labs: CBC, BMP 05/24/19 09:00 05/24/19 09:00 ABG Results ABG pH 7.44 (7.35-7.45) 05/24/19 09:03 ABG pCO2 at Pt Temp 36.7 mmHg (35-45) 05/24/19 09:03 ABG pO2 at Pt Temp 57.9 mmHg (80-100) L 05/24/19 09:03 ABG HCO3 24.4 mmol/L (22-27) 05/24/19 09:03 ABG O2 Sat (Measured) 89.5 % (95-98) L 05/24/19 09:03 ABG O2 Content 16.5 % vol 05/24/19 09:03 ABG Base Excess 1.0 meq/l (-2-2) 05/24/19 09:03 REST REVIEWED Imaging - Results Chest X-ray: Report Reviewed, Image Reviewed Problem List - Problems (1) COPD exacerbation Code(s): J44.1 - CHRONIC OBSTRUCTIVE PULMONARY DISEASE W (ACUTE) EXACERBATION (2) Glaucoma Code(s): H40.9 - UNSPECIFIED GLAUCOMA (3) HTN (hypertension) Code(s): I10 - ESSENTIAL (PRIMARY) HYPERTENSION (4) Homeless Code(s): Z59.0 - HOMELESSNESS Assessment/Plan O2 SUPPLEMENTATION/BRONCHODILATION/STEROIDS/TRIAL OF DALIRESP EMPIRIC ANTIBIOTICS/ DVT/GI PROPHYLAXSIS WILL FOLLOW THANK YOU Didier BLANDON MD
[2019-05-24] MEDS ORDERED: methylPREDNISolone NA SUCC 40 MG/1 ML VIAL ONE (14:52)
[2019-05-24] MEDS: methylPREDNISolone NA SUCC 40 MG/1 ML VIAL IVPUSH SCH ×2 (15:08→21:05)
[2019-05-24] MEDS: ALBUTEROL SO4 2.5/IPRATROPIUM 0.5 INH SOL 3 ML VIAL.NEB. NEB SCH ×2 (16:26→21:04)
[2019-05-24] MEDS: BUDESONIDE/FORMETEROL FUMARATE 160/4.5 mcg INHALER IH SCH (21:05)
[2019-05-24] MEDS ORDERED: TIMOLOL MALEATE OU SCH (22:00)
[2019-05-25] MEDS: TIMOLOL 0.25% OPHTHALMIC SOL 5 ML BOTTLE OU SCH ×3 (00:04→21:34)
[2019-05-25] MEDS: LATANOPROST 0.005% OPHTH SOLN 2.5ML BOTTLE OU SCH ×3 (00:04→21:35)
[2019-05-25] MEDS: methylPREDNISolone NA SUCC 40 MG/1 ML VIAL IVPUSH SCH ×4 (02:37→21:34)
[2019-05-25] MEDS: ALBUTEROL SO4 2.5/IPRATROPIUM 0.5 INH SOL 3 ML VIAL.NEB. NEB SCH ×4 (08:05→21:39)
[2019-05-25] MEDS: ENOXAPARIN NA (PORCINE) 40 MG/0.4 ML DISP.SYRIN SQ SCH (09:32)
[2019-05-25] MEDS: LISINOPRIL 10 MG TABLET (FP) PO SCH (09:32)
[2019-05-25] MEDS: amLODIPine BESYLATE 10 MG TABLET (FP) PO SCH (09:32)
[2019-05-25] MEDS: BUDESONIDE/FORMETEROL FUMARATE 160/4.5 mcg INHALER IH SCH ×2 (09:32→21:35)
[2019-05-25] MEDS: AZITHROMYCIN 250 MG TABLET PO SCH (09:32)
--- NOTE | 2019-05-25 09:43 | EKG ---
Test Reason : Blood Pressure : / mmHG Vent. Rate : 112 BPM Atrial Rate : 112 BPM P-R Int : 168 ms QRS Dur : 070 ms QT Int : 342 ms P-R-T Axes : 078 034 023 degrees QTc Int : 466 ms SINUS TACHYCARDIA OTHERWISE NORMAL ECG WHEN COMPARED WITH ECG OF 09-NOV-2018 13:13, NO SIGNIFICANT CHANGE WAS FOUND Confirmed by Kiki Argueta ([id number]) on 05/25/2019 9:42:51 AM Referred By: Confirmed By:Kiki Argueta
--- NOTE | 2019-05-25 09:47 | PN ---
Physical Exam: SUBJECTIVE: Patient seen and examined. He says his breathing is much better. OBJECTIVE: Vital Signs Period Temp Pulse Resp BP Sys/Ferreira Pulse Ox Last 24 Hr 97.6 F-98.4 F 76-82 - 114-136/56-60 94 GENERAL: The patient is awake, alert, and fully oriented, in no acute distress. LUNGS: Breath sounds decreased throughout, no wheezes, no crackles, no accessory muscle use. HEART: Regular rate and rhythm, S1, S2 without murmur, rub or gallop. ABDOMEN: Soft, nontender, nondistended, normoactive bowel sounds, no guarding, no rebound, no hepatosplenomegaly, no masses. EXTREMITIES: 2+ pulses, warm, well-perfused, no edema. Laboratory Results - last 24 hr 05/24/19 05/24/19 05/24/19 09:00 09:00 09:03 WBC 8.0 RBC 4.41 Hgb 13.9 Hct 41.0 D MCV 93.0 MCH 31.5 MCHC 33.9 RDW 13.1 Plt Count 302 D MPV 8.6 Absolute Neuts (auto) 6.5 Neutrophils % 82.3 Lymphocytes % 8.5 D Monocytes % 2.5 L D Eosinophils % 5.4 H D Basophils % 1.3 D Nucleated RBC % 0 Anticoagulation Therapy No Result Required. Puncture Site Left radial ABG pH 7.44 ABG pCO2 at Pt Temp 36.7 ABG pO2 at Pt Temp 57.9 L ABG HCO3 24.4 ABG O2 Sat (Measured) 89.5 L ABG O2 Content 16.5 ABG Base Excess 1.0 Hector Test Positive Carboxyhemoglobin 1.0 Methemoglobin 1.1 O2 Delivery Device N/c Oxygen Flow Rate 2lpm Vent Mode No Result Required. Vent Rate No Result Required. Mechanical Rate No Result Required. Pressure Support Vent No Result Required. Sodium 141 Potassium 4.0 Chloride 108 H Carbon Dioxide 26 Anion Gap 7 L BUN 16.6 Creatinine 1.0 Est GFR (CKD-EPI)AfAm 84.95 Est GFR (CKD-EPI)NonAf 73.30 Random Glucose 128 H Calcium 8.9 Total Bilirubin 0.4 AST 21 ALT 31 Alkaline Phosphatase 96 Creatine Kinase 102 Troponin I < 0.02 B-Natriuretic Peptide 32.3 Total Protein 7.1 Albumin 3.9 Active Medications Generic Name Dose Route Start Last Admin Trade Name Fan PRN Reason Stop Dose Admin Albuterol/Ipratropium 1 amp 05/24/19 16:00 05/25/19 08:05 Duoneb - NEB 1 amp RQID NANCY Administration Amlodipine Besylate 10 mg 05/25/19 10:00 05/25/19 09:32 Norvasc - PO 10 mg DAILY NANCY Administration Azithromycin 500 mg 05/25/19 10:00 05/25/19 09:32 Zithromax - PO 500 mg DAILY NANCY Administration Budesonide/Formoterol Fumarate 2 puff 05/24/19 22:00 05/25/19 09:32 Symbicort 160/4.5mcg - IH 2 puff BID NANCY Administration Enoxaparin Sodium 40 mg 05/25/19 10:00 05/25/19 09:32 Lovenox - SQ 40 mg DAILY NANCY Administration Latanoprost 1 drop 05/24/19 22:00 05/25/19 00:04 Xalatan 0.005% Eye Drops - OU Not Given BID NANCY Lisinopril 10 mg 05/25/19 10:00 05/25/19 09:32 Prinivil PO 10 mg DAILY NANCY Administration Methylprednisolone Sodium Succinate 40 mg 05/24/19 15:00 05/25/19 09:32 Solu-Medrol - IVPUSH 40 mg Q6H-IV NANCY Administration Timolol Maleate 1 drop 05/24/19 22:00 05/25/19 00:04 Timoptic 0.25% OU Not Given BID NANCY ASSESSMENT/PLAN: This is a 73 year old man with a history of HTN, COPD, glaucoma who presented to the ED with SOB. 1. Acute exacerbation of COPD - Improving - Continue SoluMedrol, Symbicort, DuoNeb, Zithromax 2. HTN - Continue lisinopril, Norvasc 3. Glaucoma - Continue Timoptic, Xalatan Visit type - Emergency Visit Emergency Visit: Yes ED Registration Date: 05/24/19 Care time: The patient presented to the Emergency Department on the above date and was hospitalized for further evaluation of their emergent condition. - New Patient This patient is new to me today: Yes Date on this admission: 05/25/19 - Critical Care Critical Care patient: No - Discharge Referral Referred to [facility] Med [facility] No
--- NOTE | 2019-05-25 14:56 | PN ---
Progress Note (short form) - Note Progress Note: OOB to chair in the hallway. Reports breathing feels better today. No acute events overnight. Intake & Output 05/22/19 05/23/19 05/24/19 05/25/19 23:59 23:59 23:59 23:59 Intake Total 240 Output Total 100 Balance 240 -100 Weight 127 lb Last Vital Signs Temp Pulse Resp BP Pulse Ox 98.6 F 107 H 20 131/71 90 L 05/25/19 10:00 05/25/19 10:00 05/25/19 10:00 05/25/19 10:00 05/25/19 09:00 Active Medications Albuterol/Ipratropium (Duoneb -) 1 amp NEB RQID [facility] Last Admin: 05/25/19 12:58 Dose: 1 amp Amlodipine Besylate (Norvasc -) 10 mg PO DAILY [facility] Last Admin: 05/25/19 09:32 Dose: 10 mg Azithromycin (Zithromax -) 500 mg PO DAILY [facility] Last Admin: 05/25/19 09:32 Dose: 500 mg Budesonide/Formoterol Fumarate (Symbicort 160/4.5mcg -) 2 puff IH BID [facility] Last Admin: 05/25/19 09:32 Dose: 2 puff Cyclobenzaprine HCl (Flexeril -) 5 mg PO TID PRN PRN Reason: MUSCLE SPASMS Enoxaparin Sodium (Lovenox -) 40 mg SQ DAILY [facility] Last Admin: 05/25/19 09:32 Dose: 40 mg Latanoprost (Xalatan 0.005% Eye Drops -) 1 drop OU [facility] Lisinopril (Prinivil) 10 mg PO DAILY [facility] Last Admin: 05/25/19 09:32 Dose: 10 mg Methylprednisolone Sodium Succinate (Solu-Medrol -) 40 mg IVPUSH Q6H-IV [facility] Last Admin: 05/25/19 09:32 Dose: 40 mg Timolol Maleate (Timoptic 0.25%) 1 drop OU BID [facility] Last Admin: 05/25/19 14:53 Dose: Not Given Constitutional: Yes: NAD Eyes: Yes: EOM Intact HENT: Yes: Normocephalic Neck: Yes: Trachea Midline Cardiovascular: Yes: S1, S2 Respiratory: Yes: Scattered Expiratory Wheeze and rhonchi Gastrointestinal: Yes: Normal Bowel Sounds Edema: No Neurological: Yes: Alert Labs: Problem List - Problems (1) COPD exacerbation Code(s): J44.1 - CHRONIC OBSTRUCTIVE PULMONARY DISEASE W (ACUTE) EXACERBATION (2) Glaucoma Code(s): H40.9 - UNSPECIFIED GLAUCOMA (3) HTN (hypertension) Code(s): I10 - ESSENTIAL (PRIMARY) HYPERTENSION (4) Homeless Code(s): Z59.0 - HOMELESSNESS Assessment/Plan O2 SUPPLEMENTATION BRONCHODILATORS IV STEROIDS EMPIRIC ANTIBIOTICS NOTED DVT PROPHYLAXIS Dr Sawyer
[2019-05-25] MEDS: CYCLOBENZAPRINE HCL 10 MG TABLET (FP) PO PRN (16:19)
[2019-05-25] MEDS ORDERED: LATANOPROST 0.005% OPHTH SOLN 2.5ML BOTTLE OU SCH (22:00)
[2019-05-26] MEDS: methylPREDNISolone NA SUCC 40 MG/1 ML VIAL IVPUSH SCH ×4 (02:05→17:00)
--- NOTE | 2019-05-26 07:39 | PN ---
Physical Exam: SUBJECTIVE: Patient seen and examined at bed side , doing welll , breathing better , some wheezing on left base will taper steroids to Q 8hr OBJECTIVE: Vital Signs Period Temp Pulse Resp BP Sys/Ferreira Pulse Ox Last 24 Hr 97.7 F-98.7 F 94-108 20-20 120-131/59-72 90-95 GENERAL: AAOx3 in NAD HEAD: NC/AT EYES: EOMI, Conjunctiva clear, sclera anicteric ENT: moist mucous membrane NECK: Supple, no JVD LUNGS: CTA B/L, no crackles no wheezing no accessory muscle use. HEART: RRR, NSR, normal s1, s2, murmur no M/R/G ABDOMEN: obese Soft, ND, NT, +BS 4 Q, no CVA Tenderness, surgical scr and hernia ahsan umbilical LOWER EXTREMITIES: no edema, +2DP pulse, NEUROLOGICAL: No focal deficit. Normal speech. gait not observed. PSYCHIATRIC: Cooperative. Good eye contact. Appropriate mood and affect. SKIN: Warm, dry, Active Medications Generic Name Dose Route Start Last Admin Trade Name Freq PRN Reason Stop Dose Admin Albuterol/Ipratropium 1 amp 05/24/19 16:00 05/25/19 21:39 Duoneb - NEB 1 amp RQID NANCY Administration Amlodipine Besylate 10 mg 05/25/19 10:00 05/25/19 09:32 Norvasc - PO 10 mg DAILY NANCY Administration Azithromycin 500 mg 05/25/19 10:00 05/25/19 09:32 Zithromax - PO 500 mg DAILY NANCY Administration Budesonide/Formoterol Fumarate 2 puff 05/24/19 22:00 05/25/19 21:35 Symbicort 160/4.5mcg - IH 2 puff BID NANCY Administration Cyclobenzaprine HCl 5 mg 05/25/19 14:03 05/25/19 16:19 Flexeril - PO 5 mg TID PRN Administration MUSCLE SPASMS Enoxaparin Sodium 40 mg 05/25/19 10:00 05/25/19 09:32 Lovenox - SQ 40 mg DAILY NANCY Administration Latanoprost 1 drop 05/25/19 22:00 05/25/19 21:35 Xalatan 0.005% Eye Drops - OU 1 drop HS NANCY Administration Lisinopril 10 mg 05/25/19 10:00 05/25/19 09:32 Prinivil PO 10 mg DAILY NANCY Administration Methylprednisolone Sodium Succinate 40 mg 05/24/19 15:00 05/26/19 02:05 Solu-Medrol - IVPUSH 40 mg Q6H-IV NANCY Administration Timolol Maleate 1 drop 05/24/19 22:00 05/25/19 21:34 Timoptic 0.25% OU 1 drop BID NANCY Administration ASSESSMENT/PLAN: This is a 73 year old man with a history of HTN, COPD, glaucoma who presented to the ED with SOB. # COPD exacerbation * o2 supplement maintain O2 sat > 89-92 % * Bronchodilatos , * abx prophylaxis * Sulomedrol 40 Q 8hr * 9taper from Q 6hr * pulmonary consulted # HTN * cont lisinopril 10 mg PO daily and norvasc 10 mg daily # Glaucoma , stable cont timolol eye drop , and latanoprost # DVT proph lovenox 40 SQ daily # GI prophylaxis while on Steroids # muscle spasm on Flexeril 5mg TID PRN # History of umbilical hernia repair , follow up out pt # Homless need social placement upon dc # Dispo M/S Visit type - Emergency Visit Emergency Visit: Yes ED Registration Date: 05/24/19 Care time: The patient presented to the Emergency Department on the above date and was hospitalized for further evaluation of their emergent condition. - New Patient This patient is new to me today: Yes Date on this admission: 05/26/19 - Critical Care Critical Care patient: No ATTENDING PHYSICIAN STATEMENT I saw and evaluated the patient. I reviewed the resident's note and discussed the case with the resident. I agree with the resident's findings and plan as documented. SUBJECTIVE: OBJECTIVE: ASSESSMENT AND PLAN:
[2019-05-26] MEDS: ALBUTEROL SO4 2.5/IPRATROPIUM 0.5 INH SOL 3 ML VIAL.NEB. NEB SCH ×4 (07:56→20:25)
[2019-05-26] MEDS: ENOXAPARIN NA (PORCINE) 40 MG/0.4 ML DISP.SYRIN SQ SCH (10:31)
[2019-05-26] MEDS: amLODIPine BESYLATE 10 MG TABLET (FP) PO SCH (10:31)
[2019-05-26] MEDS: LISINOPRIL 10 MG TABLET (FP) PO SCH (10:32)
[2019-05-26] MEDS: BUDESONIDE/FORMETEROL FUMARATE 160/4.5 mcg INHALER IH SCH ×2 (10:32→22:13)
[2019-05-26] MEDS: TIMOLOL 0.25% OPHTHALMIC SOL 5 ML BOTTLE OU SCH ×2 (10:33→22:13)
[2019-05-26] MEDS: AZITHROMYCIN 250 MG TABLET PO SCH (10:34)
--- NOTE | 2019-05-26 13:04 | PN ---
Teaching Attending Note Name of Resident: Real Carballo ATTENDING PHYSICIAN STATEMENT I saw and evaluated the patient. I reviewed the resident's note and discussed the case with the resident. I agree with the resident's findings and plan as documented. SUBJECTIVE: Patient feels his breathing is improving. OBJECTIVE: Vital Signs Period Temp Pulse Resp BP Sys/Ferreira Pulse Ox Last 24 Hr 97.7 F-98.7 F 88-108 20-20 120-125/59-72 90-95 GENERAL: The patient is awake, alert, and fully oriented, in no acute distress. LUNGS: Breath sounds decreased throughout, no wheezes, no crackles, no accessory muscle use. HEART: Regular rate and rhythm, S1, S2 without murmur, rub or gallop. ABDOMEN: Soft, nontender, nondistended, normoactive bowel sounds, no guarding, no rebound, no hepatosplenomegaly, no masses. EXTREMITIES: 2+ pulses, warm, well-perfused, no edema. Current Medications Generic Name Dose Route Start Last Admin Trade Name Freq PRN Reason Stop Dose Admin Albuterol/Ipratropium 1 amp 05/24/19 16:00 05/26/19 11:55 Duoneb - NEB 1 amp RQID NANCY Administration Amlodipine Besylate 10 mg 05/25/19 10:00 05/26/19 10:31 Norvasc - PO 10 mg DAILY NANCY Administration Azithromycin 500 mg 05/25/19 10:00 05/26/19 10:34 Zithromax - PO 500 mg DAILY NANCY Administration Budesonide/Formoterol Fumarate 2 puff 05/24/19 22:00 05/26/19 10:32 Symbicort 160/4.5mcg - IH 2 puff BID NANCY Administration Cyclobenzaprine HCl 5 mg 05/25/19 14:03 05/25/19 16:19 Flexeril - PO 5 mg TID PRN Administration MUSCLE SPASMS Enoxaparin Sodium 40 mg 05/25/19 10:00 05/26/19 10:31 Lovenox - SQ 40 mg DAILY NANCY Administration Latanoprost 1 drop 05/25/19 22:00 05/25/19 21:35 Xalatan 0.005% Eye Drops - OU 1 drop HS NANCY Administration Lisinopril 10 mg 05/25/19 10:00 05/26/19 10:32 Prinivil PO 10 mg DAILY NANCY Administration Methylprednisolone Sodium Succinate 40 mg 05/26/19 10:00 05/26/19 10:34 Solu-Medrol - IVPUSH 40 mg Q8H-IV NANCY Administration Timolol Maleate 1 drop 05/24/19 22:00 05/26/19 10:33 Timoptic 0.25% OU 1 drop BID NANCY Administration ASSESSMENT AND PLAN: This is a 73 year old man with a history of HTN, COPD, glaucoma who presented to the ED with SOB. 1. Acute exacerbation of COPD - Improving - Taper SoluMedrol - Continue Symbicort, DuoNeb, Zithromax 2. HTN - Continue lisinopril, Norvasc 3. Glaucoma - Continue Timoptic, Xalatan
--- NOTE | 2019-05-26 16:02 | PN ---
Progress Note (short form) - Note Progress Note: Reports breathing feels better today. No acute events overnight. Intake & Output 05/23/19 05/24/19 05/25/19 05/26/19 23:59 23:59 23:59 23:59 Intake Total 240 500 980 Output Total 100 0 Balance 240 400 980 Weight 127 lb Last Vital Signs Temp Pulse Resp BP Pulse Ox 97.5 F L 93 H 18 127/68 94 L 05/26/19 13:45 05/26/19 13:45 05/26/19 13:45 05/26/19 13:45 05/26/19 13:00 Active Medications Albuterol/Ipratropium (Duoneb -) 1 amp NEB RQID [facility] Last Admin: 05/26/19 11:55 Dose: 1 amp Amlodipine Besylate (Norvasc -) 10 mg PO DAILY [facility] Last Admin: 05/26/19 10:31 Dose: 10 mg Azithromycin (Zithromax -) 500 mg PO DAILY [facility] Last Admin: 05/26/19 10:34 Dose: 500 mg Budesonide/Formoterol Fumarate (Symbicort 160/4.5mcg -) 2 puff IH BID [facility] Last Admin: 05/26/19 10:32 Dose: 2 puff Cyclobenzaprine HCl (Flexeril -) 5 mg PO TID PRN PRN Reason: MUSCLE SPASMS Last Admin: 05/25/19 16:19 Dose: 5 mg Enoxaparin Sodium (Lovenox -) 40 mg SQ DAILY [facility] Last Admin: 05/26/19 10:31 Dose: 40 mg Latanoprost (Xalatan 0.005% Eye Drops -) 1 drop OU HS [facility] Last Admin: 05/25/19 21:35 Dose: 1 drop Lisinopril (Prinivil) 10 mg PO DAILY [facility] Last Admin: 05/26/19 10:32 Dose: 10 mg Methylprednisolone Sodium Succinate (Solu-Medrol -) 40 mg IVPUSH Q8H-IV [facility] Last Admin: 05/26/19 10:34 Dose: 40 mg Timolol Maleate (Timoptic 0.25%) 1 drop OU BID [facility] Last Admin: 05/26/19 10:33 Dose: 1 drop Constitutional: Yes: NAD Eyes: Yes: EOM Intact HENT: Yes: Normocephalic Neck: Yes: Trachea Midline Cardiovascular: Yes: S1, S2 Respiratory: Yes: Improving scattered Expiratory Wheeze and rhonchi Gastrointestinal: Yes: Normal Bowel Sounds Edema: No Neurological: Yes: Alert Labs: Problem List - Problems (1) COPD exacerbation Code(s): J44.1 - CHRONIC OBSTRUCTIVE PULMONARY DISEASE W (ACUTE) EXACERBATION (2) Glaucoma Code(s): H40.9 - UNSPECIFIED GLAUCOMA (3) HTN (hypertension) Code(s): I10 - ESSENTIAL (PRIMARY) HYPERTENSION (4) Homeless Code(s): Z59.0 - HOMELESSNESS Assessment/Plan O2 SUPPLEMENTATION BRONCHODILATORS IV STEROIDS EMPIRIC ANTIBIOTICS DVT PROPHYLAXIS Dr Sawyer
[2019-05-26] MEDS: LATANOPROST 0.005% OPHTH SOLN 2.5ML BOTTLE OU SCH (22:13)
[2019-05-27] MEDS: methylPREDNISolone NA SUCC 40 MG/1 ML VIAL IVPUSH SCH ×3 (01:13→17:10)
[2019-05-27 08:07] LABS: ALBUMIN 2.9 g/dl (3.4-5.0); ALK PHOS 67 U/L (45-117); BILIRUBIN,TOTAL 0.3 mg/dL (0.2-1); BLOOD UREA NITROGEN 40.8 mg/dL (7-18); CALCIUM 8.1 mg/dL (8.5-10.1); CHLORIDE 111 mmol/L (98-107); CO2 20 mmol/L (21-32); CREATININE 1.1 mg/dL (0.55-1.3); GLUCOSE,RANDOM 150 mg/dL (74-106); SGPT/ALT 27 U/L (13-61); SODIUM 139 mmol/L (136-145); TOT PROT 5.9 g/dl (6.4-8.2)
[2019-05-27 08:21] LABS: BASO % 0.6 % (0-2.0); EOS % 0.1 % (0-4.5); HEMATOCRIT 38.7 % (35.4-49); HEMOGLOBIN 12.8 GM/dL (11.7-16.9); LYMPH % 2.4 % (8-40); MCH 31.3 pg (25.7-33.7); MCHC 33.2 g/dl (32.0-35.9); MEAN CELL VOLUME 94.3 fl (80-96); MEAN PLT VOLUME 10.3 fl (7.5-11.1); MONO % 2.1 % (3.8-10.2); NEUT % 94.8 % (42.8-82.8); PLATELET COUNT 68 K/MM3 (134-434); RBC 4.11 M/mm3 (4.00-5.60); RDW 13.5 % (11.9-15.9); WHITE BLOOD COUNT 10.1 K/mm3 (4.0-10.0)
[2019-05-27] MEDS: ALBUTEROL SO4 2.5/IPRATROPIUM 0.5 INH SOL 3 ML VIAL.NEB. NEB SCH ×4 (08:40→20:17)
[2019-05-27] MEDS: PANTOPRAZOLE 20 MG TABLET PO SCH (09:24)
[2019-05-27] MEDS: LISINOPRIL 10 MG TABLET (FP) PO SCH (09:24)
[2019-05-27] MEDS: amLODIPine BESYLATE 10 MG TABLET (FP) PO SCH (09:24)
--- NOTE | 2019-05-27 09:28 | PN ---
Physical Exam: SUBJECTIVE: Patient seen and examined completed 3 days course of azithromycin dc abx and lovenox due to thrombocytopenia Sertotonin release assay to R.O HIT OBJECTIVE: Vital Signs Period Temp Pulse Resp BP Sys/Ferreira Pulse Ox Last 24 Hr 97.5 F-98.1 F 87-93 18-20 122-136/61-73 94-95 GENERAL: AAOx3 in NAD HEAD: NC/AT EYES: EOMI, Conjunctiva clear, sclera anicteric ENT: moist mucous membrane NECK: Supple, no JVD LUNGS: diffuse wheezing HEART: RRR, NSR, normal s1, s2, murmur no M/R/G ABDOMEN: obese Soft, ND, NT, +BS 4 Q, no CVA Tenderness, surgical scar and hernia ahsan umbilical LOWER EXTREMITIES: no edema, +2DP pulse, NEUROLOGICAL: No focal deficit. Normal speech. gait not observed. PSYCHIATRIC: Cooperative. Good eye contact. Appropriate mood and affect. SKIN: Warm, dry, Laboratory Results - last 24 hr 05/27/19 05/27/19 06:50 06:50 WBC 10.1 H RBC 4.11 Hgb 12.8 Hct 38.7 MCV 94.3 MCH 31.3 MCHC 33.2 RDW 13.5 Plt Count 68 L D MPV 10.3 D Absolute Neuts (auto) 9.6 H Neutrophils % 94.8 H Lymphocytes % 2.4 L D Monocytes % 2.1 L Eosinophils % 0.1 D Basophils % 0.6 Nucleated RBC % 0 Sodium 139 Chloride 111 H Carbon Dioxide 20 L BUN 40.8 H Creatinine 1.1 Est GFR (CKD-EPI)AfAm 75.71 Est GFR (CKD-EPI)NonAf 65.32 Random Glucose 150 H Calcium 8.1 L Total Bilirubin 0.3 ALT 27 Alkaline Phosphatase 67 Total Protein 5.9 L Albumin 2.9 L Active Medications Generic Name Dose Route Start Last Admin Trade Name Freq PRN Reason Stop Dose Admin Albuterol/Ipratropium 1 amp 05/24/19 16:00 05/26/19 20:25 Duoneb - NEB 1 amp RQID NANCY Administration Amlodipine Besylate 10 mg 05/25/19 10:00 05/26/19 10:31 Norvasc - PO 10 mg DAILY NANCY Administration Budesonide/Formoterol Fumarate 2 puff 05/24/19 22:00 05/26/19 22:13 Symbicort 160/4.5mcg - IH 2 puff BID NANCY Administration Cyclobenzaprine HCl 5 mg 05/25/19 14:03 05/25/19 16:19 Flexeril - PO 5 mg TID PRN Administration MUSCLE SPASMS Latanoprost 1 drop 05/25/19 22:00 05/26/19 22:13 Xalatan 0.005% Eye Drops - OU 1 drop HS NANCY Administration Lisinopril 10 mg 05/25/19 10:00 05/26/19 10:32 Prinivil PO 10 mg DAILY NANCY Administration Methylprednisolone Sodium Succinate 40 mg 05/26/19 10:00 05/27/19 01:13 Solu-Medrol - IVPUSH 40 mg Q8H-IV NANCY Administration Pantoprazole Sodium 20 mg 05/27/19 10:00 Protonix - PO DAILY NANCY Timolol Maleate 1 drop 05/24/19 22:00 05/26/19 22:13 Timoptic 0.25% OU 1 drop BID NANCY Administration CBC, BMP 05/27/19 06:50 05/27/19 06:50 ASSESSMENT/PLAN: This is a 73 year old man with a history of HTN, COPD, glaucoma who presented to the ED with SOB. # COPD exacerbation * o2 supplement maintain O2 sat > 89-92 % * Bronchodilatos , * abx prophylaxis completed * Sulomedrol 40 Q 8hr taper from Q 6hr * pulmonary consulted add fluticasone , nasal spray and Humidify o2 # thrombocytopenia DC Azithromycin S.P 3 days and DC lovenox send Serotnin release assay to R.O HIT no active bleeding , monitor cbc daily # HTN * cont lisinopril 10 mg PO daily and norvasc 10 mg daily # Glaucoma , stable cont timolol eye drop , and latanoprost # DVT proph lovenox 40 SQ daily # GI prophylaxis while on Steroids # muscle spasm on Flexeril 5mg TID PRN # History of umbilical hernia repair , follow up out pt # Homless need social placement upon dc # Dispo M/S Visit type - Emergency Visit Emergency Visit: Yes ED Registration Date: 05/24/19 Care time: The patient presented to the Emergency Department on the above date and was hospitalized for further evaluation of their emergent condition. - New Patient This patient is new to me today: No - Critical Care Critical Care patient: No ATTENDING PHYSICIAN STATEMENT I saw and evaluated the patient. I reviewed the resident's note and discussed the case with the resident. I agree with the resident's findings and plan as documented. SUBJECTIVE: OBJECTIVE: ASSESSMENT AND PLAN:
[2019-05-27] MEDS: BUDESONIDE/FORMETEROL FUMARATE 160/4.5 mcg INHALER IH SCH ×2 (09:33→21:00)
[2019-05-27] MEDS: TIMOLOL 0.25% OPHTHALMIC SOL 5 ML BOTTLE OU SCH ×2 (09:34→21:00)
[2019-05-27 09:49] LABS: ANISOCYTOSIS 0; MACROCYTOSIS 0; PLATELET ESTIMATE DECREASED
[2019-05-27 10:06] LABS: POTASSIUM 4.8 mmol/L (3.5-5.1); SGOT/AST 25 U/L (15-37)
[2019-05-27] MEDS: CYCLOBENZAPRINE HCL 10 MG TABLET (FP) PO PRN (10:31)
--- NOTE | 2019-05-27 13:29 | PN ---
Progress Note (short form) - Note Progress Note: Reports breathing feels about the same as yesterday. Nasal congestion (chronic). No acute events overnight. Intake & Output 05/24/19 05/25/19 05/26/19 05/27/19 23:59 23:59 23:59 23:59 Intake Total 493 318 0134 600 Output Total 100 0 Balance 310 939 3761 600 Weight 127 lb Last Vital Signs Temp Pulse Resp BP Pulse Ox 97.9 F 87 20 136/71 95 05/27/19 08:59 05/27/19 08:59 05/27/19 08:59 05/27/19 08:59 05/27/19 09:00 Active Medications Albuterol/Ipratropium (Duoneb -) 1 amp NEB RQID [facility] Last Admin: 05/27/19 11:50 Dose: 1 amp Amlodipine Besylate (Norvasc -) 10 mg PO DAILY [facility] Last Admin: 05/27/19 09:24 Dose: 10 mg Budesonide/Formoterol Fumarate (Symbicort 160/4.5mcg -) 2 puff IH BID [facility] Last Admin: 05/27/19 09:33 Dose: 2 puff Cyclobenzaprine HCl (Flexeril -) 5 mg PO TID PRN PRN Reason: MUSCLE SPASMS Last Admin: 05/27/19 10:31 Dose: 5 mg Latanoprost (Xalatan 0.005% Eye Drops -) 1 drop OU HS [facility] Last Admin: 05/26/19 22:13 Dose: 1 drop Lisinopril (Prinivil) 10 mg PO DAILY [facility] Last Admin: 05/27/19 09:24 Dose: 10 mg Methylprednisolone Sodium Succinate (Solu-Medrol -) 40 mg IVPUSH Q8H-IV [facility] Last Admin: 05/27/19 09:25 Dose: 40 mg Pantoprazole Sodium (Protonix -) 20 mg PO DAILY [facility] Last Admin: 05/27/19 09:24 Dose: 20 mg Timolol Maleate (Timoptic 0.25%) 1 drop OU BID [facility] Last Admin: 05/27/19 09:34 Dose: 1 drop Constitutional: Yes: NAD Eyes: Yes: EOM Intact HENT: Yes: Normocephalic Neck: Yes: Trachea Midline Cardiovascular: Yes: S1, S2 Respiratory: Yes: Improving scattered Expiratory Wheeze and rhonchi Gastrointestinal: Yes: Normal Bowel Sounds Edema: No Neurological: Yes: Alert Labs: Laboratory Results - last 24 hr 05/27/19 05/27/19 06:50 06:50 WBC 10.1 H RBC 4.11 Hgb 12.8 Hct 38.7 MCV 94.3 MCH 31.3 MCHC 33.2 RDW 13.5 Plt Count 68 L D MPV 10.3 D Absolute Neuts (auto) 9.6 H Neutrophils % 94.8 H Neutrophils % (Manual) 96.2 H Band Neutrophils % 0.0 Lymphocytes % 2.4 L D Lymphocytes % (Manual) 0.9 L Monocytes % 2.1 L Monocytes % (Manual) 3 L D Eosinophils % 0.1 D Eosinophils % (Manual) 0.0 Basophils % 0.6 Basophils % (Manual) 0.0 Myelocytes % (Man) 0 Promyelocytes % (Man) 0 Blast Cells % (Manual) 0 Nucleated RBC % 0 Metamyelocytes 0 Hypochromia 0 Platelet Estimate Decreased Polychromasia 0 Poikilocytosis 0 Anisocytosis 0 Microcytosis 0 Macrocytosis 0 Sodium 139 Potassium 4.8 Chloride 111 H Carbon Dioxide 20 L Anion Gap No Result Required. BUN 40.8 H Creatinine 1.1 Est GFR (CKD-EPI)AfAm 75.71 Est GFR (CKD-EPI)NonAf 65.32 Random Glucose 150 H Calcium 8.1 L Total Bilirubin 0.3 AST 25 ALT 27 Alkaline Phosphatase 67 Total Protein 5.9 L Albumin 2.9 L Problem List - Problems (1) COPD exacerbation Code(s): J44.1 - CHRONIC OBSTRUCTIVE PULMONARY DISEASE W (ACUTE) EXACERBATION (2) Glaucoma Code(s): H40.9 - UNSPECIFIED GLAUCOMA (3) HTN (hypertension) Code(s): I10 - ESSENTIAL (PRIMARY) HYPERTENSION (4) Homeless Code(s): Z59.0 - HOMELESSNESS Assessment/Plan ADD NASAL SALINE AND FLUTICASONE HUMIDIFY O2 NO SMOKING O2 SUPPLEMENTATION BRONCHODILATORS IV STEROIDS MONITOR OFF ANTIBIOTICS DVT PROPHYLAXIS Dr Sawyer
--- NOTE | 2019-05-27 14:13 | PN ---
Teaching Attending Note Name of Resident: Real Carballo ATTENDING PHYSICIAN STATEMENT I saw and evaluated the patient. I reviewed the resident's note and discussed the case with the resident. I agree with the resident's findings and plan as documented. SUBJECTIVE: No complaints. OBJECTIVE: Vital Signs Period Temp Pulse Resp BP Sys/Ferreira Pulse Ox Last 24 Hr 97.8 F-98.1 F 87-92 18-20 122-136/61-73 95-95 GENERAL: The patient is awake, alert, and fully oriented, in no acute distress. LUNGS: Breath sounds decreased throughout, few wheezes, no crackles, no accessory muscle use. HEART: Regular rate and rhythm, S1, S2 without murmur, rub or gallop. ABDOMEN: Soft, nontender, nondistended, normoactive bowel sounds, no guarding, no rebound, no hepatosplenomegaly, no masses. EXTREMITIES: 2+ pulses, warm, well-perfused, no edema. Laboratory Results - last 24 hr 05/27/19 05/27/19 06:50 06:50 WBC 10.1 H RBC 4.11 Hgb 12.8 Hct 38.7 MCV 94.3 MCH 31.3 MCHC 33.2 RDW 13.5 Plt Count 68 L D MPV 10.3 D Absolute Neuts (auto) 9.6 H Neutrophils % 94.8 H Neutrophils % (Manual) 96.2 H Band Neutrophils % 0.0 Lymphocytes % 2.4 L D Lymphocytes % (Manual) 0.9 L Monocytes % 2.1 L Monocytes % (Manual) 3 L D Eosinophils % 0.1 D Eosinophils % (Manual) 0.0 Basophils % 0.6 Basophils % (Manual) 0.0 Myelocytes % (Man) 0 Promyelocytes % (Man) 0 Blast Cells % (Manual) 0 Nucleated RBC % 0 Metamyelocytes 0 Hypochromia 0 Platelet Estimate Decreased Polychromasia 0 Poikilocytosis 0 Anisocytosis 0 Microcytosis 0 Macrocytosis 0 Sodium 139 Potassium 4.8 Chloride 111 H Carbon Dioxide 20 L Anion Gap No Result Required. BUN 40.8 H Creatinine 1.1 Est GFR (CKD-EPI)AfAm 75.71 Est GFR (CKD-EPI)NonAf 65.32 Random Glucose 150 H Calcium 8.1 L Total Bilirubin 0.3 AST 25 ALT 27 Alkaline Phosphatase 67 Total Protein 5.9 L Albumin 2.9 L Current Medications Generic Name Dose Route Start Last Admin Trade Name Freq PRN Reason Stop Dose Admin Albuterol/Ipratropium 1 amp 05/24/19 16:00 05/27/19 11:50 Duoneb - NEB 1 amp RQID NANCY Administration Amlodipine Besylate 10 mg 05/25/19 10:00 05/27/19 09:24 Norvasc - PO 10 mg DAILY NANCY Administration Budesonide/Formoterol Fumarate 2 puff 05/24/19 22:00 05/27/19 09:33 Symbicort 160/4.5mcg - IH 2 puff BID NANCY Administration Cyclobenzaprine HCl 5 mg 05/25/19 14:03 05/27/19 10:31 Flexeril - PO 5 mg TID PRN Administration MUSCLE SPASMS Fluticasone Propionate 2 spray 05/27/19 13:45 Flonase - NS DAILY NANCY Latanoprost 1 drop 05/25/19 22:00 05/26/19 22:13 Xalatan 0.005% Eye Drops - OU 1 drop HS NANCY Administration Lisinopril 10 mg 05/25/19 10:00 05/27/19 09:24 Prinivil PO 10 mg DAILY [facility] Administration Methylprednisolone Sodium Succinate 40 mg 05/26/19 10:00 05/27/19 09:25 Solu-Medrol - IVPUSH 40 mg Q8H-IV [facility] Administration Pantoprazole Sodium 20 mg 05/27/19 10:00 05/27/19 09:24 Protonix - PO 20 mg DAILY [facility] Administration Sodium Chloride 2 spray 05/27/19 13:30 [place] Nas[place] - NS TID PRN NASAL CONGESTION Timolol Maleate 1 drop 05/24/19 22:00 05/27/19 09:34 Timoptic 0.25% OU 1 drop BID NANCY Administration ASSESSMENT AND PLAN: This is a 73 year old man with a history of HTN, COPD, glaucoma who presented to the ED with SOB. 1. Acute exacerbation of COPD - Improving - Continue SoluMedrol, Symbicort, DuoNeb, Zithromax 2. Thrombocytopenia - Repeat CBC and discontinue Lovenox if platelet count low 3. HTN - Continue lisinopril, Norvasc 4. Glaucoma - Continue Timoptic, Xalatan
[2019-05-27] MEDS ORDERED: PT OWN MED DRAWER 7, Y5N ONE (14:36)
[2019-05-27 15:34] LABS: HEMATOCRIT 37.2 % (35.4-49); HEMOGLOBIN 12.4 GM/dL (11.7-16.9); LYMPH % 2.4 % (8-40); MCH 30.9 pg (25.7-33.7); MCHC 33.3 g/dl (32.0-35.9); MEAN CELL VOLUME 92.9 fl (80-96); MEAN PLT VOLUME 8.6 fl (7.5-11.1); MONO % 2.1 % (3.8-10.2); NEUT % 95.5 % (42.8-82.8); PLATELET COUNT 287 K/MM3 (134-434); RBC 4.01 M/mm3 (4.00-5.60); RDW 13.2 % (11.9-15.9); WHITE BLOOD COUNT 11.1 K/mm3 (4.0-10.0)
[2019-05-27] MEDS: FLUTICASONE PROP 0.05% 16 GM NASAL SPRAY NS SCH (16:08)
[2019-05-27 16:14] LABS: PLATELET ESTIMATE ADEQUATE
[2019-05-27] MEDS: LATANOPROST 0.005% OPHTH SOLN 2.5ML BOTTLE OU SCH (21:00)
[2019-05-27] MEDS: SODIUM CHLORIDE NASAL SPRAY 44 ML BOTTLE NS PRN (21:01)
[2019-05-28] MEDS: methylPREDNISolone NA SUCC 40 MG/1 ML VIAL IVPUSH SCH ×3 (01:21→21:22)
--- NOTE | 2019-05-28 06:21 | PN ---
Physical Exam: SUBJECTIVE: Patient seen and examined completed 3 days course of azithromycin dc abx and lovenox due to thrombocytopenia , plt normalised today probably lab error vs pseudo thrombocytopenia Sertotonin release assay to R.O HIT pre and post today work on placement taper steroids around noon had chocked with chicken while he was eating , call team did matt manuever and back to his base , o2 sat fine cxr with no acute process OBJECTIVE: Vital Signs Period Temp Pulse Resp BP Sys/Ferreira Pulse Ox Last 24 Hr 97.4 F-98.4 F 84-94 19-20 114-136/53-74 95-95 GENERAL: AAOx3 in NAD HEAD: NC/AT EYES: EOMI, Conjunctiva clear, sclera anicteric ENT: moist mucous membrane NECK: Supple, no JVD LUNGS: diffuse wheezing HEART: RRR, NSR, normal s1, s2, murmur no M/R/G ABDOMEN: obese Soft, ND, NT, +BS 4 Q, no CVA Tenderness, surgical scar and hernia ahsan umbilical LOWER EXTREMITIES: no edema, +2DP pulse, NEUROLOGICAL: No focal deficit. Normal speech. gait not observed. PSYCHIATRIC: Cooperative. Good eye contact. Appropriate mood and affect. SKIN: Warm, dry, Laboratory Results - last 24 hr 05/27/19 05/27/19 05/27/19 06:50 06:50 15:00 WBC 10.1 H 11.1 H RBC 4.11 4.01 Hgb 12.8 12.4 Hct 38.7 37.2 MCV 94.3 92.9 MCH 31.3 30.9 MCHC 33.2 33.3 RDW 13.5 13.2 Plt Count 68 L D 287 D MPV 10.3 D 8.6 D Absolute Neuts (auto) 9.6 H 10.6 H Total Counted 100 Neutrophils % 94.8 H 95.5 H Neutrophils % (Manual) 96.2 H 98.0 H Band Neutrophils % 0.0 0.0 Lymphocytes % 2.4 L D 2.4 L Lymphocytes % (Manual) 0.9 L 0.0 L Monocytes % 2.1 L 2.1 L Monocytes % (Manual) 3 L D 1 L Eosinophils % 0.1 D 0.0 D Eosinophils % (Manual) 0.0 0.0 Basophils % 0.6 0.0 Basophils % (Manual) 0.0 0.0 Myelocytes % (Man) 0 Promyelocytes % (Man) 0 Blast Cells % (Manual) 0 Nucleated RBC % 0 0 Metamyelocytes 0 Hypochromia 0 1+ Platelet Estimate Decreased Adequate Platelet Comment No clumping noted Polychromasia 0 Poikilocytosis 0 Anisocytosis 0 Microcytosis 0 Macrocytosis 0 Sodium 139 Potassium 4.8 Chloride 111 H Carbon Dioxide 20 L Anion Gap No Result Required. BUN 40.8 H Creatinine 1.1 Est GFR (CKD-EPI)AfAm 75.71 Est GFR (CKD-EPI)NonAf 65.32 Random Glucose 150 H Calcium 8.1 L Total Bilirubin 0.3 AST 25 ALT 27 Alkaline Phosphatase 67 Total Protein 5.9 L Albumin 2.9 L Active Medications Generic Name Dose Route Start Last Admin Trade Name Freq PRN Reason Stop Dose Admin Albuterol/Ipratropium 1 amp 05/24/19 16:00 05/27/19 20:17 Duoneb - NEB 1 amp RQID NANCY Administration Amlodipine Besylate 10 mg 05/25/19 10:00 05/27/19 09:24 Norvasc - PO 10 mg DAILY [facility] Administration Budesonide/Formoterol Fumarate 2 puff 05/24/19 22:00 05/27/19 21:00 Symbicort 160/4.5mcg - IH 2 puff BID NANCY Administration Cyclobenzaprine HCl 5 mg 05/25/19 14:03 05/27/19 10:31 Flexeril - PO 5 mg TID PRN Administration MUSCLE SPASMS Fluticasone Propionate 2 spray 05/27/19 13:45 05/27/19 16:08 Flonase - NS 2 spray DAILY NANCY Administration Latanoprost 1 drop 05/25/19 22:00 05/27/19 21:00 Xalatan 0.005% Eye Drops - OU 1 drop HS NANCY Administration Lisinopril 10 mg 05/25/19 10:00 05/27/19 09:24 Prinivil PO 10 mg DAILY N[facility] Administration Methylprednisolone Sodium Succinate 40 mg 05/26/19 10:00 05/28/19 01:21 Solu-Medrol - IVPUSH 40 mg Q8H-IV N[facility] Administration Pantoprazole Sodium 20 mg 05/27/19 10:00 05/27/19 09:24 Protonix - PO 20 mg DAILY NANCY Administration Sodium Chloride 2 spray 05/27/19 13:30 05/27/19 21:01 [place] Nasal [place] - NS 2 spray TID PRN Administration NASAL CONGESTION Timolol Maleate 1 drop 05/24/19 22:00 05/27/19 21:00 Timoptic 0.25% OU 1 drop BID NANCY Administration CBC, BMP 05/28/19 07:17 05/28/19 07:17 ASSESSMENT/PLAN: This is a 73 year old man with a history of HTN, COPD, glaucoma who presented to the ED with SOB. # COPD exacerbation * o2 supplement maintain O2 sat > 89-92 % * Bronchodilatos , * abx prophylaxis completed * Sulomedrol 40 Q 8hr taper from Q 6hr and today BID * pulmonary consulted add fluticasone , nasal spray and Humidify o2 # thrombocytopenia DC Azithromycin S.P 3 days and DC lovenox send Serotnin release assay to R.O HIT no active bleeding , monitor cbc daily # HTN * cont lisinopril 10 mg PO daily and norvasc 10 mg daily # Glaucoma , stable cont timolol eye drop , and latanoprost # DVT proph out of bed , scds when in bed # GI prophylaxis while on Steroids # muscle spasm on Flexeril 5mg TID PRN # History of umbilical hernia repair , follow up out pt # Homless need social placement upon dc # Dispo M/S Visit type - Emergency Visit Emergency Visit: Yes ED Registration Date: 05/24/19 Care time: The patient presented to the Emergency Department on the above date and was hospitalized for further evaluation of their emergent condition. - New Patient This patient is new to me today: No - Critical Care Critical Care patient: No - Discharge Referral [facility]erred to [facility] Med [facility] No ATTENDING PHYSICIAN STATEMENT I saw and evaluated the patient. I reviewed the resident's note and discussed the case with the resident. I agree with the resident's findings and plan as documented. SUBJECTIVE: OBJECTIVE: ASSESSMENT AND PLAN:
[2019-05-28] MEDS: ALBUTEROL SO4 2.5/IPRATROPIUM 0.5 INH SOL 3 ML VIAL.NEB. NEB SCH ×4 (07:20→20:39)
[2019-05-28 08:25] LABS: HEMATOCRIT 36.5 % (35.4-49); HEMOGLOBIN 12.4 GM/dL (11.7-16.9); LYMPH % 2.8 % (8-40); MCH 31.2 pg (25.7-33.7); MEAN CELL VOLUME 91.6 fl (80-96); MEAN PLT VOLUME 8.6 fl (7.5-11.1); MONO % 2.1 % (3.8-10.2); NEUT % 95.1 % (42.8-82.8); PLATELET COUNT 270 K/MM3 (134-434); RBC 3.98 M/mm3 (4.00-5.60); RDW 13.6 % (11.9-15.9); WHITE BLOOD COUNT 9.5 K/mm3 (4.0-10.0)
[2019-05-28 09:25] LABS: BILIRUBIN,TOTAL 0.9 mg/dL (0.2-1); BLOOD UREA NITROGEN 39.7 mg/dL (7-18); CALCIUM 8.2 mg/dL (8.5-10.1); CREATININE 1.1 mg/dL (0.55-1.3); POTASSIUM 4.5 mmol/L (3.5-5.1); TOT PROT 5.8 g/dl (6.4-8.2)
[2019-05-28] MEDS: PANTOPRAZOLE 20 MG TABLET PO SCH (09:59)
[2019-05-28] MEDS: LISINOPRIL 10 MG TABLET (FP) PO SCH (09:59)
[2019-05-28] MEDS: amLODIPine BESYLATE 10 MG TABLET (FP) PO SCH (09:59)
[2019-05-28] MEDS: SODIUM CHLORIDE NASAL SPRAY 44 ML BOTTLE NS PRN (10:00)
[2019-05-28] MEDS: BUDESONIDE/FORMETEROL FUMARATE 160/4.5 mcg INHALER IH SCH ×2 (10:00→21:22)
[2019-05-28] MEDS: FLUTICASONE PROP 0.05% 16 GM NASAL SPRAY NS SCH (10:00)
[2019-05-28] MEDS: TIMOLOL 0.25% OPHTHALMIC SOL 5 ML BOTTLE OU SCH ×2 (10:01→21:22)
[2019-05-28 11:41] LABS: ANISOCYTOSIS 1+; MACROCYTOSIS 0; PLATELET ESTIMATE NORMAL
--- NOTE | 2019-05-28 12:22 | RAPID ---
Physical Examination Vital Signs: Vital Signs Temperature 97.7 F 05/28/19 09:00 Pulse Rate 104 H 05/28/19 10:26 Respiratory Rate 20 05/28/19 09:00 Blood Pressure 134/69 05/28/19 09:00 O2 Sat by Pulse Oximetry (%) 96 05/28/19 10:26 Rapid response called. Reported to bedside and patient was choking while eating chicken. Heimlech maneuver performed and choking has stopped. VS: 175/84, 80%O2, 126 HR PE:General: food residue in mouth Lungs- Decreased air movement on right side, wheezes #Choking episode/Aspiration Plan: Stat CXR to r/o aspiration O2 satting well on 3L after heimlech Hx of COPD- will continue O2, Chest PT and steroids, abx primary team to follow up cxr Labs: CBC, BMP 05/28/19 07:17 05/28/19 07:17
--- NOTE | 2019-05-28 12:33 | PN ---
Progress Note (short form) - Note Progress Note: Reports breathing feels a little better. Nasal congestion better (chronic). No acute events overnight. Intake & Output 05/25/19 05/26/19 05/27/19 05/28/19 23:59 23:59 23:59 23:59 Intake Total 500 1480 1000 100 Output Total 100 0 Balance 400 1480 1000 100 Last Vital Signs Temp Pulse Resp BP Pulse Ox 97.7 F 104 H 20 134/69 96 05/28/19 09:00 05/28/19 10:26 05/28/19 09:00 05/28/19 09:00 05/28/19 10:26 Active Medications Albuterol/Ipratropium (Duoneb -) 1 amp NEB RQID [facility] Last Admin: 05/28/19 11:37 Dose: 1 amp Amlodipine Besylate (Norvasc -) 10 mg PO DAILY [facility] Last Admin: 05/28/19 09:59 Dose: 10 mg Budesonide/Formoterol Fumarate (Symbicort 160/4.5mcg -) 2 puff IH BID [facility] Last Admin: 05/28/19 10:00 Dose: 2 puff Cyclobenzaprine HCl (Flexeril -) 5 mg PO TID PRN PRN Reason: MUSCLE SPASMS Last Admin: 05/27/19 10:31 Dose: 5 mg Fluticasone Propionate (Flonase -) 2 spray NS DAILY [facility] Last Admin: 05/28/19 10:00 Dose: 2 spray Latanoprost (Xalatan 0.005% Eye Drops -) 1 drop OU HS [facility] Last Admin: 05/27/19 21:00 Dose: 1 drop Lisinopril (Prinivil) 10 mg PO DAILY [facility] Last Admin: 05/28/19 09:59 Dose: 10 mg Methylprednisolone Sodium Succinate (Solu-Medrol -) 40 mg IVPUSH BID [facility] Last Admin: 05/28/19 10:07 Dose: 40 mg Pantoprazole Sodium (Protonix -) 20 mg PO DAILY [facility] Last Admin: 05/28/19 09:59 Dose: 20 mg Sodium Chloride ([place] -) 2 spray NS TID PRN PRN Reason: NASAL CONGESTION Last Admin: 05/28/19 10:00 Dose: 2 spray Timolol Maleate (Timoptic 0.25%) 1 drop OU BID [facility] Last Admin: 02/13/20 10:01 Dose: 1 drop Constitutional: Yes: NAD Eyes: Yes: EOM Intact HENT: Yes: Normocephalic Neck: Yes: Trachea Midline Cardiovascular: Yes: S1, S2 Respiratory: Yes: Improving scattered Expiratory Wheeze and rhonchi Gastrointestinal: Yes: Normal Bowel Sounds Edema: No Neurological: Yes: Alert Labs: Laboratory Results - last 24 hr 05/27/19 05/28/19 05/28/19 15:00 07:17 07:17 WBC 11.1 H 9.5 RBC 4.01 3.98 L Hgb 12.4 12.4 Hct 37.2 36.5 MCV 92.9 91.6 MCH 30.9 31.2 MCHC 33.3 34.0 RDW 13.2 13.6 Plt Count 287 D 270 MPV 8.6 D 8.6 Absolute Neuts (auto) 10.6 H 9.0 H Total Counted 100 Neutrophils % 95.5 H 95.1 H Neutrophils % (Manual) 98.0 H 90.8 H Band Neutrophils % 0.0 2.0 Lymphocytes % 2.4 L 2.8 L Lymphocytes % (Manual) 0.0 L 3.1 L D Monocytes % 2.1 L 2.1 L Monocytes % (Manual) 1 L 3 L D Eosinophils % 0.0 D 0.0 Eosinophils % (Manual) 0.0 0.0 Basophils % 0.0 0.0 Basophils % (Manual) 0.0 0.0 Myelocytes % (Man) 0 Promyelocytes % (Man) 0 Blast Cells % (Manual) 0 Nucleated RBC % 0 0 Metamyelocytes 1 D Hypochromia 1+ 0 Platelet Estimate Adequate Normal Platelet Comment No clumping noted Present Polychromasia 0 Poikilocytosis 0 Anisocytosis 1+ Microcytosis 0 Macrocytosis 0 Sodium 139 Potassium 4.5 Chloride 109 H Carbon Dioxide 22 Anion Gap 8 BUN 39.7 H Creatinine 1.1 Est GFR (CKD-EPI)AfAm 75.71 Est GFR (CKD-EPI)NonAf 65.32 Random Glucose 139 H Calcium 8.2 L Total Bilirubin 0.9 AST 14 L ALT 26 Alkaline Phosphatase 64 Total Protein 5.8 L Albumin 3.0 L Problem List - Problems (1) COPD exacerbation Code(s): J44.1 - CHRONIC OBSTRUCTIVE PULMONARY DISEASE W (ACUTE) EXACERBATION (2) Glaucoma Code(s): H40.9 - UNSPECIFIED GLAUCOMA (3) HTN (hypertension) Code(s): I10 - ESSENTIAL (PRIMARY) HYPERTENSION (4) Homeless Code(s): Z59.0 - HOMELESSNESS Assessment/Plan NASAL SALINE AND FLUTICASONE HUMIDIFY O2 NO SMOKING O2 SUPPLEMENTATION BRONCHODILATORS IV STEROIDS MONITOR OFF ANTIBIOTICS DVT PROPHYLAXIS Dr Sawyer
[2019-05-28] MEDS ORDERED: MAG HYDROX/AL HYDROX/SIMETH 30 ML UNIT-DOSE CUP PO PRN (12:43)
--- NOTE | 2019-05-28 15:30 | CONSULT ---
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 No: AFIB Pulmonary: Yes: Asthma, COPD. No: Previously Intubated ENT: Yes: Sinusitis, Other (GLAUCOMA) - Past Surgical History Past Surgical History: Yes: Appendectomy - Smoking History Smoking history: Never smoked Have you smoked in the past 12 months: No Aproximately how many cigarettes per day: 0 - Alcohol/Substance Use Hx Alcohol Use: No - Social History ADL: Support Services History of Recent Travel: No History - Admission Reason For Visit: ACUTE EXACERBATION OF CHRONIC OBSTRUCTIVE Speech Evaluation - Communication Primary Language: AUSTRIAN Communication: Yes: Within Normal Limits Oral Expression Ability: Yes: No Impairment - Speech Production Apraxia: No Able to Make Needs Known: Yes: WNL Intelligibility: Yes: WNL - Speech Characteristics Voice Loudness: Moderately Soft/Quiet (secondary to COPD), Limited Variation Voice Pitch: Yes: Limited Variation Voice Phonatory-based Quality: Yes: Normal Speech Pattern: Normal Nasal Resonance: Normal Articulation: Yes: Precise Dysfluency: Yes: Tonic Rate of Speech: Intact Voice Comment: Reduced characterized as breathy (reduced intensity and pitch - Language/Auditory Comprehension Follows: Yes: 1 Stage Simple Commands (WFL), 2 Stage Simple Commands (WFL) Observation: Able to respond to yes/no queries: Yes, Yes/No Confusion: No, Comprehends Conversational Speech: Yes, Benefits from Slow Speech: No, Benefits from Repetiton: No, Benefits from Increased Volume of Speech: No - Language/Verbal Expression Able to Respond to Simple Queries: Yes: WNL Able to Communicate Wants and Needs: Yes: WNL Functional Communication Status: Yes: WNL Aware of Errors: Yes Use of Gestures: No Written Expression: not examined Oral Expression: WFL Reading Comprehension: not examined Calculations: not examined Attention: Yes: Intact - Memory/Perception residential Memory: Yes: WNL Short Term Memory: Yes: WNL - Swallow Evaluation/Bedside Assessment Oral Secretions: Yes: Dryness Tracheostomy Present: No Patient on Ventilator: No Dentition: Yes: Adequate Facial Symmetry at Rest: Symmetrical Facial Symmetry on Retraction: Symmetrical Facial Movement: Controlled Facial Comment: WFL for speech and swallowing purposes Jaw Position: Closed at Rest Against Resistance Opening: Normal Against Resistance Closing: Normal Pucker Lips: Normal Smile: Normal Lips, Comment: WFL for speech and swallowing purposes Lingual Movement: Normal Lingual Speed of Movement: Normal Lingual Movement Strgth Against Opposition: Normal Lingual Movement Characteristics: Normal Lingual Comment: WFL for speech and swallowing purposes Soft Palate Description: Normal Color Hard Palate Description: Normal Color Gag Reflex: Strong Bite Reflex: Present Velopharyngeal Movement: Normal Laryngeal Elevation: WFL Laryngeal Movement: Able to Palpate Needs Assistance: No Rate of Intake: WFL Bolus Size: WFL Labial Seal: WFL Chewing: WFL Oral Prep Time: WFL A-P Transit: WFL Timing of Swallow: WFL Coughing/Throat Clear: No Change in Voice: No Other Findings/Remarks: 73 yo male seen at bedside for swallow eval to r/o dysphagia. Pt is verbal A& Ox3 cooperative. Pt has a serious choking incident at lunch this afternoon eating chicken. PMHx of COPD (on Atrovent) and HTN. Admitted [facility] for shortness of breath. Pt given PO trials of pureed, mechanical soft solids, regular solids without assistance revealed, adequate bolus formation and A P transport with a timely pharyngeal swallow (1-2 second average). No change in voicing or respiration after the swallow. Thin liquid trials via cup and straw were unremarkable for dysphagia and / or aspiration at this time. Recommendations - Speech Evaluation, Impression/Plan Impression: The oral and pharyngeal swallow is adequate for po intake of pureed and regular solids and thin liquids. Labial containment, mastication, bolus transport, and initiation of swallow were WNL. No coughing or changes in voicing to suggest penetration / aspiration at bedside at this time. Choking incident appears to be an isolated episode. Pt recalled the chicken to be "dry and tough." SUBSTANCE ABUSE NURSE encouraged pt to cut foods into smaller pieces and thoroughly chewing before swallowing. Nursing Home Goals: Tolerate the least restrictive solid and liquid consistencies without s/s of penetration / aspiration. Short Term Goals: Tolerate purees, regular solid and thin liquid consistencies without s/s of penetration / aspiration. Recommended Frequency for Therapy: Follow Up PRN - Dysphagia Impressions/Plan Swallowing Skills: Impaired Dysphagia Impressions: Minimal Impairment, Risk of Aspiration *Silent aspiration: cannot be R/O at bedside Dysphagia Treatment Plan: Small Bites, Safe Rate, 1/2 tsp. at a time, Elevate HOB during feed, OOB for meals, Other (alternate liquids with every 2-3 bites of solids.) Dysphagia Evaluation Summary: Continue regular solids with thin liquids as tolerated. Observe standard aspiration precautions. Verbal prompts and / or reminders to completed compensatory strategy to prepare food in small bite sized pieces, chew thorougly. . Provide oral care before and after meal meals. Results given verbally to scrap charger and PCP via chart. SUBSTANCE ABUSE NURSE to follow up for diet tolerance. - Recommendations Diet Consistency: Regular Medication Administration: Whole with water Liquids: Thin Liquids
--- NOTE | 2019-05-28 18:03 | PN ---
Teaching Attending Note Name of Resident: Real Carballo ATTENDING PHYSICIAN STATEMENT I saw and evaluated the patient. I reviewed the resident's note and discussed the case with the resident. I agree with the resident's findings and plan as documented. SUBJECTIVE: Patient examined at bedside, endorses breathing slightly improved, had choking incident today due to dried out chicken now better, no signs of aspiration, speech and swallow cleared for regular diet, otherwise VSS. GENERAL: AAOx3 in NAD, speaking in full sentences HEAD: NC/AT EYES: EOMI, Conjunctiva clear, sclera anicteric ENT: moist mucous membrane NECK: Supple, no JVD LUNGS: CTAB, no significant wheezing HEART: RRR, NSR, normal s1, s2, murmur no M/R/G ABDOMEN: obese Soft, ND, NT, +BS 4 Q, no CVA Tenderness, surgical scar and hernia ahsan umbilical LOWER EXTREMITIES: no edema, +2DP pulse, NEUROLOGICAL: No focal deficit. Normal speech. gait not observed. PSYCHIATRIC: Cooperative. Good eye contact. Appropriate mood and affect. SKIN: Warm, dry. Vital Signs - 24 hr 05/27/19 05/28/19 05/28/19 21:00 01:00 05:00 Temperature 98.4 F 98 F 98 F Pulse Rate 90 94 H 86 Respiratory 19 19 19 Rate Blood Pressure 120/74 123/72 120/53 L O2 Sat by Pulse 95 Oximetry (%) 05/28/19 05/28/19 05/28/19 09:00 10:26 14:36 Temperature 97.7 F 97.5 F L Pulse Rate 86 104 H 94 H Respiratory 20 20 Rate Blood Pressure 134/69 139/72 O2 Sat by Pulse 94 L 96 Oximetry (%) Laboratory Results - last 24 hr 05/28/19 05/28/19 07:17 07:17 WBC 9.5 RBC 3.98 L Hgb 12.4 Hct 36.5 MCV 91.6 MCH 31.2 MCHC 34.0 RDW 13.6 Plt Count 270 MPV 8.6 Absolute Neuts (auto) 9.0 H Neutrophils % 95.1 H Neutrophils % (Manual) 90.8 H Band Neutrophils % 2.0 Lymphocytes % 2.8 L Lymphocytes % (Manual) 3.1 L D Monocytes % 2.1 L Monocytes % (Manual) 3 L D Eosinophils % 0.0 Eosinophils % (Manual) 0.0 Basophils % 0.0 Basophils % (Manual) 0.0 Myelocytes % (Man) 0 Promyelocytes % (Man) 0 Blast Cells % (Manual) 0 Nucleated RBC % 0 Metamyelocytes 1 D Hypochromia 0 Platelet Estimate Normal Platelet Comment Present Polychromasia 0 Poikilocytosis 0 Anisocytosis 1+ Microcytosis 0 Macrocytosis 0 Sodium 139 Potassium 4.5 Chloride 109 H Carbon Dioxide 22 Anion Gap 8 BUN 39.7 H Creatinine 1.1 Est GFR (CKD-EPI)AfAm 75.71 Est GFR (CKD-EPI)NonAf 65.32 Random Glucose 139 H Calcium 8.2 L Total Bilirubin 0.9 AST 14 L ALT 26 Alkaline Phosphatase 64 Total Protein 5.8 L Albumin 3.0 L Home Medications Medication Instructions Recorded Latanoprost 0.005% Eye Drops 1 drop OU BID 10/18/18 [Xalatan 0.005% Eye Drops -] Timolol Maleate 1 drop OU BID 10/18/18 Albuterol 0.083% Nebulizer Shyanne 1 amp NEB Q6H #1 box 11/13/18 [Ventolin 0.083% Nebulizer Soln -] Albuterol Sulfate Inhaler - 1 puff IH PRN PRN #1 inhaler 11/13/18 [Ventolin HFA Inhaler -] Amlodipine Besylate [Norvasc -] 10 mg PO DAILY #30 tablet 11/13/18 Budesonide/Formeterol Fumarate 2 puff IH BID #1 inhaler 11/13/18 [SYMBICORT 160/4.5mcg -] Fluticasone Prop 0.05% Nasal 1 - 2 spray NS BID #1 spray.pump 11/13/18 [Flonase -] Fluticasone Prop 0.05% Nasal 2 spray NS DAILY 30 Days spray 11/13/18 [Flonase -] Guaifenesin AC [Robitussin AC -] 10 ml PO Q8H PRN ud MDD 40 ml 11/13/18 Guaifenesin AC [Robitussin AC] 10 ml PO Q8H 5 Days ud MDD 40 ml 11/13/18 Guaifenesin [Robitussin] 10 ml PO PRN 10 Days #1 cup 11/13/18 Lisinopril [Prinivil] 10 mg PO DAILY #30 tablet 11/13/18 Nebulizer Accessories [Adult 1 each MC Q6H #1 each 11/13/18 Aerosol Mask] Nebulizer [Aeroeclipse II] 1 each MC Q6H #1 each 11/13/18 Pantoprazole Sodium [Protonix -] 40 mg PO DAILY #30 tablet.ec 11/13/18 Prednisone 10 mg PO ASDIR #20 tablet 11/13/18 Tiotropium [place] [Spiriva 2 puff IH DAILY #1 inhaler 11/13/18 Respimat] Current Medications Generic Name Dose Route Start Last Admin Trade Name Freq PRN Reason Stop Dose Admin Al Hydroxide/Mg Hydroxide 30 ml 05/28/19 12:43 05/28/19 14:22 Mylanta Oral Suspension - PO 30 ml Q6H PRN Administration DYSPEPSIA Albuterol/Ipratropium 1 amp 05/24/19 16:00 05/28/19 16:43 Duoneb - NEB 1 amp RQID NANCY Administration Amlodipine Besylate 10 mg 05/25/19 10:00 05/28/19 09:59 Norvasc - PO 10 mg DAILY NANCY Administration Budesonide/Formoterol Fumarate 2 puff 05/24/19 22:00 05/28/19 10:00 Symbicort 160/4.5mcg - IH 2 puff BID NANCY Administration Fluticasone Propionate 2 spray 05/27/19 13:45 05/28/19 10:00 Flonase - NS 2 spray DAILY NANCY Administration Latanoprost 1 drop 05/25/19 22:00 05/27/19 21:00 Xalatan 0.005% Eye Drops - OU 1 drop HS NANCY Administration Lisinopril 10 mg 05/25/19 10:00 05/28/19 09:59 Prinivil PO 10 mg DAILY NANCY Administration Methylprednisolone Sodium Succinate 40 mg 05/28/19 10:00 05/28/19 10:07 Solu-Medrol - IVPUSH 40 mg BID NANCY Administration Pantoprazole Sodium 20 mg 05/27/19 10:00 05/28/19 09:59 Protonix - PO 20 mg DAILY NANCY Administration Sodium Chloride 2 spray 05/27/19 13:30 05/28/19 10:00 [place] Nasal [place] - NS 2 spray TID PRN Administration NASAL CONGESTION Timolol Maleate 1 drop 05/24/19 22:00 05/28/19 10:01 Timoptic 0.25% OU 1 drop BID NANCY Administration A/P: 73 year old man with a history of HTN, COPD, glaucoma admitted for COPD exacerbation. COPD exacerbation Slightly improved o2 supplement maintain O2 sat > 89-92 % Cont. bronchodilators, IV steroids, nasal saline, nasal fluticasone, pulmonary toileting Abx course completed Pulmonary consult: Dr Sawyer Thrombocytopenia repeat normal, likely lab error, no signs of thrombocytopenia cont. to monitor, SCD w/ ambulation for DVT ppx Choking incident pt. reports choking on dried piece of chicken Speech and swallow evaluated patient, deemed to have normal swallowing mechanics , reusme regular diet advised patient to chew food, drink water with meals, avoid swallowing large/ dry pieces HTN cont lisinopril 10 mg PO daily and norvasc 10 mg daily Glaucoma , stable cont. eye drops DVT ppx: SCD Med-surg
[2019-05-28] MEDS: LATANOPROST 0.005% OPHTH SOLN 2.5ML BOTTLE OU SCH (21:22)
--- NOTE | 2019-05-29 06:34 | PN ---
Physical Exam: SUBJECTIVE: Patient seen and examined completed 3 days course of azithromycin pre and post today work on placement switch streoids to prednisone PO 40 mg daily dc home tomorrow OBJECTIVE: Vital Signs Period Temp Pulse Resp BP Sys/Ferreira Pulse Ox Last 24 Hr 97.5 F-98.0 F 86-104 20-20 119-139/54-72 93-96 GENERAL: AAOx3 in NAD HEAD: NC/AT EYES: EOMI, Conjunctiva clear, sclera anicteric ENT: moist mucous membrane NECK: Supple, no JVD LUNGS: CTA B/L no wheezes HEART: RRR, NSR, normal s1, s2, murmur no M/R/G ABDOMEN: obese Soft, ND, NT, +BS 4 Q, no CVA Tenderness, surgical scar and hernia ahsan umbilical LOWER EXTREMITIES: no edema, +2DP pulse, NEUROLOGICAL: No focal deficit. Normal speech. gait not observed. PSYCHIATRIC: Cooperative. Good eye contact. Appropriate mood and affect. SKIN: Warm, dry, Laboratory Results - last 24 hr 05/28/19 05/28/19 07:17 07:17 WBC 9.5 RBC 3.98 L Hgb 12.4 Hct 36.5 MCV 91.6 MCH 31.2 MCHC 34.0 RDW 13.6 Plt Count 270 MPV 8.6 Absolute Neuts (auto) 9.0 H Neutrophils % 95.1 H Neutrophils % (Manual) 90.8 H Band Neutrophils % 2.0 Lymphocytes % 2.8 L Lymphocytes % (Manual) 3.1 L D Monocytes % 2.1 L Monocytes % (Manual) 3 L D Eosinophils % 0.0 Eosinophils % (Manual) 0.0 Basophils % 0.0 Basophils % (Manual) 0.0 Myelocytes % (Man) 0 Promyelocytes % (Man) 0 Blast Cells % (Manual) 0 Nucleated RBC % 0 Metamyelocytes 1 D Hypochromia 0 Platelet Estimate Normal Platelet Comment Present Polychromasia 0 Poikilocytosis 0 Anisocytosis 1+ Microcytosis 0 Macrocytosis 0 Sodium 139 Potassium 4.5 Chloride 109 H Carbon Dioxide 22 Anion Gap 8 BUN 39.7 H Creatinine 1.1 Est GFR (CKD-EPI)AfAm 75.71 Est GFR (CKD-EPI)NonAf 65.32 Random Glucose 139 H Calcium 8.2 L Total Bilirubin 0.9 AST 14 L ALT 26 Alkaline Phosphatase 64 Total Protein 5.8 L Albumin 3.0 L Active Medications Generic Name Dose Route Start Last Admin Trade Name Freq PRN Reason Stop Dose Admin Al Hydroxide/Mg Hydroxide 30 ml 05/28/19 12:43 05/28/19 14:22 Mylanta Oral Suspension - PO 30 ml Q6H PRN Administration DYSPEPSIA Albuterol/Ipratropium 1 amp 05/24/19 16:00 05/28/19 20:39 Duoneb - NEB 1 amp RQID NANCY Administration Amlodipine Besylate 10 mg 05/25/19 10:00 05/28/19 09:59 Norvasc - PO 10 mg DAILY NANCY Administration Budesonide/Formoterol Fumarate 2 puff 05/24/19 22:00 05/28/19 21:22 Symbicort 160/4.5mcg - IH 2 puff BID NANCY Administration Fluticasone Propionate 2 spray 05/27/19 13:45 05/28/19 10:00 Flonase - NS 2 spray DAILY NANCY Administration Latanoprost 1 drop 05/25/19 22:00 05/28/19 21:22 Xalatan 0.005% Eye Drops - OU 1 drop HS NANCY Administration Lisinopril 10 mg 05/25/19 10:00 05/28/19 09:59 Prinivil PO 10 mg DAILY NANCY Administration Methylprednisolone Sodium Succinate 40 mg 05/28/19 10:00 05/28/19 21:22 Solu-Medrol - IVPUSH 40 mg BID NANCY Administration Pantoprazole Sodium 20 mg 05/27/19 10:00 05/28/19 09:59 Protonix - PO 20 mg DAILY NANCY Administration Sodium Chloride 2 spray 05/27/19 13:30 05/28/19 10:00 [place] Nasal [place] - NS 2 spray TID PRN Administration NASAL CONGESTION Timolol Maleate 1 drop 05/24/19 22:00 05/28/19 21:22 Timoptic 0.25% OU 1 drop BID NANCY Administration CBC, BMP 05/29/19 06:55 05/29/19 06:55 ASSESSMENT/PLAN: This is a 73 year old man with a history of HTN, COPD, glaucoma who presented to the ED with SOB. # COPD exacerbation * o2 supplement maintain O2 sat > 89-92 % * Bronchodilatos , * abx prophylaxis completed * Sulomedrol 40 Q 8hr taper from Q 6hr and today BID switch to prednisone 40 po daily nd taper as out pt * pulmonary consulted add fluticasone , nasal spray and Humidify o2 # thrombocytopenia DC Azithromycin S.P 3 days and DC lovenox send Serotnin release assay to [facility] no active bleeding , monitor cbc daily # HTN * cont lisinopril 10 mg PO daily and norvasc 10 mg daily # Glaucoma , stable cont timolol eye drop , and latanoprost # DVT proph out of bed , scds when in bed # GI prophylaxis while on Steroids # muscle spasm on Flexeril 5mg TID PRN # History of umbilical hernia repair , follow up out pt # Dispo M/S dc home tomorrow Visit type - Emergency Visit Emergency Visit: Yes ED Registration Date: 05/24/19 Care time: The patient presented to the Emergency Department on the above date and was hospitalized for further evaluation of their emergent condition. - New Patient This patient is new to me today: No - Critical Care Critical Care patient: No - Discharge Referral Referred to [facility] Med P.C.: No ATTENDING PHYSICIAN STATEMENT I saw and evaluated the patient. I reviewed the resident's note and discussed the case with the resident. I agree with the resident's findings and plan as documented. SUBJECTIVE: OBJECTIVE: ASSESSMENT AND PLAN:
[2019-05-29 07:23] LABS: BASO % 0.2 % (0-2.0); HEMATOCRIT 38.1 % (35.4-49); HEMOGLOBIN 13.1 GM/dL (11.7-16.9); LYMPH % 3.3 % (8-40); MCH 31.6 pg (25.7-33.7); MCHC 34.5 g/dl (32.0-35.9); MEAN CELL VOLUME 91.7 fl (80-96); MEAN PLT VOLUME 8.5 fl (7.5-11.1); NEUT % 93.5 % (42.8-82.8); PLATELET COUNT 256 K/MM3 (134-434); RBC 4.16 M/mm3 (4.00-5.60); RDW 13.1 % (11.9-15.9); WHITE BLOOD COUNT 9.8 K/mm3 (4.0-10.0)
[2019-05-29 07:38] LABS: BLOOD UREA NITROGEN 36.1 mg/dL (7-18); CALCIUM 7.7 mg/dL (8.5-10.1); CREATININE 1.1 mg/dL (0.55-1.3); POTASSIUM 4.8 mmol/L (3.5-5.1)
[2019-05-29] MEDS: ALBUTEROL SO4 2.5/IPRATROPIUM 0.5 INH SOL 3 ML VIAL.NEB. NEB SCH ×4 (07:40→20:15)
[2019-05-29] MEDS: methylPREDNISolone NA SUCC 40 MG/1 ML VIAL IVPUSH SCH (09:16)
[2019-05-29] MEDS: FLUTICASONE PROP 0.05% 16 GM NASAL SPRAY NS SCH (09:21)
[2019-05-29] MEDS: SODIUM CHLORIDE NASAL SPRAY 44 ML BOTTLE NS PRN ×2 (09:22→21:49)
[2019-05-29] MEDS: LISINOPRIL 10 MG TABLET (FP) PO SCH (09:23)
[2019-05-29] MEDS: PANTOPRAZOLE 20 MG TABLET PO SCH (09:23)
[2019-05-29] MEDS: amLODIPine BESYLATE 10 MG TABLET (FP) PO SCH (09:23)
[2019-05-29] MEDS: TIMOLOL 0.25% OPHTHALMIC SOL 5 ML BOTTLE OU SCH ×2 (09:24→21:48)
[2019-05-29] MEDS: BUDESONIDE/FORMETEROL FUMARATE 160/4.5 mcg INHALER IH SCH ×2 (09:25→21:47)
[2019-05-29 10:13] LABS: ANISOCYTOSIS 1+; MACROCYTOSIS 0; OVALOCYTE 1+; PLATELET ESTIMATE NORMAL
--- NOTE | 2019-05-29 11:20 | PN ---
Progress Note (short form) - Note Progress Note: PULMONARY VSS/AFEBRILE OFFERS NO COMPLAINTS Constitutional: Yes: NAD Eyes: Yes: EOM Intact HENT: Yes: Normocephalic Neck: Yes: Trachea Midline Cardiovascular: Yes: S1, S2 Respiratory: Yes: Improving scattered Expiratory Wheeze and rhonchi Gastrointestinal: Yes: Normal Bowel Sounds Edema: No Neurological: Yes: Alert Labs:noted Problem List reviewed - Problems (1) COPD exacerbation Code(s): J44.1 - CHRONIC OBSTRUCTIVE PULMONARY DISEASE W (ACUTE) EXACERBATION (2) Glaucoma Code(s): H40.9 - UNSPECIFIED GLAUCOMA (3) HTN (hypertension) Code(s): I10 - ESSENTIAL (PRIMARY) HYPERTENSION (4) Homeless Code(s): Z59.0 - HOMELESSNESS Assessment/Plan CHANGED MEDROL TO PREDNISONE NO SMOKING NO OBJECTION TO DISCHARGE PLANNING BRONCHODILATORS DVT PROPHYLAXIS WHILE IN HOSPITAL SPO2 PRE/POST DOES NOT QUALIFY FOR O2 R BARBER BARRIOS Problem List - Problems (1) COPD exacerbation Code(s): J44.1 - CHRONIC OBSTRUCTIVE PULMONARY DISEASE W (ACUTE) EXACERBATION (2) Glaucoma Code(s): H40.9 - UNSPECIFIED GLAUCOMA (3) HTN (hypertension) Code(s): I10 - ESSENTIAL (PRIMARY) HYPERTENSION (4) Homeless Code(s): Z59.0 - HOMELESSNESS
[2019-05-29] MEDS: predniSONE 20 MG TABLET (UD) PO SCH (11:37)
[2019-05-29] MEDS ORDERED: LOPERAMIDE HCL 2 MG CAPSULE PO ONE (17:16)
--- NOTE | 2019-05-29 18:21 | PN ---
Teaching Attending Note Name of Resident: Real Carballo ATTENDING PHYSICIAN STATEMENT I saw and evaluated the patient. I reviewed the resident's note and discussed the case with the resident. I agree with the resident's findings and plan as documented. SUBJECTIVE: Patient examined at bedside, breathing much improved, ambulating around unit. Does not want to go home today, VS otherwise stable, cleared by pulmonary for DC home, wants to go home tomorrow. GENERAL: AAOx3 in NAD, speaking in full sentences, ambulating around unit HEAD: NC/AT EYES: EOMI, Conjunctiva clear, sclera anicteric ENT: moist mucous membrane NECK: Supple, no JVD LUNGS: CTAB, no significant wheezing HEART: RRR, NSR, normal s1, s2, murmur no M/R/G ABDOMEN: obese Soft, ND, NT, +BS 4 Q, no CVA Tenderness, surgical scar and hernia ahsan umbilical LOWER EXTREMITIES: no edema, +2DP pulse, NEUROLOGICAL: No focal deficit. Normal speech. gait not observed. PSYCHIATRIC: Cooperative. Good eye contact. Appropriate mood and affect. SKIN: Warm, dry. Vital Signs - 24 hr 05/28/19 05/28/19 05/28/19 18:38 21:00 22:00 Temperature 98.0 F Pulse Rate 91 H 86 Respiratory 20 20 20 Rate Blood Pressure 122/60 124/54 L O2 Sat by Pulse 93 L Oximetry (%) 05/29/19 05/29/19 05/29/19 05:54 08:30 10:00 Temperature 97.8 F 98.2 F Pulse Rate 90 97 H Respiratory 20 22 H Rate Blood Pressure 119/68 125/63 O2 Sat by Pulse 94 L 94 L Oximetry (%) 05/29/19 14:25 Temperature 97.8 F Pulse Rate 87 Respiratory 20 Rate Blood Pressure 121/61 O2 Sat by Pulse Oximetry (%) Laboratory Results - last 24 hr 05/29/19 05/29/19 06:55 06:55 WBC 9.8 RBC 4.16 Hgb 13.1 Hct 38.1 MCV 91.7 MCH 31.6 MCHC 34.5 RDW 13.1 Plt Count 256 MPV 8.5 Absolute Neuts (auto) 9.2 H Neutrophils % 93.5 H Neutrophils % (Manual) 92.1 H Band Neutrophils % 0.0 Lymphocytes % 3.3 L Lymphocytes % (Manual) 1.0 L D Monocytes % 3.0 L Monocytes % (Manual) 4 Eosinophils % 0.0 Eosinophils % (Manual) 0.0 Basophils % 0.2 D Basophils % (Manual) 0.0 Myelocytes % (Man) 0 Promyelocytes % (Man) 0 Blast Cells % (Manual) 0 Nucleated RBC % 0 Metamyelocytes 3 H D Hypochromia 0 Platelet Estimate Normal Polychromasia 1+ Poikilocytosis 1+ Anisocytosis 1+ Microcytosis 1+ Macrocytosis 0 Spherocytes 1+ Ovalocytes 1+ [place] Cells 1+ Acanthocytes (Spur) 1+ Sodium 137 Potassium 4.8 Chloride 107 Carbon Dioxide 24 Anion Gap 6 L BUN 36.1 H Creatinine 1.1 Est GFR (CKD-EPI)AfAm 75.71 Est GFR (CKD-EPI)NonAf 65.32 Random Glucose 133 H Calcium 7.7 L Current Medications Generic Name Dose Route Start Last Admin Trade Name Freq PRN Reason Stop Dose Admin Al Hydroxide/Mg Hydroxide 30 ml 05/28/19 12:43 05/28/19 14:22 Mylanta Oral Suspension - PO 30 ml Q6H PRN Administration DYSPEPSIA Albuterol/Ipratropium 1 amp 05/24/19 16:00 05/29/19 15:50 Duoneb - NEB 1 amp RQID NANCY Administration Amlodipine Besylate 10 mg 05/25/19 10:00 05/29/19 09:23 Norvasc - PO 10 mg DAILY NANCY Administration Budesonide/Formoterol Fumarate 2 puff 05/24/19 22:00 05/29/19 09:25 Symbicort 160/4.5mcg - IH 2 puff BID NANCY Administration Fluticasone Propionate 2 spray 05/27/19 13:45 05/29/19 09:21 Flonase - NS 2 spray DAILY NANCY Administration Latanoprost 1 drop 05/25/19 22:00 05/28/19 21:22 Xalatan 0.005% Eye Drops - OU 1 drop HS NANCY Administration Lisinopril 10 mg 05/25/19 10:00 05/29/19 09:23 Prinivil PO 10 mg DAILY NANCY Administration Pantoprazole Sodium 20 mg 05/27/19 10:00 05/29/19 09:23 Protonix - PO 20 mg DAILY NANCY Administration Prednisone 40 mg 05/29/19 11:30 05/29/19 11:37 Deltasone - PO 40 mg DAILY NANCY Administration Sodium Chloride 2 spray 05/27/19 13:30 05/29/19 09:22 [place] Nasal [place] - NS 2 spray TID PRN Administration NASAL CONGESTION Timolol Maleate 1 drop 05/24/19 22:00 05/29/19 09:24 Timoptic 0.25% OU 1 drop BID NANCY Administration A/P: 73 year old man with a history of HTN, COPD, glaucoma admitted for COPD exacerbation. COPD exacerbation improved, CTAB, decrease IV steroids to PO Prednisone o2 supplement maintain O2 sat > 89-92 %, not candidate for home O2 Cont. bronchodilators, nasal saline, nasal fluticasone, pulmonary toileting Abx course completed Pulmonary consult: Dr Sawyer Thrombocytopenia repeat normal, likely lab error, no signs of thrombocytopenia cont. to monitor, SCD w/ ambulation for DVT ppx Choking incident pt. reports choking on dried piece of chicken Speech and swallow evaluated patient, deemed to have normal swallowing mechanics , reusme regular diet advised patient to chew food, drink water with meals, avoid swallowing large/ dry pieces HTN cont lisinopril 10 mg PO daily and norvasc 10 mg daily Glaucoma , stable cont. eye drops DVT ppx: SCD Med-surg 24 hour DC notice
[2019-05-29] MEDS: LATANOPROST 0.005% OPHTH SOLN 2.5ML BOTTLE OU SCH (21:48)
[2019-05-30] MEDS: ALBUTEROL SO4 2.5/IPRATROPIUM 0.5 INH SOL 3 ML VIAL.NEB. NEB SCH ×3 (07:35→15:51)
[2019-05-30] MEDS ORDERED: ALBUTEROL SO4 0.083% IH SOL 2.5 MG/3 ML VIAL.NEB. NEB ONE (08:42)
[2019-05-30] MEDS: FLUTICASONE PROP 0.05% 16 GM NASAL SPRAY NS SCH (09:12)
[2019-05-30] MEDS: SODIUM CHLORIDE NASAL SPRAY 44 ML BOTTLE NS PRN (09:13)
[2019-05-30] MEDS: predniSONE 20 MG TABLET (UD) PO SCH (09:14)
[2019-05-30] MEDS: amLODIPine BESYLATE 10 MG TABLET (FP) PO SCH (09:14)
[2019-05-30] MEDS: LISINOPRIL 10 MG TABLET (FP) PO SCH (09:14)
[2019-05-30] MEDS: PANTOPRAZOLE 20 MG TABLET PO SCH (09:14)
[2019-05-30] MEDS: TIMOLOL 0.25% OPHTHALMIC SOL 5 ML BOTTLE OU SCH (09:37)
[2019-05-30] MEDS: BUDESONIDE/FORMETEROL FUMARATE 160/4.5 mcg INHALER IH SCH (09:38)
--- NOTE | 2019-05-30 11:35 | PN ---
Progress Note (short form) - Note Progress Note: Reports breathing feels a little better. Still with cough, but dry. Nasal congestion better (chronic). No acute events overnight. Intake & Output 05/27/19 05/28/19 05/29/19 05/30/19 23:59 23:59 23:59 23:59 Intake Total 1000 1050 950 250 Balance 1000 1050 950 250 Last Vital Signs Temp Pulse Resp BP Pulse Ox 98.1 F 85 20 133/65 94 L 05/30/19 08:34 05/30/19 08:34 05/30/19 08:34 05/30/19 08:34 05/30/19 08:17 Active Medications Al Hydroxide/Mg Hydroxide (Mylanta Oral Suspension -) 30 ml PO Q6H PRN PRN Reason: DYSPEPSIA Last Admin: 05/28/19 14:22 Dose: 30 ml Albuterol/Ipratropium (Duoneb -) 1 amp NEB RQID [facility] Last Admin: 05/30/19 07:35 Dose: 1 amp Amlodipine Besylate (Norvasc -) 10 mg PO DAILY [facility] Last Admin: 05/30/19 09:14 Dose: 10 mg Budesonide/Formoterol Fumarate (Symbicort 160/4.5mcg -) 2 puff IH BID [facility] Last Admin: 05/30/19 09:38 Dose: 2 puff Fluticasone Propionate (Flonase -) 2 spray NS DAILY [facility] Last Admin: 05/30/19 09:12 Dose: 2 spray Latanoprost (Xalatan 0.005% Eye Drops -) 1 drop OU HS [facility] Last Admin: 05/29/19 21:48 Dose: 1 drop Lisinopril (Prinivil) 10 mg PO DAILY [facility] Last Admin: 05/30/19 09:14 Dose: 10 mg Pantoprazole Sodium (Protonix -) 20 mg PO DAILY [facility] Last Admin: 05/30/19 09:14 Dose: 20 mg Prednisone (Deltasone -) 40 mg PO DAILY [facility] Last Admin: 05/30/19 09:14 Dose: 40 mg Sodium Chloride ([place] Nasal [place] -) 2 spray NS TID PRN PRN Reason: NASAL CONGESTION Last Admin: 05/30/19 09:13 Dose: 2 spray Timolol Maleate (Timoptic 0.25%) 1 drop OU BID [facility] Last Admin: 05/30/19 09:37 Dose: 1 drop Constitutional: Yes: NAD Eyes: Yes: EOM Intact HENT: Yes: Normocephalic Neck: Yes: Trachea Midline Cardiovascular: Yes: S1, S2 Respiratory: Yes: Minimal scattered Expiratory Wheeze and rhonchi Gastrointestinal: Yes: Normal Bowel Sounds Edema: No Neurological: Yes: Alert Labs: Problem List - Problems (1) COPD exacerbation Code(s): J44.1 - CHRONIC OBSTRUCTIVE PULMONARY DISEASE W (ACUTE) EXACERBATION (2) Glaucoma Code(s): H40.9 - UNSPECIFIED GLAUCOMA (3) HTN (hypertension) Code(s): I10 - ESSENTIAL (PRIMARY) HYPERTENSION (4) Homeless Code(s): Z59.0 - HOMELESSNESS Assessment/Plan NASAL SALINE AND FLUTICASONE NO SMOKING O2 SUPPLEMENTATION BRONCHODILATORS PREDNISON: WOULD DO A SLOW TAPER PATIENT FOLLOWS WITH DR KERR IN THE OFFICE DC PLANNING HOME Dr Sawyer
--- NOTE | 2019-05-30 16:41 | PN ---
Teaching Attending Note Name of Resident: Isa Yu ATTENDING PHYSICIAN STATEMENT I saw and evaluated the patient. I reviewed the resident's note and discussed the case with the resident. I agree with the resident's findings and plan as documented. SUBJECTIVE: Patient has no complaints. OBJECTIVE: Vital Signs Period Temp Pulse Resp BP Sys/Ferreira Pulse Ox Last 24 Hr 97.3 F-98.2 F 79-90 20-20 120-133/60-68 94-94 HEART: S1S2, RRR LUNGS: Few wheezes ABDOMEN: Soft, non-tender, non-distended, normal BS EXTREMITIES: No edema Current Medications Generic Name Dose Route Start Last Admin Trade Name Freq PRN Reason Stop Dose Admin Al Hydroxide/Mg Hydroxide 30 ml 05/28/19 12:43 05/28/19 14:22 Mylanta Oral Suspension - PO 30 ml Q6H PRN Administration DYSPEPSIA Albuterol/Ipratropium 1 amp 05/24/19 16:00 05/30/19 15:51 Duoneb - NEB 1 amp RQID NANCY Administration Amlodipine Besylate 10 mg 05/25/19 10:00 05/30/19 09:14 Norvasc - PO 10 mg DAILY NANCY Administration Budesonide/Formoterol Fumarate 2 puff 05/24/19 22:00 05/30/19 09:38 Symbicort 160/4.5mcg - IH 2 puff BID NANCY Administration Fluticasone Propionate 2 spray 05/27/19 13:45 05/30/19 09:12 Flonase - NS 2 spray DAILY NANCY Administration Latanoprost 1 drop 05/25/19 22:00 05/29/19 21:48 Xalatan 0.005% Eye Drops - OU 1 drop HS NANCY Administration Lisinopril 10 mg 05/25/19 10:00 05/30/19 09:14 Prinivil PO 10 mg DAILY NANCY Administration Pantoprazole Sodium 20 mg 05/27/19 10:00 05/30/19 09:14 Protonix - PO 20 mg DAILY NANCY Administration Prednisone 40 mg 05/29/19 11:30 05/30/19 09:14 Deltasone - PO 40 mg DAILY NANCY Administration Sodium Chloride 2 spray 05/27/19 13:30 05/30/19 09:13 [place] Nasal [place] - NS 2 spray TID PRN Administration NASAL CONGESTION Timolol Maleate 1 drop 05/24/19 22:00 05/30/19 09:37 Timoptic 0.25% OU 1 drop BID NANCY Administration ASSESSMENT AND PLAN: This is a 73 year old man with a history of HTN, COPD, glaucoma who presented to the ED with SOB. 1. Acute exacerbation of COPD - Improved - Completed Zithromax - Discharge on Prednisone taper, Symbicort 2. Thrombocytopenia - Improved 3. HTN - Continue lisinopril, Norvasc 4. Glaucoma - Continue Timoptic, Xalatan
[2019-05-30 17:27] VITALS: BP 119/62; PULSE 87; TEMP 98.9
--- NOTE | 2019-05-30 19:05 | DS ---
Physical Exam: SUBJECTIVE: Patient seen and examined at bedside this morning. no acute events overnight. Patient reports feeling better, but endorses still some dyspnea on exertion, but denies any fever, chills, chest pain, palpitations, abdominal pain , diarrhea, urinary symptoms. OBJECTIVE: Vital Signs Temperature 98.9 F 05/30/19 17:24 Pulse Rate 87 05/30/19 17:24 Respiratory Rate 20 05/30/19 17:24 Blood Pressure 119/62 05/30/19 17:24 O2 Sat by Pulse Oximetry (%) 94 L 05/30/19 08:17 PHYSICAL EXAM GENERAL: The patient is awake, alert, and fully oriented, in no acute distress. HEAD: Normal with no signs of trauma. EYES:PERRLA, sclera anicteric, conjunctiva clear. ENT:moist mucous membranes. NECK: Trachea midline, full range of motion, supple. LUNGS: +scattered wheezes bilaterally HEART: Regular rate and rhythm, S1, S2 without murmur, rub or gallop. ABDOMEN: Soft, nontender, nondistended, normoactive bowel sounds. EXTREMITIES: 2+ pulses, warm, well-perfused, no edema. NEUROLOGICAL: Cranial nerves II through XII grossly intact. Normal speech, gait not observed. PSYCH: Normal mood, normal affect. SKIN: Warm, dry, normal turgor, no rashes or lesions noted. LABS CBC, BMP 05/29/19 06:55 05/29/19 06:55 HOSPITAL COURSE: Date of Admission:05/24/19 Date of Discharge: 05/30/19 Patient is a 73 year old man with a history of HTN, COPD, glaucoma admitted for COPD exacerbation. Patient was started on IV steroids and bronchodilators. He also completed a course of antibiotics. While in the hospital patient had an episode of choking on food. He was evaluated by speech and swallow and was deemed to have normal swallowing mechanics. Patient continued to improve the rest of hospital stay, and was tapered down on the steroids. Patient was discharged with steroid taper and instructions to follow up with PCP and pulmonology. Minutes to complete discharge: 35 Discharge Summary Problems reviewed: Yes Reason For Visit: ACUTE EXACERBATION OF CHRONIC OBSTRUCTIVE Condition: Stable - Instructions Diet, Activity, Other Instructions: You were admitted to the hospital because you had trouble breathing. This is likely from your COPD. You were treated with antibiotics, steroids and inhalers. Medication Changes: 1. You will need to continue taking steroids for 12 more days. You will need to taper down the dose as instructed below: - For 3 days, May 31, you will take 4 pills per day - For 3 days, June 03, you will take 3 pills per day - For 3 days, June 06, you will take 2 pills per day - For 3 days, June 09, you will take 1 pill per day 2. You should continue taking Lisinopril and amlodipine once a day for your blood pressure. 3. Continue using Symbicort 1 puff 2x / day and Spiriva 2 puffs daily. You can use the albuterol inhaler as needed. 4. You should continue to use your nebulizer as needed. 5. You can use Protonix 20 mg daily for heartburn for one month Follow up with the following physicians: 1. Please follow up at the [facility] within 1 week to monitor your blood pressure. 2. Please follow up with your computing services director, Dr. Mohr, for management of your COPD. We recommend you have PFTs to assess your breathing. Please return to the ER if you have any signs or symptoms of chest pain, shortness of breath, uncontrollable fever, chills, nausea, vomiting, numbness, tingling, or weakness in any part of your body, changes in vision, or slurred speech. Please return to the ER if symptoms persist, worsen, or new symptoms arise. Referrals: [facility] [place] [Provider Group] Jose Mohr MD [Staff Physician] - 1 Week Disposition: HOME - Home Medications Comprehensive Discharge Medication List: Ambulatory Orders Latanoprost 0.005% Eye Drops [Xalatan 0.005% Eye Drops -] 1 drop OU BID Timolol Maleate 1 drop OU BID 10/18/18 Albuterol Sulfate Inhaler - [Ventolin HFA Inhaler -] 1 puff IH PRN PRN #1 inhaler 11/13/18 Amlodipine Besylate [Norvasc -] 10 mg PO DAILY #30 tablet 11/13/18 Budesonide/Formeterol Fumarate [SYMBICORT 160/4.5mcg -] 2 puff IH BID #1 inhaler 11/13/18 Guaifenesin AC [Robitussin AC -] 10 ml PO Q8H PRN ud MDD 40 ml 11/13/18 Lisinopril [Prinivil] 10 mg PO DAILY #30 tablet 11/13/18 Pantoprazole Sodium [Protonix -] 40 mg PO DAILY #30 tablet.ec 11/13/18 Tiotropium [place] [Spiriva Respimat] 2 puff IH DAILY #1 inhaler 11/13/18 Albuterol 0.083% Nebulizer Shyanne [Ventolin 0.083% Nebulizer Soln -] 1 amp NEB Q6H #1 box 05/30/19 Fluticasone Prop 0.05% Nasal [Flonase -] 2 spray NS DAILY spray 05/30/19 Nebulizer Accessories [Adult Aerosol Mask] 1 each MC Q6H #1 each 05/30/19 Nebulizer [Aeroeclipse II] 1 each MC Q6H #1 each 05/30/19 Prednisone See Taper PO DAILY #30 tablet 05/30/19 This patient is new to me today: Yes Date on this admission: 05/30/19 Emergency Visit: Yes ED Registration Date: 05/24/19 Care time: The patient presented to the Emergency Department on the above date and was hospitalized for further evaluation of their emergent condition. Critical Care patient: No - Discharge Referral Referred to [facility] Med P.C.: No ATTENDING PHYSICIAN STATEMENT I saw and evaluated the patient. I reviewed the resident's note and discussed the case with the resident. I agree with the resident's findings and plan as documented. SUBJECTIVE: OBJECTIVE: ASSESSMENT AND PLAN:
== END 2019-05-30 18:26 | disposition home or self-care (01) | DRG 192 ==
LOC: JER 08:17 → JERBED 10:50 → J7W 05-25 13:20
PROVIDERS: ADMIT Internal Medicine; ATTEND Internal Medicine
DX: J44.1 Chronic obstructive pulmonary disease with (acute) exacerbation (principal); T17.920A Food in respiratory tract, part unspecified causing asphyxiation, initial encounter; I10 Essential (primary) hypertension; H40.9 Unspecified glaucoma; D69.6 Thrombocytopenia, unspecified; M62.838 Other muscle spasm; X58.XXXA Exposure to other specified factors, initial encounter; Y93.89 Activity, other specified; Y92.230 Patient room in hospital as the place of occurrence of the external cause; Y99.8 Other external cause status; Z59.0 Homelessness
CPT/HCPCS: 36415; 36600; 71045-TC-FY; 80048; 80053; 82375; 82542; 82550; 82803; 83050; 83880; 84484; 85025; 93005; 93010; 94640; 94761; 97116-GP; 97161-GP; 99285-25

== ENCOUNTER 2021-08-24 18:12 | Inpatient (IN) | payer OTHER ==
[2021-08-24] MEDS ORDERED: ALBUTEROL SO4 2.5/IPRATROPIUM 0.5 INH SOL 3 ML VIAL.NEB. NEB ONE ×2 (18:47→18:52)
[2021-08-24] MEDS ORDERED: DEXAMETHASONE SOD PHOSPHATE 10 MG/1 ML VIAL IVPUSH ONE (18:48)
[2021-08-24] MEDS ORDERED: DEXAMETHASONE SOD PHOSPHATE 10 MG/1 ML VIAL ONE (18:52)
[2021-08-24 19:44] LABS: BASO % 1.2 % (0-2.0); EOS % 5.1 % (0-4.5); HEMATOCRIT 36.4 % (35.4-49); HEMOGLOBIN 11.4 GM/dL (11.7-16.9); LYMPH % 10.4 % (8-40); MCHC 31.3 g/dl (32.0-35.9); MEAN CELL VOLUME 79.9 fl (80-96); MEAN PLT VOLUME 8.4 fl (7.5-11.1); MONO % 5.6 % (3.8-10.2); NEUT % 77.7 % (42.8-82.8); PLATELET COUNT 293 10^3/uL (134-434); RBC 4.55 M/mm3 (4.00-5.60); WHITE BLOOD COUNT 9.1 K/mm3 (4.0-10.0)
[2021-08-24 20:07] LABS: CALCIUM 8.6 mg/dL (8.5-10.1)
[2021-08-24 20:08] LABS: ALBUMIN 3.5 g/dl (3.4-5.0); BLOOD UREA NITROGEN 19.5 mg/dL (7-18)
[2021-08-24 20:13] LABS: BILIRUBIN,TOTAL 0.5 mg/dL (0.2-1); TOT PROT 6.6 g/dl (6.4-8.2)
[2021-08-24 21:25] LABS: ARTERIAL BLD GAS O2 SATURATION 93.7 % (95-98); ARTERIAL BLOOD GAS BASE EXCESS -1.4 mmol/L (-2-2); ARTERIAL BLOOD GAS PO2 66.1 mmHg (80-100); ARTERIAL BLOOD GAS pH 7.424 (7.350-7.450)
[2021-08-24 21:26] LABS: ALLENS TEST POSITIVE
[2021-08-24] MEDS ORDERED: ALBUTEROL SO4 HFA INHALER IH PRN (23:40)
[2021-08-25] MEDS ORDERED: methylPREDNISolone NA SUCC 40 MG/1 ML VIAL ONE (03:24)
[2021-08-25] MEDS: methylPREDNISolone NA SUCC 40 MG/1 ML VIAL IVPUSH SCH ×3 (03:32→17:42)
[2021-08-25 04:10] VITALS: BMI 30.7
[2021-08-25 07:37] LABS: HEMATOCRIT 35.1 % (35.4-49); HEMOGLOBIN 10.9 GM/dL (11.7-16.9); MCH 24.8 pg (25.7-33.7); MEAN CELL VOLUME 80.1 fl (80-96); MEAN PLT VOLUME 8.3 fl (7.5-11.1); PLATELET COUNT 304 10^3/uL (134-434); RBC 4.39 M/mm3 (4.00-5.60); RDW 18.4 % (11.9-15.9); WHITE BLOOD COUNT 8.2 K/mm3 (4.0-10.0)
[2021-08-25 07:54] LABS: CALCIUM 8.9 mg/dL (8.5-10.1)
[2021-08-25 07:55] LABS: ALBUMIN 3.2 g/dl (3.4-5.0); BLOOD UREA NITROGEN 25.4 mg/dL (7-18); MAGNESIUM 2.5 mg/dL (1.8-2.4)
[2021-08-25 07:58] LABS: CREATININE 1.3 mg/dL (0.55-1.3)
[2021-08-25 08:00] LABS: BILIRUBIN,TOTAL 1.1 mg/dL (0.2-1); TOT PROT 6.2 g/dl (6.4-8.2)
[2021-08-25 09:38] LABS: ANISOCYTOSIS 3+; MACROCYTOSIS 0
[2021-08-25] MEDS: LISINOPRIL 10 MG TABLET PO SCH (11:09)
[2021-08-25] MEDS: amLODIPine BESYLATE 10 MG TABLET (FP) PO SCH (11:09)
[2021-08-25] MEDS: ENOXAPARIN NA (PORCINE) 40 MG/0.4 ML DISP.SYRIN SQ SCH (11:09)
[2021-08-25] MEDS: BUDESONIDE/FORMETEROL FUMARATE 160/4.5 mcg INHALER IH SCH ×2 (14:15→21:36)
[2021-08-25] MEDS: TIOTROPIUM BROMIDE 2.5 MCG (SPIRIVA) RESPIMAT INHALER IH SCH (14:16)
[2021-08-25] MEDS: ALBUTEROL SO4 2.5/IPRATROPIUM 0.5 INH SOL 3 ML VIAL.NEB. NEB PRN (14:54)
[2021-08-25 17:09] LABS: SARS-CoV-2 NAA Not Detected (Not Detected)
[2021-08-26] MEDS: methylPREDNISolone NA SUCC 40 MG/1 ML VIAL IVPUSH SCH ×3 (01:08→17:18)
[2021-08-26 09:01] LABS: HEMATOCRIT 32.9 % (35.4-49); HEMOGLOBIN 10.2 GM/dL (11.7-16.9); MCH 24.7 pg (25.7-33.7); MCHC 30.9 g/dl (32.0-35.9); MEAN CELL VOLUME 80.1 fl (80-96); MEAN PLT VOLUME 8.3 fl (7.5-11.1); PLATELET COUNT 297 10^3/uL (134-434); RBC 4.11 M/mm3 (4.00-5.60); RDW 17.4 % (11.9-15.9); WHITE BLOOD COUNT 20.5 K/mm3 (4.0-10.0)
[2021-08-26] MEDS: ALBUTEROL SO4 2.5/IPRATROPIUM 0.5 INH SOL 3 ML VIAL.NEB. NEB PRN (09:10)
[2021-08-26] MEDS: amLODIPine BESYLATE 10 MG TABLET (FP) PO SCH (09:24)
[2021-08-26] MEDS: LISINOPRIL 10 MG TABLET PO SCH (09:24)
[2021-08-26] MEDS: BUDESONIDE/FORMETEROL FUMARATE 160/4.5 mcg INHALER IH SCH ×2 (09:25→21:09)
[2021-08-26] MEDS: TIOTROPIUM BROMIDE 2.5 MCG (SPIRIVA) RESPIMAT INHALER IH SCH (09:26)
[2021-08-26 09:32] LABS: CALCIUM 8.6 mg/dL (8.5-10.1)
[2021-08-26 09:33] LABS: BLOOD UREA NITROGEN 36.6 mg/dL (7-18)
[2021-08-26 09:35] LABS: CREATININE 1.3 mg/dL (0.55-1.3)
[2021-08-26 09:37] LABS: BILIRUBIN,TOTAL 0.2 mg/dL (0.2-1); TOT PROT 5.8 g/dl (6.4-8.2)
[2021-08-26] MEDS: ENOXAPARIN NA (PORCINE) 40 MG/0.4 ML DISP.SYRIN SQ SCH (09:41)
[2021-08-26 10:17] LABS: ANISOCYTOSIS 1+; MACROCYTOSIS 0; OVALOCYTE 1+
[2021-08-26] MEDS: ALBUTEROL SO4 0.083% IH SOL 2.5 MG/3 ML VIAL.NEB. NEB PRN (13:33)
[2021-08-27] MEDS: methylPREDNISolone NA SUCC 40 MG/1 ML VIAL IVPUSH SCH ×3 (01:17→17:00)
[2021-08-27] MEDS: ALBUTEROL SO4 0.083% IH SOL 2.5 MG/3 ML VIAL.NEB. NEB PRN ×3 (02:04→16:59)
[2021-08-27] MEDS: LISINOPRIL 10 MG TABLET PO SCH (09:37)
[2021-08-27] MEDS: amLODIPine BESYLATE 10 MG TABLET (FP) PO SCH (09:37)
[2021-08-27] MEDS: ENOXAPARIN NA (PORCINE) 40 MG/0.4 ML DISP.SYRIN SQ SCH (09:37)
[2021-08-27] MEDS: BUDESONIDE/FORMETEROL FUMARATE 160/4.5 mcg INHALER IH SCH ×2 (09:37→21:04)
[2021-08-27] MEDS: TIOTROPIUM BROMIDE 2.5 MCG (SPIRIVA) RESPIMAT INHALER IH SCH (09:38)
[2021-08-27 14:09] LABS: HEMATOCRIT 34.4 % (35.4-49); HEMOGLOBIN 10.7 GM/dL (11.7-16.9); MCH 24.6 pg (25.7-33.7); MCHC 31.2 g/dl (32.0-35.9); MEAN PLT VOLUME 8.4 fl (7.5-11.1); PLATELET COUNT 327 10^3/uL (134-434); RBC 4.35 M/mm3 (4.00-5.60); RDW 17.7 % (11.9-15.9); WHITE BLOOD COUNT 18.7 K/mm3 (4.0-10.0)
[2021-08-27 14:35] LABS: ALBUMIN 3.1 g/dl (3.4-5.0); BLOOD UREA NITROGEN 38.4 mg/dL (7-18); CALCIUM 8.6 mg/dL (8.5-10.1)
[2021-08-27 14:38] LABS: CREATININE 1.2 mg/dL (0.55-1.3)
[2021-08-27 14:40] LABS: BILIRUBIN,TOTAL 0.3 mg/dL (0.2-1); TOT PROT 5.8 g/dl (6.4-8.2)
[2021-08-27 14:48] LABS: ANISOCYTOSIS 0; HELMET CELLS 0; HOWELL-JOLLY BODIES 0; MACROCYTOSIS 0; OVALOCYTE 0; ROULEAU 0; SICKELED CELLS 0; TARGET CELLS 0; TEAR DROP CELLS 0; TOXIC GRANULATION 0
[2021-08-28] MEDS: methylPREDNISolone NA SUCC 40 MG/1 ML VIAL IVPUSH SCH ×3 (01:18→17:20)
[2021-08-28] MEDS: ENOXAPARIN NA (PORCINE) 40 MG/0.4 ML DISP.SYRIN SQ SCH (09:22)
[2021-08-28] MEDS: BUDESONIDE/FORMETEROL FUMARATE 160/4.5 mcg INHALER IH SCH ×2 (09:23→21:44)
[2021-08-28] MEDS: LISINOPRIL 10 MG TABLET PO SCH (09:23)
[2021-08-28] MEDS: amLODIPine BESYLATE 10 MG TABLET (FP) PO SCH (09:23)
[2021-08-28] MEDS: TIOTROPIUM BROMIDE 2.5 MCG (SPIRIVA) RESPIMAT INHALER IH SCH (09:23)
[2021-08-28 11:10] LABS: BLOOD UREA NITROGEN 33.9 mg/dL (7-18); CALCIUM 8.6 mg/dL (8.5-10.1)
[2021-08-28 11:13] LABS: CREATININE 1.2 mg/dL (0.55-1.3)
[2021-08-28 11:15] LABS: BILIRUBIN,TOTAL 0.9 mg/dL (0.2-1); TOT PROT 5.7 g/dl (6.4-8.2)
[2021-08-28 11:22] LABS: HEMATOCRIT 34.8 % (35.4-49); HEMOGLOBIN 10.7 GM/dL (11.7-16.9); MCH 24.8 pg (25.7-33.7); MCHC 30.8 g/dl (32.0-35.9); MEAN CELL VOLUME 80.7 fl (80-96); MEAN PLT VOLUME 8.8 fl (7.5-11.1); PLATELET COUNT 330 10^3/uL (134-434); RBC 4.31 M/mm3 (4.00-5.60); RDW 17.9 % (11.9-15.9); WHITE BLOOD COUNT 15.2 K/mm3 (4.0-10.0)
[2021-08-28] MEDS: ALBUTEROL SO4 0.083% IH SOL 2.5 MG/3 ML VIAL.NEB. NEB SCH ×3 (12:45→20:00)
[2021-08-28 12:52] LABS: ANISOCYTOSIS 1+; MACROCYTOSIS 0; OVALOCYTE 1+; PLATELET ESTIMATE NORMAL
[2021-08-28] MEDS: INSULIN SLIDING SCALE (NOVOLOG) 1 VIAL SQ SCH ×2 (16:34→21:43)
[2021-08-29] MEDS: methylPREDNISolone NA SUCC 40 MG/1 ML VIAL IVPUSH SCH ×2 (02:02→10:01)
[2021-08-29] MEDS: INSULIN SLIDING SCALE (NOVOLOG) 1 VIAL SQ SCH ×2 (06:52→11:23)
[2021-08-29] MEDS: ALBUTEROL SO4 0.083% IH SOL 2.5 MG/3 ML VIAL.NEB. NEB SCH ×3 (08:31→15:28)
[2021-08-29 09:05] LABS: HEMATOCRIT 34.4 % (35.4-49); MCH 25.4 pg (25.7-33.7); MCHC 31.9 g/dl (32.0-35.9); MEAN CELL VOLUME 79.6 fl (80-96); MEAN PLT VOLUME 8.3 fl (7.5-11.1); PLATELET COUNT 284 10^3/uL (134-434); RBC 4.32 M/mm3 (4.00-5.60); RDW 17.8 % (11.9-15.9); WHITE BLOOD COUNT 10.8 K/mm3 (4.0-10.0)
[2021-08-29 09:33] LABS: CALCIUM 8.2 mg/dL (8.5-10.1)
[2021-08-29 09:36] LABS: CREATININE 1.1 mg/dL (0.55-1.3)
[2021-08-29] MEDS: LISINOPRIL 10 MG TABLET PO SCH (09:40)
[2021-08-29] MEDS: amLODIPine BESYLATE 10 MG TABLET (FP) PO SCH (09:40)
[2021-08-29 10:27] LABS: ANISOCYTOSIS 0; HELMET CELLS 0; HOWELL-JOLLY BODIES 0; MACROCYTOSIS 0; OVALOCYTE 0; ROULEAU 0; SICKELED CELLS 0; TARGET CELLS 0; TEAR DROP CELLS 0; TOXIC GRANULATION 0
[2021-08-29] MEDS: BUDESONIDE/FORMETEROL FUMARATE 160/4.5 mcg INHALER IH SCH (11:15)
[2021-08-29] MEDS ORDERED: predniSONE 20 MG TABLET (UD) PO SCH (11:15)
[2021-08-29] MEDS: TIOTROPIUM BROMIDE 2.5 MCG (SPIRIVA) RESPIMAT INHALER IH SCH (11:17)
[2021-08-29] MEDS ORDERED: INSULIN (NOVOLOG) ASPART 100 UNITS/ML 10ML VIAL ONE (11:22)
[2021-08-29] MEDS: ENOXAPARIN NA (PORCINE) 40 MG/0.4 ML DISP.SYRIN SQ SCH (12:19)
[2021-08-29 14:16] VITALS: BP 125/60; PULSE 96; TEMP 97.9
== END 2021-08-29 16:17 | DRG 191 ==
LOC: JER 18:12 → JERBED 21:12 → J6S 08-25 03:39
PROVIDERS: ADMIT Hospitalist
DX: J44.1 Chronic obstructive pulmonary disease with (acute) exacerbation (principal); J45.901 Unspecified asthma with (acute) exacerbation; J98.11 Atelectasis; I10 Essential (primary) hypertension; Z28.310 Unvaccinated for COVID-19; N40.0 Benign prostatic hyperplasia without lower urinary tract symptoms
CPT/HCPCS: 36415; 36600; 71045-TC-FY; 80048; 80053; 80061; 82803; 82962; 83036; 83735; 84443; 84484; 85025; 87804; 94640; 97116-GP; 97162-GP; 99285-25; C9803-CS; J1100; U0003; U0005

== ENCOUNTER 2021-10-16 22:14 | Inpatient (IN) | payer OTHER ==
[2021-10-16] MEDS ORDERED: DEXAMETHASONE SOD PHOSPHATE 10 MG/1 ML VIAL ONE (22:23)
[2021-10-16] MEDS ORDERED: ALBUTEROL SO4 2.5/IPRATROPIUM 0.5 INH SOL 3 ML VIAL.NEB. NEB ONE ×4 (22:23→23:56)
[2021-10-16] MEDS ORDERED: MAGNESIUM SULFATE IN WATER 2 GM/50 ML IVPB IVPB ONE (22:24)
[2021-10-16 23:19] LABS: HEMATOCRIT 37.9 % (35.4-49); HEMOGLOBIN 12.4 GM/dL (11.7-16.9); MCH 27.6 pg (25.7-33.7); MCHC 32.8 g/dl (32.0-35.9); MEAN CELL VOLUME 84.3 fl (80-96); MEAN PLT VOLUME 8.9 fl (7.5-11.1); RBC 4.49 M/mm3 (4.00-5.60); RDW 20.4 % (11.9-15.9)
[2021-10-16 23:26] LABS: INR 1.27 (0.83-1.09); PROTHROMBIN TIME (PATIENT) 14.6 SEC (9.7-13.0)
[2021-10-16 23:27] LABS: EOS % 2.6 % (0-4.5); LYMPH % 6.5 % (8-40); MONO % 4.8 % (3.8-10.2); NEUT % 85.1 % (42.8-82.8); WHITE BLOOD COUNT 21.1 K/mm3 (4.0-10.0)
[2021-10-16 23:29] LABS: ACTIVATED PTT 25.8 SECONDS (25.2-36.5)
[2021-10-16] MEDS ORDERED: VANCOMYCIN 1 GM in D5W (PRE-DOCKED) 1,000 MG/250 ML IVPB ONE (23:39)
[2021-10-16] MEDS ORDERED: PIPERACILLIN/TAZOB 3.375 GM 3.375 GM in DEXTROSE 5%-WATER - 50 ML IVPB ONE (23:39)
[2021-10-16 23:42] LABS: CHLORIDE 99 mmol/L (98-107); SODIUM 136 mmol/L (136-145)
[2021-10-16 23:44] LABS: ALBUMIN 3.3 g/dl (3.4-5.0); CALCIUM 8.8 mg/dL (8.5-10.1); CO2 29 mmol/L (21-32); GLUCOSE,RANDOM 141 mg/dL (74-106)
[2021-10-16] MEDS ORDERED: PIPERACILLIN/TAZOB 3.375 GM 3.375 GM/50 ML BAG IVPB ONE (23:46)
[2021-10-16 23:48] LABS: CREATININE 1.2 mg/dL (0.55-1.3)
[2021-10-16 23:49] LABS: BILIRUBIN,TOTAL 0.7 mg/dL (0.2-1); TOT PROT 7.6 g/dl (6.4-8.2)
[2021-10-16 23:50] LABS: ALK PHOS 93 U/L (45-117)
[2021-10-16 23:58] LABS: ANION GAP 8 MMOL/L (8-16); SGOT/AST 141 U/L (15-37); SGPT/ALT 53 U/L (13-61)
[2021-10-17] MEDS: ALBUTEROL SO4 2.5/IPRATROPIUM 0.5 INH SOL 3 ML VIAL.NEB. NEB SCH ×4 (00:01→20:05)
[2021-10-17 00:30] LABS: ARTERIAL BLD GAS O2 SATURATION 98.9 % (95-98); ARTERIAL BLOOD GAS BASE EXCESS 0 mmol/L (-2-2); ARTERIAL BLOOD GAS PO2 144.7 mmHg (80-100); ARTERIAL BLOOD GAS pH 7.411 (7.350-7.450)
[2021-10-17] MEDS ORDERED: VANCOMYCIN 1 GRAM (PRE-DOCKED) 1,000 MG/250 ML BAG IVPB ONE (00:50)
[2021-10-17] MEDS ORDERED: ACETAMINOPHEN 325 MG TABLET (FP) PO PRN (01:15)
[2021-10-17] MEDS ORDERED: POLYETHYLENE GLYCOL (HEALTHYLAX) 3350 17 GM PACKET PO PRN (01:15)
[2021-10-17] MEDS ORDERED: ASPIRIN 81 MG CHEWABLE TABLETS PO ONE (01:18)
[2021-10-17 01:27] LABS: ANISOCYTOSIS 2+; MACROCYTOSIS 0; PLATELET ESTIMATE NORMAL
[2021-10-17 01:34] LABS: PLATELET COUNT 271 10^3/uL (134-434)
[2021-10-17] MEDS ORDERED: ALBUTEROL SO4 0.083% IH SOL 2.5 MG/3 ML VIAL.NEB. NEB PRN (02:55)
[2021-10-17] MEDS ORDERED: ASPIRIN 81 MG CHEWABLE TABLETS ONE (03:25)
[2021-10-17 04:34] LABS: CHLORIDE 102 mmol/L (98-107); SODIUM 139 mmol/L (136-145)
[2021-10-17 04:36] LABS: ANION GAP 9 MMOL/L (8-16); BLOOD UREA NITROGEN 22.1 mg/dL (7-18); CALCIUM 8.8 mg/dL (8.5-10.1); CO2 28 mmol/L (21-32)
[2021-10-17 04:37] LABS: GLUCOSE,RANDOM 175 mg/dL (74-106)
[2021-10-17 07:56] LABS: HEMATOCRIT 36.1 % (35.4-49); HEMOGLOBIN 11.8 GM/dL (11.7-16.9); MCH 27.8 pg (25.7-33.7); MCHC 32.8 g/dl (32.0-35.9); MEAN CELL VOLUME 84.7 fl (80-96); PLATELET COUNT 238 10^3/uL (134-434); RBC 4.26 M/mm3 (4.00-5.60); RDW 19.8 % (11.9-15.9); WHITE BLOOD COUNT 10.4 K/mm3 (4.0-10.0)
[2021-10-17] MEDS ORDERED: PIPERACILLIN/TAZOB 3.375 GM 3.375 GM in DEXTROSE 5%-WATER - 50 ML IVPB SCH ×2 (08:00→09:00)
[2021-10-17 08:43] LABS: CHLORIDE 98 mmol/L (98-107); SODIUM 137 mmol/L (136-145)
[2021-10-17 08:49] LABS: CALCIUM 8.6 mg/dL (8.5-10.1)
[2021-10-17 08:50] LABS: ANION GAP 9 MMOL/L (8-16); BLOOD UREA NITROGEN 20.9 mg/dL (7-18); CO2 29 mmol/L (21-32); GLUCOSE,RANDOM 167 mg/dL (74-106); MAGNESIUM 2.7 mg/dL (1.8-2.4)
[2021-10-17 08:53] LABS: CREATININE 1.1 mg/dL (0.55-1.3)
[2021-10-17] MEDS ORDERED: CHOLECALCIFEROL (VIT D3) 1,000 UNIT (25 MCG) TABLET ONE (08:59)
[2021-10-17] MEDS ORDERED: ZINC SULFATE 220 MG CAPSULE (FP) ONE (08:59)
[2021-10-17] MEDS ORDERED: FUROSEMIDE 20 MG TABLET (FP) ONE (09:00)
[2021-10-17] MEDS ORDERED: LISINOPRIL 10 MG TABLET ONE (09:00)
[2021-10-17] MEDS ORDERED: ENOXAPARIN NA (PORCINE) 40 MG/0.4 ML DISP.SYRIN SQ ONE (09:00)
[2021-10-17] MEDS ORDERED: ASCORBIC ACID 500 MG TABLET (FP) ONE (09:00)
[2021-10-17] MEDS ORDERED: methylPREDNISolone NA SUCC 40 MG/1 ML VIAL ONE (09:01)
[2021-10-17] MEDS ORDERED: PIPERACILLIN/TAZOB 3.375 GM 3.375 GM/50 ML BAG IVPB ONE (09:01)
[2021-10-17 09:37] LABS: ANISOCYTOSIS 0; MACROCYTOSIS 0; OVALOCYTE 1+
[2021-10-17] MEDS: ARTIFICIAL TEARS (POLYVINYL ALCOHOL) OPTH DROPS OU SCH ×2 (09:42→21:58)
[2021-10-17] MEDS: FUROSEMIDE 20 MG TABLET (FP) PO SCH (09:44)
[2021-10-17] MEDS: ZINC SULFATE 220 MG CAPSULE (FP) PO SCH (09:44)
[2021-10-17] MEDS: PANTOPRAZOLE 20 MG TABLET PO SCH (09:44)
[2021-10-17] MEDS: BUDESONIDE/FORMETEROL FUMARATE 160/4.5 mcg INHALER IH SCH ×2 (09:44→21:59)
[2021-10-17] MEDS: methylPREDNISolone NA SUCC 40 MG/1 ML VIAL IVPUSH SCH ×2 (09:44→21:26)
[2021-10-17] MEDS: TIMOLOL 0.5% OPHTHALMIC SOL 5 ML BOTTLE OU SCH ×2 (09:44→21:59)
[2021-10-17] MEDS: ASCORBIC ACID 500 MG TABLET (FP) PO SCH ×2 (09:44→21:27)
[2021-10-17] MEDS: LISINOPRIL 10 MG TABLET PO SCH (09:44)
[2021-10-17] MEDS: ENOXAPARIN NA (PORCINE) 40 MG/0.4 ML DISP.SYRIN SQ SCH (09:44)
[2021-10-17 11:50] LABS: EPI CELLS 6 /uL (0-25.1); HYALINE CASTS 2 /uL (0-3.1); URINE APPEARANCE CLEAR; URINE BACTERIA 261 /uL (0-1359); URINE BILIRUBIN NEGATIVE (NEGATIVE); URINE COLOR YELLOW; URINE GLUCOSE (UA) NEGATIVE (NEGATIVE); URINE KETONE 1+ (NEGATIVE); URINE LEUK ESTERASE NEGATIVE (NEGATIVE); URINE NITRITE NEGATIVE (NEGATIVE); URINE PROTEIN 2+ (NEGATIVE); URINE RBC 29 /uL (0-23.9); URINE UROBILINOGEN 0.2 mg/dL (0.2-1.0); URINE WBC 4 /uL (0-25.8)
[2021-10-17] MEDS ORDERED: ALBUTEROL SO4 0.083% IH SOL 2.5 MG/3 ML VIAL.NEB. NEB ONE (11:56)
[2021-10-17] MEDS ORDERED: VANCOMYCIN 1 GM in D5W (PRE-DOCKED) 1,000 MG/250 ML IVPB SCH (13:00)
[2021-10-17 20:44] VITALS: BMI 28.3
[2021-10-17] MEDS ORDERED: PNEUMOC 20-VAL CONJ-DIP CRM/PF 0.5 ML SYRINGE IM ONE (20:44)
[2021-10-17] MEDS: LATANOPROST 0.005% OPHTH SOLN 2.5ML BOTTLE OU SCH (22:00)
[2021-10-18] MEDS: methylPREDNISolone NA SUCC 40 MG/1 ML VIAL IVPUSH SCH ×3 (03:45→17:32)
[2021-10-18] MEDS: ALBUTEROL SO4 2.5/IPRATROPIUM 0.5 INH SOL 3 ML VIAL.NEB. NEB SCH ×3 (07:35→22:05)
[2021-10-18 08:17] LABS: MCH 27.4 pg (25.7-33.7); MCHC 32.5 g/dl (32.0-35.9); MEAN CELL VOLUME 84.4 fl (80-96); MEAN PLT VOLUME 8.4 fl (7.5-11.1); PLATELET COUNT 231 10^3/uL (134-434); RBC 4.02 M/mm3 (4.00-5.60); RDW 19.7 % (11.9-15.9); WHITE BLOOD COUNT 13.6 K/mm3 (4.0-10.0)
[2021-10-18 08:38] LABS: CALCIUM 8.5 mg/dL (8.5-10.1)
[2021-10-18 08:39] LABS: BLOOD UREA NITROGEN 31.5 mg/dL (7-18)
[2021-10-18 08:42] LABS: CREATININE 1.1 mg/dL (0.55-1.3)
[2021-10-18 08:45] LABS: BILIRUBIN,DIRECT 0.2 mg/dL (0.0-0.2)
[2021-10-18 08:46] LABS: BILIRUBIN,TOTAL 0.6 mg/dL (0.2-1)
[2021-10-18 09:11] LABS: TOT PROT 5.5 g/dl (6.4-8.2)
[2021-10-18] MEDS: LISINOPRIL 10 MG TABLET PO SCH (09:44)
[2021-10-18] MEDS: ZINC SULFATE 220 MG CAPSULE (FP) PO SCH (09:44)
[2021-10-18] MEDS: FUROSEMIDE 20 MG TABLET (FP) PO SCH (09:44)
[2021-10-18] MEDS: ASCORBIC ACID 500 MG TABLET (FP) PO SCH ×2 (09:44→21:48)
[2021-10-18] MEDS: PANTOPRAZOLE 20 MG TABLET PO SCH (09:44)
[2021-10-18] MEDS: CHOLECALCIFEROL (VIT D3) 1,000 UNIT (25 MCG) TABLET PO SCH ×2 (09:44→10:00)
[2021-10-18] MEDS: ENOXAPARIN NA (PORCINE) 40 MG/0.4 ML DISP.SYRIN SQ SCH (09:44)
[2021-10-18] MEDS: BUDESONIDE/FORMETEROL FUMARATE 160/4.5 mcg INHALER IH SCH ×2 (09:45→21:57)
[2021-10-18] MEDS: TIMOLOL 0.5% OPHTHALMIC SOL 5 ML BOTTLE OU SCH ×2 (09:46→21:58)
[2021-10-18] MEDS: ARTIFICIAL TEARS (POLYVINYL ALCOHOL) OPTH DROPS OU SCH ×2 (09:46→21:57)
[2021-10-18] MEDS ORDERED: PIPERACILLIN/TAZOB 3.375 GM 3.375 GM in DEXTROSE 5%-WATER - 50 ML IVPB SCH (10:00)
[2021-10-18] MEDS ORDERED: VANCOMYCIN 1 GM in D5W (PRE-DOCKED) 1,000 MG/250 ML IVPB SCH (13:00)
[2021-10-18] MEDS: ASPIRIN 81 MG CHEWABLE TABLETS PO SCH (15:42)
[2021-10-18] MEDS ORDERED: MAG HYDROX/AL HYDROX/SIMETH -MYLANTA- ORAL SUSPENSION PO ONE (20:25)
[2021-10-18] MEDS: ATORVASTATIN CA 20 MG TABLET (FP) PO SCH (21:47)
[2021-10-18] MEDS: LATANOPROST 0.005% OPHTH SOLN 2.5ML BOTTLE OU SCH (21:58)
[2021-10-19] MEDS: methylPREDNISolone NA SUCC 40 MG/1 ML VIAL IVPUSH SCH (00:59)
[2021-10-19] MEDS: ALBUTEROL SO4 2.5/IPRATROPIUM 0.5 INH SOL 3 ML VIAL.NEB. NEB SCH ×3 (07:30→19:23)
[2021-10-19] MEDS: ASPIRIN 81 MG CHEWABLE TABLETS PO SCH (09:27)
[2021-10-19] MEDS: CHOLECALCIFEROL (VIT D3) 1,000 UNIT (25 MCG) TABLET PO SCH (09:27)
[2021-10-19] MEDS: predniSONE 10 MG TABLET (UD) PO SCH ×2 (09:27→20:59)
[2021-10-19] MEDS: FUROSEMIDE 20 MG TABLET (FP) PO SCH (09:27)
[2021-10-19] MEDS: ZINC SULFATE 220 MG CAPSULE (FP) PO SCH (09:27)
[2021-10-19] MEDS: ASCORBIC ACID 500 MG TABLET (FP) PO SCH ×2 (09:27→20:59)
[2021-10-19] MEDS: LISINOPRIL 10 MG TABLET PO SCH (09:27)
[2021-10-19] MEDS: ENOXAPARIN NA (PORCINE) 40 MG/0.4 ML DISP.SYRIN SQ SCH (09:27)
[2021-10-19] MEDS: PANTOPRAZOLE 20 MG TABLET PO SCH (09:27)
[2021-10-19] MEDS: TIMOLOL 0.5% OPHTHALMIC SOL 5 ML BOTTLE OU SCH ×2 (09:28→21:00)
[2021-10-19] MEDS: BUDESONIDE/FORMETEROL FUMARATE 160/4.5 mcg INHALER IH SCH ×2 (09:32→21:00)
[2021-10-19] MEDS: ARTIFICIAL TEARS (POLYVINYL ALCOHOL) OPTH DROPS OU SCH ×2 (09:32→20:59)
[2021-10-19] MEDS: ATORVASTATIN CA 20 MG TABLET (FP) PO SCH (20:59)
[2021-10-19] MEDS: LATANOPROST 0.005% OPHTH SOLN 2.5ML BOTTLE OU SCH (22:00)
[2021-10-20] MEDS: ALBUTEROL SO4 2.5/IPRATROPIUM 0.5 INH SOL 3 ML VIAL.NEB. NEB SCH (07:25)
[2021-10-20 09:03] VITALS: BP 135/76; PULSE 78; TEMP 98.5
[2021-10-20] MEDS: FUROSEMIDE 20 MG TABLET (FP) PO SCH (09:20)
[2021-10-20] MEDS: LISINOPRIL 10 MG TABLET PO SCH (09:20)
[2021-10-20] MEDS: CHOLECALCIFEROL (VIT D3) 1,000 UNIT (25 MCG) TABLET PO SCH (09:20)
[2021-10-20] MEDS: ENOXAPARIN NA (PORCINE) 40 MG/0.4 ML DISP.SYRIN SQ SCH (09:20)
[2021-10-20] MEDS: ASCORBIC ACID 500 MG TABLET (FP) PO SCH (09:20)
[2021-10-20] MEDS: ASPIRIN 81 MG CHEWABLE TABLETS PO SCH (09:21)
[2021-10-20] MEDS: PANTOPRAZOLE 20 MG TABLET PO SCH (09:21)
[2021-10-20] MEDS: predniSONE 10 MG TABLET (UD) PO SCH (09:21)
[2021-10-20] MEDS: ZINC SULFATE 220 MG CAPSULE (FP) PO SCH (09:21)
[2021-10-20] MEDS: ARTIFICIAL TEARS (POLYVINYL ALCOHOL) OPTH DROPS OU SCH (09:22)
[2021-10-20] MEDS: TIMOLOL 0.5% OPHTHALMIC SOL 5 ML BOTTLE OU SCH (09:22)
[2021-10-20] MEDS: BUDESONIDE/FORMETEROL FUMARATE 160/4.5 mcg INHALER IH SCH (09:22)
== END 2021-10-20 13:00 | DRG 192 ==
LOC: JER 22:14 → JERBED 10-17 01:17 → J4W 10-17 18:24
PROVIDERS: ADMIT Internal Medicine; ATTEND Family Medicine
DX: J44.1 Chronic obstructive pulmonary disease with (acute) exacerbation (principal); J45.909 Unspecified asthma, uncomplicated; I10 Essential (primary) hypertension; D72.829 Elevated white blood cell count, unspecified; N40.0 Benign prostatic hyperplasia without lower urinary tract symptoms; H40.9 Unspecified glaucoma
CPT/HCPCS: 36415; 36600; 71045-TC-FY; 80048; 80053; 80076; 81003; 82550; 82553; 82803; 82962; 83605; 83735; 84484; 85025; 85027; 85610; 85730; 87040; 87086; 87186; 90677; 93005; 93010; 93306-TC; 93970-TC; 94640; 99285-25; C9803-CS; U0003; U0005

== ENCOUNTER 2021-12-22 12:26 | Inpatient (IN) | payer OTHER ==
[2021-12-22] MEDS ORDERED: VANCOMYCIN 1 GM in D5W (PRE-DOCKED) 1,000 MG/250 ML IVPB ONE (13:15)
[2021-12-22] MEDS ORDERED: PIPERACILLIN/TAZOB 4.5 GM 4.5 GM in DEXTROSE 5%-WATER 100 ML IVPB ONE (13:15)
[2021-12-22] MEDS ORDERED: CLINDAMYCIN 900 MG PREMIX IVPB 900 MG/50 ML BAG IVPB ONE ×2 (13:17→13:30)
[2021-12-22] MEDS ORDERED: morphine CARPU-JECT 4 MG/1 ML DISP.SYRIN IVPUSH ONE ×2 (13:18→16:08)
[2021-12-22] MEDS ORDERED: VANCOMYCIN/WATER FOR INJ (PEG) 1,000 MG/200 ML BAG IVPB ONE (13:31)
[2021-12-22] MEDS ORDERED: PIPERACILLIN/TAZOB 4.5 GM 4.5 GM/100 ML BAG IVPB ONE (13:31)
[2021-12-22 14:56] LABS: HEMOGLOBIN 9.8 GM/dL (11.7-16.9); MCH 31.7 pg (25.7-33.7); MCHC 33.9 g/dl (32.0-35.9); MEAN CELL VOLUME 93.5 fl (80-96); PLATELET COUNT 364 10^3/uL (134-434); RDW 17.8 % (11.9-15.9); WHITE BLOOD COUNT 8.6 K/mm3 (4.0-10.0)
[2021-12-22 15:03] LABS: INR 1.55 (0.83-1.09); PROTHROMBIN TIME (PATIENT) 17.9 SEC (9.7-13.0)
[2021-12-22 15:06] LABS: ACTIVATED PTT 32.3 SECONDS (25.2-36.5)
[2021-12-22 15:23] LABS: ANISOCYTOSIS 1+; MACROCYTOSIS 0
[2021-12-22 15:24] LABS: CALCIUM 8.2 mg/dL (8.5-10.1); MAGNESIUM 2.1 mg/dL (1.8-2.4)
[2021-12-22 15:25] LABS: ALBUMIN 1.9 g/dl (3.4-5.0); BLOOD UREA NITROGEN 16.3 mg/dL (7-18)
[2021-12-22 15:29] LABS: TOT PROT 5.5 g/dl (6.4-8.2)
[2021-12-22 15:30] LABS: BILIRUBIN,TOTAL 0.8 mg/dL (0.2-1)
[2021-12-22 15:34] LABS: ERYTHROCYTE SEDIMENTATION RATE 109 mm/hr (0-20)
[2021-12-22] MEDS ORDERED: ACETAMINOPHEN 325 MG TABLET (FP) PO PRN (18:27)
[2021-12-22] MEDS ORDERED: POLYETHYLENE GLYCOL (HEALTHYLAX) 3350 17 GM PACKET PO PRN (18:27)
[2021-12-22 18:28] LABS: PH,URINE 7.5 (5.0-8.0); URINE APPEARANCE CLEAR; URINE BILIRUBIN NEGATIVE (NEGATIVE); URINE COLOR YELLOW; URINE GLUCOSE (UA) NEGATIVE (NEGATIVE); URINE KETONE NEGATIVE (NEGATIVE); URINE LEUK ESTERASE NEGATIVE (NEGATIVE); URINE NITRITE NEGATIVE (NEGATIVE); URINE PROTEIN NEGATIVE (NEGATIVE)
[2021-12-22] MEDS ORDERED: traMADol HCL 50 MG TABLET PO ONE (21:33)
[2021-12-22] MEDS: BUDESONIDE/FORMETEROL FUMARATE 160/4.5 mcg INHALER IH SCH (22:00)
[2021-12-22] MEDS: LATANOPROST 0.005% OPHTH SOLN 2.5ML BOTTLE OU SCH (22:03)
[2021-12-22] MEDS: TIMOLOL 0.5% OPHTHALMIC SOL 5 ML BOTTLE OU SCH (22:03)
[2021-12-22] MEDS: ATORVASTATIN CA 20 MG TABLET (FP) PO SCH (22:04)
[2021-12-22] MEDS: predniSONE 20 MG TABLET (UD) PO SCH (22:04)
[2021-12-23] MEDS: PIPERACILLIN/TAZOB 3.375 GM 3.375 GM in DEXTROSE 5%-WATER - 50 ML IVPB SCH ×4 (01:34→17:27)
[2021-12-23] MEDS: ALBUTEROL SO4 2.5/IPRATROPIUM 0.5 INH SOL 3 ML VIAL.NEB. NEB SCH ×3 (07:20→20:05)
[2021-12-23 09:11] LABS: HEMATOCRIT 28.5 % (35.4-49); HEMOGLOBIN 9.3 GM/dL (11.7-16.9); MCH 30.2 pg (25.7-33.7); MCHC 32.6 g/dl (32.0-35.9); MEAN CELL VOLUME 92.6 fl (80-96); MEAN PLT VOLUME 7.3 fl (7.5-11.1); PLATELET COUNT 386 10^3/uL (134-434); RBC 3.08 M/mm3 (4.00-5.60); RDW 16.9 % (11.9-15.9)
[2021-12-23] MEDS: PANTOPRAZOLE 20 MG TABLET PO SCH (09:33)
[2021-12-23] MEDS: LISINOPRIL 10 MG TABLET PO SCH (09:33)
[2021-12-23] MEDS: amLODIPine BESYLATE 10 MG TABLET (FP) PO SCH (09:33)
[2021-12-23] MEDS: FUROSEMIDE 20 MG TABLET (FP) PO SCH (09:33)
[2021-12-23] MEDS: predniSONE 20 MG TABLET (UD) PO SCH (09:33)
[2021-12-23 09:38] LABS: ALBUMIN 1.8 g/dl (3.4-5.0); BLOOD UREA NITROGEN 17.7 mg/dL (7-18); CALCIUM 8.1 mg/dL (8.5-10.1)
[2021-12-23 09:41] LABS: CREATININE 0.9 mg/dL (0.55-1.3)
[2021-12-23 09:43] LABS: TOT PROT 5.1 g/dl (6.4-8.2)
[2021-12-23] MEDS: BUDESONIDE/FORMETEROL FUMARATE 160/4.5 mcg INHALER IH SCH ×2 (09:51→21:08)
[2021-12-23] MEDS: TIOTROPIUM BROMIDE 2.5 MCG (SPIRIVA) RESPIMAT INHALER IH SCH (09:52)
[2021-12-23] MEDS: TIMOLOL 0.5% OPHTHALMIC SOL 5 ML BOTTLE OU SCH ×2 (09:52→21:08)
[2021-12-23] MEDS ORDERED: ENOXAPARIN NA (PORCINE) 40 MG/0.4 ML DISP.SYRIN SQ SCH (10:00)
[2021-12-23 10:25] LABS: INR 1.57 (0.83-1.09); PROTHROMBIN TIME (PATIENT) 18.1 SEC (9.7-13.0)
[2021-12-23 11:12] LABS: ANISOCYTOSIS 2+; MACROCYTOSIS 1+; TEAR DROP CELLS 1+
[2021-12-23] MEDS: ALBUTEROL SO4 0.083% IH SOL 2.5 MG/3 ML VIAL.NEB. NEB SCH ×2 (11:16→17:45)
[2021-12-23] MEDS: VANCOMYCIN/WATER FOR INJ (PEG) 1,000 MG/200 ML BAG IVPB SCH (13:54)
[2021-12-23] MEDS: traMADol HCL 50 MG TABLET PO PRN ×2 (15:58→21:07)
[2021-12-23] MEDS: predniSONE 10 MG TABLET (UD) PO SCH (21:07)
[2021-12-23] MEDS: ATORVASTATIN CA 20 MG TABLET (FP) PO SCH (21:07)
[2021-12-23] MEDS: LATANOPROST 0.005% OPHTH SOLN 2.5ML BOTTLE OU SCH (21:09)
[2021-12-24] MEDS: VANCOMYCIN/WATER FOR INJ (PEG) 1,000 MG/200 ML BAG IVPB SCH ×2 (00:33→12:29)
[2021-12-24] MEDS: PIPERACILLIN/TAZOB 3.375 GM 3.375 GM in DEXTROSE 5%-WATER - 50 ML IVPB SCH ×3 (01:58→17:58)
[2021-12-24] MEDS: ALBUTEROL SO4 2.5/IPRATROPIUM 0.5 INH SOL 3 ML VIAL.NEB. NEB SCH ×3 (07:52→20:55)
[2021-12-24] MEDS: LISINOPRIL 10 MG TABLET PO SCH (09:21)
[2021-12-24] MEDS: PANTOPRAZOLE 20 MG TABLET PO SCH (09:22)
[2021-12-24] MEDS: FUROSEMIDE 20 MG TABLET (FP) PO SCH (09:22)
[2021-12-24] MEDS: traMADol HCL 50 MG TABLET PO PRN (09:22)
[2021-12-24] MEDS: predniSONE 20 MG TABLET (UD) PO SCH (09:22)
[2021-12-24] MEDS: amLODIPine BESYLATE 10 MG TABLET (FP) PO SCH (09:22)
[2021-12-24] MEDS: BUDESONIDE/FORMETEROL FUMARATE 160/4.5 mcg INHALER IH SCH ×2 (09:24→21:42)
[2021-12-24] MEDS: TIOTROPIUM BROMIDE 2.5 MCG (SPIRIVA) RESPIMAT INHALER IH SCH (09:24)
[2021-12-24] MEDS: TIMOLOL 0.5% OPHTHALMIC SOL 5 ML BOTTLE OU SCH ×2 (09:24→21:43)
[2021-12-24 09:47] LABS: INR 1.19 (0.83-1.09); PROTHROMBIN TIME (PATIENT) 13.7 SEC (9.7-13.0)
[2021-12-24 09:58] LABS: HEMATOCRIT 27.3 % (35.4-49); HEMOGLOBIN 8.9 GM/dL (11.7-16.9); MCH 30.4 pg (25.7-33.7); MCHC 32.7 g/dl (32.0-35.9); MEAN PLT VOLUME 7.6 fl (7.5-11.1); PLATELET COUNT 389 10^3/uL (134-434); RBC 2.93 M/mm3 (4.00-5.60); RDW 16.6 % (11.9-15.9); WHITE BLOOD COUNT 10.7 K/mm3 (4.0-10.0)
[2021-12-24 10:22] LABS: CALCIUM 7.8 mg/dL (8.5-10.1)
[2021-12-24 10:23] LABS: ALBUMIN 1.9 g/dl (3.4-5.0); BLOOD UREA NITROGEN 21.9 mg/dL (7-18)
[2021-12-24 10:24] LABS: BILIRUBIN,TOTAL 0.6 mg/dL (0.2-1); TOT PROT 5.3 g/dl (6.4-8.2)
[2021-12-24 12:22] LABS: ANISOCYTOSIS 0; MACROCYTOSIS 0
[2021-12-24] MEDS: ACETAMINOPHEN WITH CODEINE 300MG/30MG TABLET PO PRN ×2 (12:29→18:00)
[2021-12-24 13:10] LABS: BASO % 0.1 % (0-2.0); EOS % 0.2 % (0-4.5); HEMATOCRIT 28.8 % (35.4-49); HEMOGLOBIN 9.4 GM/dL (11.7-16.9); LYMPH % 4.5 % (8-40); MCHC 32.5 g/dl (32.0-35.9); MEAN CELL VOLUME 92.4 fl (80-96); MEAN PLT VOLUME 7.2 fl (7.5-11.1); MONO % 3.4 % (3.8-10.2); NEUT % 91.8 % (42.8-82.8); PLATELET COUNT 412 10^3/uL (134-434); RBC 3.12 M/mm3 (4.00-5.60); RDW 16.9 % (11.9-15.9); WHITE BLOOD COUNT 11.6 K/mm3 (4.0-10.0)
[2021-12-24 14:10] LABS: ANISOCYTOSIS 0; MACROCYTOSIS 0
[2021-12-24] MEDS: ALBUTEROL SO4 0.083% IH SOL 2.5 MG/3 ML VIAL.NEB. NEB SCH ×3 (15:21→15:22)
[2021-12-24] MEDS: predniSONE 10 MG TABLET (UD) PO SCH (21:41)
[2021-12-24] MEDS: ATORVASTATIN CA 20 MG TABLET (FP) PO SCH (21:42)
[2021-12-24] MEDS: LATANOPROST 0.005% OPHTH SOLN 2.5ML BOTTLE OU SCH (21:43)
[2021-12-25] MEDS: ALBUTEROL SO4 0.083% IH SOL 2.5 MG/3 ML VIAL.NEB. NEB SCH ×4 (01:11→20:34)
[2021-12-25] MEDS: PIPERACILLIN/TAZOB 3.375 GM 3.375 GM in DEXTROSE 5%-WATER - 50 ML IVPB SCH ×3 (02:15→17:00)
[2021-12-25] MEDS: VANCOMYCIN/WATER FOR INJ (PEG) 1,000 MG/200 ML BAG IVPB SCH ×2 (03:41→12:33)
[2021-12-25] MEDS: ALBUTEROL SO4 2.5/IPRATROPIUM 0.5 INH SOL 3 ML VIAL.NEB. NEB SCH ×2 (08:41→20:35)
[2021-12-25] MEDS: FUROSEMIDE 20 MG TABLET (FP) PO SCH (10:17)
[2021-12-25] MEDS: amLODIPine BESYLATE 10 MG TABLET (FP) PO SCH (10:17)
[2021-12-25] MEDS: LISINOPRIL 10 MG TABLET PO SCH (10:17)
[2021-12-25] MEDS: predniSONE 20 MG TABLET (UD) PO SCH (10:17)
[2021-12-25] MEDS: PANTOPRAZOLE 20 MG TABLET PO SCH (10:17)
[2021-12-25] MEDS: TIOTROPIUM BROMIDE 2.5 MCG (SPIRIVA) RESPIMAT INHALER IH SCH (10:17)
[2021-12-25] MEDS: TIMOLOL 0.5% OPHTHALMIC SOL 5 ML BOTTLE OU SCH ×2 (10:18→22:02)
[2021-12-25] MEDS: BUDESONIDE/FORMETEROL FUMARATE 160/4.5 mcg INHALER IH SCH ×2 (10:18→22:01)
[2021-12-25] MEDS: ACETAMINOPHEN WITH CODEINE 300MG/30MG TABLET PO PRN ×3 (10:48→22:00)
[2021-12-25 12:48] LABS: HEMATOCRIT 27.4 % (35.4-49); HEMOGLOBIN 9.2 GM/dL (11.7-16.9); MCHC 33.7 g/dl (32.0-35.9); MEAN CELL VOLUME 92.2 fl (80-96); MEAN PLT VOLUME 7.2 fl (7.5-11.1); PLATELET COUNT 481 10^3/uL (134-434); RBC 2.97 M/mm3 (4.00-5.60); RDW 16.6 % (11.9-15.9); WHITE BLOOD COUNT 14.6 K/mm3 (4.0-10.0)
[2021-12-25 14:38] LABS: ANISOCYTOSIS 2+; MACROCYTOSIS 0; TEAR DROP CELLS 1+
[2021-12-25] MEDS: predniSONE 10 MG TABLET (UD) PO SCH (22:01)
[2021-12-25] MEDS: ATORVASTATIN CA 20 MG TABLET (FP) PO SCH (22:01)
[2021-12-25] MEDS: LATANOPROST 0.005% OPHTH SOLN 2.5ML BOTTLE OU SCH (22:02)
[2021-12-26] MEDS: ALBUTEROL SO4 0.083% IH SOL 2.5 MG/3 ML VIAL.NEB. NEB SCH ×2 (00:30→06:18)
[2021-12-26] MEDS: VANCOMYCIN/WATER FOR INJ (PEG) 1,000 MG/200 ML BAG IVPB SCH ×3 (01:28→15:27)
[2021-12-26] MEDS: PIPERACILLIN/TAZOB 3.375 GM 3.375 GM in DEXTROSE 5%-WATER - 50 ML IVPB SCH ×3 (02:43→17:12)
[2021-12-26] MEDS: ALBUTEROL SO4 2.5/IPRATROPIUM 0.5 INH SOL 3 ML VIAL.NEB. NEB SCH ×4 (07:45→20:26)
[2021-12-26 08:23] LABS: HEMOGLOBIN 9.8 GM/dL (11.7-16.9); MCH 29.6 pg (25.7-33.7); MCHC 31.6 g/dl (32.0-35.9); MEAN CELL VOLUME 93.6 fl (80-96); MEAN PLT VOLUME 7.3 fl (7.5-11.1); PLATELET COUNT 485 10^3/uL (134-434); RBC 3.31 M/mm3 (4.00-5.60); RDW 17.4 % (11.9-15.9)
[2021-12-26] MEDS: ACETAMINOPHEN WITH CODEINE 300MG/30MG TABLET PO PRN ×3 (08:24→23:20)
[2021-12-26 08:35] LABS: INR 1.34 (0.83-1.09); PROTHROMBIN TIME (PATIENT) 15.4 SEC (9.7-13.0)
[2021-12-26 09:54] LABS: ANISOCYTOSIS 1+; MACROCYTOSIS 1+
[2021-12-26] MEDS: FUROSEMIDE 20 MG TABLET (FP) PO SCH (11:04)
[2021-12-26] MEDS: predniSONE 20 MG TABLET (UD) PO SCH (11:04)
[2021-12-26] MEDS: amLODIPine BESYLATE 10 MG TABLET (FP) PO SCH (11:04)
[2021-12-26] MEDS: BUDESONIDE/FORMETEROL FUMARATE 160/4.5 mcg INHALER IH SCH ×2 (11:05→23:16)
[2021-12-26] MEDS: LISINOPRIL 10 MG TABLET PO SCH (11:05)
[2021-12-26] MEDS: TIMOLOL 0.5% OPHTHALMIC SOL 5 ML BOTTLE OU SCH ×2 (11:05→23:17)
[2021-12-26] MEDS: PANTOPRAZOLE 20 MG TABLET PO SCH (11:05)
[2021-12-26] MEDS: TIOTROPIUM BROMIDE 2.5 MCG (SPIRIVA) RESPIMAT INHALER IH SCH (11:05)
[2021-12-26] MEDS ORDERED: LIDOCAINE HCL 1%, 10 MG/ML (20ML VIAL) ONE (12:07)
[2021-12-26] MEDS ORDERED: GENTAMICIN SO4 80 MG/2 ML VIAL ONE (12:08)
[2021-12-26] MEDS ORDERED: BUPIVACAINE HCL/PF 0.25% (2.5MG/ML) 10 ML VIAL ONE (12:08)
[2021-12-26] MEDS ORDERED: PROPOFOL 20 ML ONE (12:09)
[2021-12-26] MEDS ORDERED: ONDANSETRON 4 MG/2 ML VIAL IVPUSH PRN ×2 (12:23→13:38)
[2021-12-26] MEDS ORDERED: DEXMEDETOMIDINE HCL 200 MCG/2 ML IVPB ONE (12:24)
[2021-12-26] MEDS ORDERED: LACTATED RINGERS SOLUTION 1,000 ML IV SCH ×2 (12:30→13:38)
[2021-12-26] MEDS ORDERED: KETAMINE HCL 200 MG/20 ML VIAL ONE (12:30)
[2021-12-26] MEDS ORDERED: GENTAMICIN SO4 80 MG/2 ML VIAL IVPB ONE ×2 (12:31→13:00)
[2021-12-26] MEDS ORDERED: POLYETHYLENE GLYCOL (HEALTHYLAX) 3350 17 GM PACKET PO PRN (13:38)
[2021-12-26 14:30] LABS: HEMATOCRIT 29.5 % (35.4-49); HEMOGLOBIN 9.6 GM/dL (11.7-16.9); MCH 29.9 pg (25.7-33.7); MCHC 32.5 g/dl (32.0-35.9); MEAN CELL VOLUME 92.1 fl (80-96); MEAN PLT VOLUME 7.4 fl (7.5-11.1); PLATELET COUNT 486 10^3/uL (134-434); RBC 3.21 M/mm3 (4.00-5.60); RDW 16.7 % (11.9-15.9); WHITE BLOOD COUNT 14.3 K/mm3 (4.0-10.0)
[2021-12-26 15:01] LABS: ANISOCYTOSIS 0; MACROCYTOSIS 0
[2021-12-26] MEDS ORDERED: predniSONE 10 MG TABLET (UD) PO SCH (22:00)
[2021-12-26] MEDS: predniSONE 10 MG TABLET (UD) PO SCH (23:15)
[2021-12-26] MEDS: ATORVASTATIN CA 20 MG TABLET (FP) PO SCH (23:15)
[2021-12-26] MEDS: LATANOPROST 0.005% OPHTH SOLN 2.5ML BOTTLE OU SCH (23:17)
[2021-12-27] MEDS: VANCOMYCIN/WATER FOR INJ (PEG) 1,000 MG/200 ML BAG IVPB SCH ×2 (00:57→13:54)
[2021-12-27] MEDS: PIPERACILLIN/TAZOB 3.375 GM 3.375 GM in DEXTROSE 5%-WATER - 50 ML IVPB SCH ×3 (02:51→18:06)
[2021-12-27] MEDS: ALBUTEROL SO4 2.5/IPRATROPIUM 0.5 INH SOL 3 ML VIAL.NEB. NEB SCH ×3 (08:25→20:00)
[2021-12-27 08:48] LABS: HEMATOCRIT 30.9 % (35.4-49); HEMOGLOBIN 10.4 GM/dL (11.7-16.9); MCH 31.2 pg (25.7-33.7); MCHC 33.5 g/dl (32.0-35.9); MEAN CELL VOLUME 92.9 fl (80-96); MEAN PLT VOLUME 7.1 fl (7.5-11.1); PLATELET COUNT 520 10^3/uL (134-434); RBC 3.32 M/mm3 (4.00-5.60); WHITE BLOOD COUNT 13.3 K/mm3 (4.0-10.0)
[2021-12-27] MEDS ORDERED: ONDANSETRON 4 MG/2 ML VIAL IVPUSH PRN (08:59)
[2021-12-27 09:01] LABS: CALCIUM 8.4 mg/dL (8.5-10.1)
[2021-12-27 09:02] LABS: BLOOD UREA NITROGEN 21.6 mg/dL (7-18)
[2021-12-27 09:04] LABS: CREATININE 1.2 mg/dL (0.55-1.3)
[2021-12-27 09:45] LABS: ANISOCYTOSIS 0; MACROCYTOSIS 0
[2021-12-27] MEDS ORDERED: predniSONE 20 MG TABLET (UD) PO SCH (10:00)
[2021-12-27] MEDS: predniSONE 10 MG TABLET (UD) PO SCH ×3 (10:55→22:54)
[2021-12-27] MEDS: amLODIPine BESYLATE 10 MG TABLET (FP) PO SCH (12:49)
[2021-12-27] MEDS: PANTOPRAZOLE 20 MG TABLET PO SCH (12:49)
[2021-12-27] MEDS: LISINOPRIL 10 MG TABLET PO SCH (12:50)
[2021-12-27] MEDS: FUROSEMIDE 20 MG TABLET (FP) PO SCH (12:50)
[2021-12-27] MEDS: TIOTROPIUM BROMIDE 2.5 MCG (SPIRIVA) RESPIMAT INHALER IH SCH (12:51)
[2021-12-27] MEDS: BUDESONIDE/FORMETEROL FUMARATE 160/4.5 mcg INHALER IH SCH ×2 (12:52→22:55)
[2021-12-27] MEDS: TIMOLOL 0.5% OPHTHALMIC SOL 5 ML BOTTLE OU SCH ×2 (12:53→22:56)
[2021-12-27] MEDS: ACETAMINOPHEN WITH CODEINE 300MG/30MG TABLET PO PRN (18:06)
[2021-12-27] MEDS: ATORVASTATIN CA 20 MG TABLET (FP) PO SCH (22:55)
[2021-12-27] MEDS: LATANOPROST 0.005% OPHTH SOLN 2.5ML BOTTLE OU SCH (22:56)
[2021-12-28] MEDS: VANCOMYCIN/WATER FOR INJ (PEG) 1,000 MG/200 ML BAG IVPB SCH ×2 (02:13→12:44)
[2021-12-28] MEDS: PIPERACILLIN/TAZOB 3.375 GM 3.375 GM in DEXTROSE 5%-WATER - 50 ML IVPB SCH ×3 (02:56→17:15)
[2021-12-28] MEDS ORDERED: ACETAMINOPHEN 1000 MG/100 ML BAG IVPB ONE (03:12)
[2021-12-28] MEDS: ALBUTEROL SO4 2.5/IPRATROPIUM 0.5 INH SOL 3 ML VIAL.NEB. NEB SCH ×3 (07:32→19:56)
[2021-12-28] MEDS: FUROSEMIDE 20 MG TABLET (FP) PO SCH (09:24)
[2021-12-28] MEDS: predniSONE 10 MG TABLET (UD) PO SCH (09:24)
[2021-12-28] MEDS: LISINOPRIL 10 MG TABLET PO SCH (09:24)
[2021-12-28] MEDS: amLODIPine BESYLATE 10 MG TABLET (FP) PO SCH (09:24)
[2021-12-28] MEDS: PANTOPRAZOLE 20 MG TABLET PO SCH (09:24)
[2021-12-28] MEDS: BUDESONIDE/FORMETEROL FUMARATE 160/4.5 mcg INHALER IH SCH ×2 (09:25→21:49)
[2021-12-28] MEDS: TIOTROPIUM BROMIDE 2.5 MCG (SPIRIVA) RESPIMAT INHALER IH SCH (09:25)
[2021-12-28] MEDS: TIMOLOL 0.5% OPHTHALMIC SOL 5 ML BOTTLE OU SCH ×2 (09:25→21:49)
[2021-12-28] MEDS: ACETAMINOPHEN WITH CODEINE 300MG/30MG TABLET PO PRN ×3 (11:19→22:16)
[2021-12-28] MEDS: LATANOPROST 0.005% OPHTH SOLN 2.5ML BOTTLE OU SCH (21:51)
[2021-12-28] MEDS: ATORVASTATIN CA 20 MG TABLET (FP) PO SCH (21:51)
[2021-12-29] MEDS: PIPERACILLIN/TAZOB 3.375 GM 3.375 GM in DEXTROSE 5%-WATER - 50 ML IVPB SCH ×3 (01:14→17:20)
[2021-12-29] MEDS: ALBUTEROL SO4 2.5/IPRATROPIUM 0.5 INH SOL 3 ML VIAL.NEB. NEB SCH ×3 (07:40→20:40)
[2021-12-29] MEDS: BUDESONIDE/FORMETEROL FUMARATE 160/4.5 mcg INHALER IH SCH ×2 (09:55→21:44)
[2021-12-29] MEDS: amLODIPine BESYLATE 10 MG TABLET (FP) PO SCH (09:55)
[2021-12-29] MEDS: FUROSEMIDE 20 MG TABLET (FP) PO SCH (09:55)
[2021-12-29] MEDS: TIOTROPIUM BROMIDE 2.5 MCG (SPIRIVA) RESPIMAT INHALER IH SCH (09:55)
[2021-12-29] MEDS: TIMOLOL 0.5% OPHTHALMIC SOL 5 ML BOTTLE OU SCH ×2 (09:55→21:44)
[2021-12-29] MEDS: predniSONE 10 MG TABLET (UD) PO SCH (09:55)
[2021-12-29] MEDS: LISINOPRIL 10 MG TABLET PO SCH (09:55)
[2021-12-29] MEDS: PANTOPRAZOLE 20 MG TABLET PO SCH (09:55)
[2021-12-29] MEDS: ACETAMINOPHEN WITH CODEINE 300MG/30MG TABLET PO PRN (09:57)
[2021-12-29] MEDS ORDERED: KETOROLAC TROMETHAMINE 15 MG/ML VIAL IVPUSH PRN (10:41)
[2021-12-29 15:19] LABS: HEMATOCRIT 29.3 % (35.4-49); HEMOGLOBIN 9.5 GM/dL (11.7-16.9); MCHC 32.3 g/dl (32.0-35.9); MEAN CELL VOLUME 92.9 fl (80-96); MEAN PLT VOLUME 7.3 fl (7.5-11.1); PLATELET COUNT 450 10^3/uL (134-434); RBC 3.15 M/mm3 (4.00-5.60); RDW 17.2 % (11.9-15.9); WHITE BLOOD COUNT 11.8 K/mm3 (4.0-10.0)
[2021-12-29 16:59] VITALS: BMI 28.9
[2021-12-29 17:08] LABS: ANISOCYTOSIS 2+; MACROCYTOSIS 0; OVALOCYTE 1+; TEAR DROP CELLS 1+
[2021-12-29] MEDS: LATANOPROST 0.005% OPHTH SOLN 2.5ML BOTTLE OU SCH (21:44)
[2021-12-29] MEDS: ATORVASTATIN CA 20 MG TABLET (FP) PO SCH (21:44)
[2021-12-30] MEDS: ACETAMINOPHEN WITH CODEINE 300MG/30MG TABLET PO PRN ×4 (00:01→21:16)
[2021-12-30] MEDS: PIPERACILLIN/TAZOB 3.375 GM 3.375 GM in DEXTROSE 5%-WATER - 50 ML IVPB SCH ×3 (01:12→17:27)
[2021-12-30] MEDS: ALBUTEROL SO4 2.5/IPRATROPIUM 0.5 INH SOL 3 ML VIAL.NEB. NEB SCH ×3 (07:24→20:29)
[2021-12-30] MEDS: PANTOPRAZOLE 20 MG TABLET PO SCH (09:31)
[2021-12-30] MEDS: FUROSEMIDE 20 MG TABLET (FP) PO SCH (09:31)
[2021-12-30] MEDS: predniSONE 10 MG TABLET (UD) PO SCH (09:31)
[2021-12-30] MEDS: LISINOPRIL 10 MG TABLET PO SCH (09:31)
[2021-12-30] MEDS: amLODIPine BESYLATE 10 MG TABLET (FP) PO SCH (09:31)
[2021-12-30] MEDS: BUDESONIDE/FORMETEROL FUMARATE 160/4.5 mcg INHALER IH SCH ×2 (09:32→21:03)
[2021-12-30] MEDS: TIMOLOL 0.5% OPHTHALMIC SOL 5 ML BOTTLE OU SCH ×2 (09:32→21:04)
[2021-12-30] MEDS: TIOTROPIUM BROMIDE 2.5 MCG (SPIRIVA) RESPIMAT INHALER IH SCH (09:32)
[2021-12-30] MEDS: ATORVASTATIN CA 20 MG TABLET (FP) PO SCH (21:03)
[2021-12-30] MEDS: LATANOPROST 0.005% OPHTH SOLN 2.5ML BOTTLE OU SCH (21:04)
[2021-12-31] MEDS: PIPERACILLIN/TAZOB 3.375 GM 3.375 GM in DEXTROSE 5%-WATER - 50 ML IVPB SCH ×3 (01:11→17:11)
[2021-12-31] MEDS: ALBUTEROL SO4 2.5/IPRATROPIUM 0.5 INH SOL 3 ML VIAL.NEB. NEB SCH (08:00)
[2021-12-31 08:17] LABS: HEMATOCRIT 27.1 % (35.4-49); HEMOGLOBIN 9.4 GM/dL (11.7-16.9); MCH 31.9 pg (25.7-33.7); MCHC 34.6 g/dl (32.0-35.9); MEAN CELL VOLUME 92.4 fl (80-96); MEAN PLT VOLUME 7.4 fl (7.5-11.1); PLATELET COUNT 380 10^3/uL (134-434); RBC 2.94 M/mm3 (4.00-5.60); RDW 16.9 % (11.9-15.9)
[2021-12-31 08:34] LABS: BLOOD UREA NITROGEN 14.9 mg/dL (7-18); CALCIUM 7.9 mg/dL (8.5-10.1)
[2021-12-31 08:38] LABS: CREATININE 0.8 mg/dL (0.55-1.3)
[2021-12-31] MEDS: ACETAMINOPHEN WITH CODEINE 300MG/30MG TABLET PO PRN ×2 (09:57→17:05)
[2021-12-31 09:59] LABS: ANISOCYTOSIS 3+; MACROCYTOSIS 0
[2021-12-31] MEDS: amLODIPine BESYLATE 10 MG TABLET (FP) PO SCH (09:59)
[2021-12-31] MEDS: predniSONE 10 MG TABLET (UD) PO SCH (09:59)
[2021-12-31] MEDS: LISINOPRIL 10 MG TABLET PO SCH (09:59)
[2021-12-31] MEDS: PANTOPRAZOLE 20 MG TABLET PO SCH (09:59)
[2021-12-31] MEDS: TIMOLOL 0.5% OPHTHALMIC SOL 5 ML BOTTLE OU SCH ×2 (10:00→21:37)
[2021-12-31] MEDS: BUDESONIDE/FORMETEROL FUMARATE 160/4.5 mcg INHALER IH SCH ×2 (10:00→21:37)
[2021-12-31] MEDS: FUROSEMIDE 20 MG TABLET (FP) PO SCH (10:00)
[2021-12-31] MEDS: TIOTROPIUM BROMIDE 2.5 MCG (SPIRIVA) RESPIMAT INHALER IH SCH (10:00)
[2021-12-31] MEDS: ATORVASTATIN CA 20 MG TABLET (FP) PO SCH (21:36)
[2021-12-31] MEDS: LATANOPROST 0.005% OPHTH SOLN 2.5ML BOTTLE OU SCH (21:37)
[2022-01-01] MEDS: PIPERACILLIN/TAZOB 3.375 GM 3.375 GM in DEXTROSE 5%-WATER - 50 ML IVPB SCH ×3 (01:09→17:38)
[2022-01-01] MEDS: ACETAMINOPHEN WITH CODEINE 300MG/30MG TABLET PO PRN (06:23)
[2022-01-01] MEDS ORDERED: REGADENOSON 0.4 MG/5 ML PRE-FILLED SYRINGE IVPUSH ONE ×2 (09:30→09:39)
[2022-01-01] MEDS: PANTOPRAZOLE 20 MG TABLET PO SCH (12:34)
[2022-01-01] MEDS: FUROSEMIDE 20 MG TABLET (FP) PO SCH (12:34)
[2022-01-01] MEDS: LISINOPRIL 10 MG TABLET PO SCH (12:35)
[2022-01-01] MEDS: predniSONE 10 MG TABLET (UD) PO SCH (12:35)
[2022-01-01] MEDS: amLODIPine BESYLATE 10 MG TABLET (FP) PO SCH (12:35)
[2022-01-01] MEDS: BUDESONIDE/FORMETEROL FUMARATE 160/4.5 mcg INHALER IH SCH ×2 (12:36→21:49)
[2022-01-01] MEDS: TIOTROPIUM BROMIDE 2.5 MCG (SPIRIVA) RESPIMAT INHALER IH SCH (12:36)
[2022-01-01] MEDS: TIMOLOL 0.5% OPHTHALMIC SOL 5 ML BOTTLE OU SCH ×2 (12:37→21:49)
[2022-01-01 15:23] LABS: BLOOD UREA NITROGEN 14.1 mg/dL (7-18)
[2022-01-01 15:26] LABS: CREATININE 0.7 mg/dL (0.55-1.3)
[2022-01-01] MEDS ORDERED: POTASSIUM CHLORIDE ORAL LIQUID 20 MEQ/15 ML PO ONE (16:19)
[2022-01-01] MEDS ORDERED: POTASSIUM CHLORIDE TABS 10 MEQ TABLET.ER (FP) PO ONE (16:57)
[2022-01-01] MEDS: ATORVASTATIN CA 20 MG TABLET (FP) PO SCH (21:45)
[2022-01-01] MEDS: LATANOPROST 0.005% OPHTH SOLN 2.5ML BOTTLE OU SCH (21:45)
[2022-01-02] MEDS: PIPERACILLIN/TAZOB 3.375 GM 3.375 GM in DEXTROSE 5%-WATER - 50 ML IVPB SCH ×3 (01:11→17:11)
[2022-01-02 07:47] LABS: HEMATOCRIT 28.6 % (35.4-49); HEMOGLOBIN 9.6 GM/dL (11.7-16.9); MCHC 33.7 g/dl (32.0-35.9); MEAN CELL VOLUME 92.2 fl (80-96); MEAN PLT VOLUME 7.5 fl (7.5-11.1); PLATELET COUNT 378 10^3/uL (134-434); RDW 17.1 % (11.9-15.9); WHITE BLOOD COUNT 7.8 K/mm3 (4.0-10.0)
[2022-01-02 08:13] LABS: CALCIUM 8.2 mg/dL (8.5-10.1)
[2022-01-02 08:14] LABS: BLOOD UREA NITROGEN 18.8 mg/dL (7-18); MAGNESIUM 1.9 mg/dL (1.8-2.4)
[2022-01-02 08:17] LABS: CREATININE 0.9 mg/dL (0.55-1.3)
[2022-01-02] MEDS: amLODIPine BESYLATE 10 MG TABLET (FP) PO SCH (09:22)
[2022-01-02] MEDS: LISINOPRIL 10 MG TABLET PO SCH (09:22)
[2022-01-02] MEDS: predniSONE 10 MG TABLET (UD) PO SCH (09:22)
[2022-01-02] MEDS: FUROSEMIDE 20 MG TABLET (FP) PO SCH (09:22)
[2022-01-02] MEDS: PANTOPRAZOLE 20 MG TABLET PO SCH (09:22)
[2022-01-02] MEDS: BUDESONIDE/FORMETEROL FUMARATE 160/4.5 mcg INHALER IH SCH ×2 (09:27→22:32)
[2022-01-02] MEDS: TIMOLOL 0.5% OPHTHALMIC SOL 5 ML BOTTLE OU SCH ×2 (09:27→22:32)
[2022-01-02] MEDS: TIOTROPIUM BROMIDE 2.5 MCG (SPIRIVA) RESPIMAT INHALER IH SCH (09:28)
[2022-01-02] MEDS ORDERED: ONABOTULINUMTOXINA 200 UNIT/VIAL VIAL NR ONE (10:00)
[2022-01-02] MEDS: LATANOPROST 0.005% OPHTH SOLN 2.5ML BOTTLE OU SCH (22:31)
[2022-01-02] MEDS: ATORVASTATIN CA 20 MG TABLET (FP) PO SCH (22:32)
[2022-01-03] MEDS: KETOROLAC TROMETHAMINE 15 MG/ML VIAL IVPUSH PRN ×3 (00:25→18:41)
[2022-01-03] MEDS: PIPERACILLIN/TAZOB 3.375 GM 3.375 GM in DEXTROSE 5%-WATER - 50 ML IVPB SCH ×3 (01:00→17:14)
[2022-01-03] MEDS: predniSONE 10 MG TABLET (UD) PO SCH (09:47)
[2022-01-03] MEDS: FUROSEMIDE 20 MG TABLET (FP) PO SCH (09:47)
[2022-01-03] MEDS: TIMOLOL 0.5% OPHTHALMIC SOL 5 ML BOTTLE OU SCH ×2 (09:48→21:53)
[2022-01-03] MEDS: PANTOPRAZOLE 20 MG TABLET PO SCH (09:48)
[2022-01-03] MEDS: TIOTROPIUM BROMIDE 2.5 MCG (SPIRIVA) RESPIMAT INHALER IH SCH (09:48)
[2022-01-03] MEDS: LISINOPRIL 10 MG TABLET PO SCH (09:48)
[2022-01-03] MEDS: BUDESONIDE/FORMETEROL FUMARATE 160/4.5 mcg INHALER IH SCH ×2 (09:48→21:53)
[2022-01-03] MEDS: amLODIPine BESYLATE 10 MG TABLET (FP) PO SCH (09:48)
[2022-01-03] MEDS: ATORVASTATIN CA 20 MG TABLET (FP) PO SCH (21:53)
[2022-01-03] MEDS: LATANOPROST 0.005% OPHTH SOLN 2.5ML BOTTLE OU SCH (21:56)
[2022-01-04] MEDS: KETOROLAC TROMETHAMINE 15 MG/ML VIAL IVPUSH PRN ×2 (00:49→13:07)
[2022-01-04] MEDS: PIPERACILLIN/TAZOB 3.375 GM 3.375 GM in DEXTROSE 5%-WATER - 50 ML IVPB SCH (01:00)
[2022-01-04] MEDS ORDERED: MEROPENEM 1 GM in DEXTROSE 5%-WATER 100 ML IVPB SCH (10:00)
[2022-01-04] MEDS: LISINOPRIL 10 MG TABLET PO SCH (10:53)
[2022-01-04] MEDS: FUROSEMIDE 20 MG TABLET (FP) PO SCH (10:53)
[2022-01-04] MEDS: predniSONE 10 MG TABLET (UD) PO SCH (10:53)
[2022-01-04] MEDS: amLODIPine BESYLATE 10 MG TABLET (FP) PO SCH (10:54)
[2022-01-04] MEDS: PANTOPRAZOLE 20 MG TABLET PO SCH (10:54)
[2022-01-04] MEDS: TIMOLOL 0.5% OPHTHALMIC SOL 5 ML BOTTLE OU SCH (10:55)
[2022-01-04] MEDS: TIOTROPIUM BROMIDE 2.5 MCG (SPIRIVA) RESPIMAT INHALER IH SCH (10:55)
[2022-01-04] MEDS: BUDESONIDE/FORMETEROL FUMARATE 160/4.5 mcg INHALER IH SCH (10:55)
[2022-01-04 15:40] VITALS: BP 140/50; PULSE 101; RESP 19; TEMP 98.1
== END 2022-01-04 15:45 | DRG 603 ==
LOC: JER 12:26 → JERBED 13:36 → J7W 20:18
PROVIDERS: ADMIT Family Medicine; ATTEND Family Medicine
PROC: 0Y9M3ZZ Drainage of Right Foot, Percutaneous Approach (ICD-10-PCS; 2021-12-24)
PROC: 3E10X8Z Irrigation of Skin and Mucous Membranes using Irrigating Substance (ICD-10-PCS; 2021-12-26)
PROC: 0J9Q0ZX Drainage of Right Foot Subcutaneous Tissue and Fascia, Open Approach, Diagnostic (ICD-10-PCS; 2021-12-26)
PROC: 02HV33Z Insertion of Infusion Device into Superior Vena Cava, Percutaneous Approach (ICD-10-PCS; principal; 2022-01-04)
PROC: B518ZZA Fluoroscopy of Superior Vena Cava, Guidance (ICD-10-PCS; 2022-01-04)
DX: L03.115 Cellulitis of right lower limb (principal); K42.0 Umbilical hernia with obstruction, without gangrene; K56.699 Other intestinal obstruction unspecified as to partial versus complete obstruction; I10 Essential (primary) hypertension; J44.9 Chronic obstructive pulmonary disease, unspecified; H40.9 Unspecified glaucoma; B96.5 Pseudomonas (aeruginosa) (mallei) (pseudomallei) as the cause of diseases classified elsewhere; B95.7 Other staphylococcus as the cause of diseases classified elsewhere; R79.89 Other specified abnormal findings of blood chemistry; L08.9 Local infection of the skin and subcutaneous tissue, unspecified; D64.9 Anemia, unspecified; L97.519 Non-pressure chronic ulcer of other part of right foot with unspecified severity; D72.829 Elevated white blood cell count, unspecified; R14.0 Abdominal distension (gaseous); K42.9 Umbilical hernia without obstruction or gangrene; K43.9 Ventral hernia without obstruction or gangrene; N40.0 Benign prostatic hyperplasia without lower urinary tract symptoms
CPT/HCPCS: 36415; 36569; 71045-TC-FY; 73552-TC-RT-FY; 73560-TC-RT-FY; 73590-TC-RT-FY; 73610-TC-RT-FY; 73630-TC-RT-FY; 73718-TC-RT; 74018-TC-FY; 74177-TC; 76705-TC; 78452-TC; 80048; 80053; 81003; 82550; 82607; 82746; 83540; 83550; 83735; 84443; 84484; 85025; 85027; 85610; 85651; 85730; 86140; 86850; 86900; 86901; 87040; 87070; 87086; 87186; 87205; 93005; 93010; 93017; 93306-TC; 93880-TC; 93926-TC; 94640; 94760; 97116-GP; 97161-GP; 99285-25; A9502; C9803-CS; G0480; J2785; U0003; U0005

== ENCOUNTER 2022-10-22 20:38 | Inpatient (IN) | payer OTHER ==
[2022-10-22] MEDS ORDERED: ALBUTEROL SO4 2.5/IPRATROPIUM 0.5 INH SOL 3 ML VIAL.NEB. NEB ONE ×4 (20:57→22:13)
[2022-10-22] MEDS ORDERED: methylPREDNISolone NA SUCC 125 MG/2 ML VIAL IM ONE (21:04)
[2022-10-22] MEDS ORDERED: MAGNESIUM SULF 50% (8.12 MEQ/2 ML-1 GM VIAL) IVPB ONE ×2 (21:04→21:58)
[2022-10-22] MEDS ORDERED: methylPREDNISolone NA SUCC 125 MG/2 ML VIAL ONE (21:30)
[2022-10-22] MEDS ORDERED: MAGNESIUM 1GM/D5W - 1 GM/100 ML IVPB IVPB ONE ×2 (21:31→22:42)
[2022-10-22] MEDS ORDERED: methylPREDNISolone NA SUCC 125 MG/2 ML VIAL IVPUSH ONE (21:31)
[2022-10-22 21:51] LABS: BASO % 1.1 % (0-2.0); EOS % 7.8 % (0-4.5); LYMPH % 10.5 % (8-40); MCH 28.8 pg (25.7-33.7); MCHC 32.6 g/dl (32.0-35.9); MEAN CELL VOLUME 88.4 fl (80-96); MEAN PLT VOLUME 7.9 fl (7.5-11.1); MONO % 7.1 % (3.8-10.2); NEUT % 73.5 % (42.8-82.8); PLATELET COUNT 293 10^3/uL (134-434); RBC 4.86 M/mm3 (4.00-5.60); RDW 14.6 % (11.9-15.9); WHITE BLOOD COUNT 9.3 K/mm3 (4.0-10.0)
[2022-10-22 22:06] LABS: POTASSIUM 3.6 mmol/L (3.5-5.1)
[2022-10-22 22:08] LABS: CALCIUM 9.1 mg/dL (8.5-10.1)
[2022-10-22 22:09] LABS: ALBUMIN 3.7 g/dl (3.4-5.0); BLOOD UREA NITROGEN 10.8 mg/dL (7-18)
[2022-10-22 22:12] LABS: CREATININE 0.9 mg/dL (0.55-1.3)
[2022-10-22 22:13] LABS: BILIRUBIN,TOTAL 0.5 mg/dL (0.2-1)
[2022-10-22 22:14] LABS: TOT PROT 7.2 g/dl (6.4-8.2)
[2022-10-22] MEDS ORDERED: ACETAMINOPHEN 325 MG TABLET (FP) PO PRN (23:18)
[2022-10-22] MEDS ORDERED: DOCUSATE SODIUM 100 MG CAPSULE (FP) PO PRN (23:18)
[2022-10-22] MEDS ORDERED: guaiFENesin 600 MG TABLET.ER (FP) PO ONE (23:30)
[2022-10-23 02:48] LABS: MAGNESIUM 1.8 mg/dL (1.8-2.4)
[2022-10-23 02:52] LABS: PHOSPHOROUS 3.7 mg/dL (2.5-4.9)
[2022-10-23] MEDS ORDERED: ALBUTEROL SO4 2.5/IPRATROPIUM 0.5 INH SOL 3 ML VIAL.NEB. NEB PRN (03:04)
[2022-10-23] MEDS ORDERED: POLYETHYLENE GLYCOL (HEALTHYLAX) 3350 17 GM PACKET PO PRN (03:04)
[2022-10-23] MEDS ORDERED: methylPREDNISolone NA SUCC 40 MG/1 ML VIAL ONE (06:00)
[2022-10-23] MEDS: methylPREDNISolone NA SUCC 40 MG/1 ML VIAL IVPUSH SCH ×3 (06:07→17:34)
[2022-10-23 06:49] LABS: HEMATOCRIT 39.4 % (35.4-49); HEMOGLOBIN 12.9 GM/dL (11.7-16.9); MCH 29.3 pg (25.7-33.7); MCHC 32.7 g/dl (32.0-35.9); MEAN CELL VOLUME 89.7 fl (80-96); MEAN PLT VOLUME 8.6 fl (7.5-11.1); PLATELET COUNT 299 10^3/uL (134-434); RDW 14.2 % (11.9-15.9); WHITE BLOOD COUNT 7.3 K/mm3 (4.0-10.0)
[2022-10-23 07:01] LABS: INR 1.26 (0.83-1.09); POTASSIUM 3.9 mmol/L (3.5-5.1); PROTHROMBIN TIME (PATIENT) 14.6 SEC (9.7-13.0)
[2022-10-23 07:03] LABS: ACTIVATED PTT 36.5 SECONDS (25.2-36.5); CALCIUM 8.9 mg/dL (8.5-10.1)
[2022-10-23 07:04] LABS: BLOOD UREA NITROGEN 10.4 mg/dL (7-18)
[2022-10-23 09:10] LABS: ANISOCYTOSIS 0; MACROCYTOSIS 0
[2022-10-23] MEDS ORDERED: PANTOPRAZOLE 20 MG TABLET PO ONE (09:20)
[2022-10-23] MEDS ORDERED: CHOLECALCIFEROL (VIT D3) 1,000 UNIT (25 MCG) TABLET ONE (09:20)
[2022-10-23] MEDS ORDERED: ASPIRIN 81 MG CHEWABLE TABLETS ONE (09:21)
[2022-10-23] MEDS ORDERED: ENOXAPARIN NA (PORCINE) 40 MG/0.4 ML DISP.SYRIN SQ ONE (09:21)
[2022-10-23] MEDS ORDERED: FUROSEMIDE 20 MG TABLET (FP) ONE (09:21)
[2022-10-23] MEDS ORDERED: ASCORBIC ACID 500 MG TABLET (FP) ONE (09:21)
[2022-10-23] MEDS: ASPIRIN 81 MG CHEWABLE TABLETS PO SCH (09:41)
[2022-10-23] MEDS: PANTOPRAZOLE 20 MG TABLET PO SCH (09:42)
[2022-10-23] MEDS: ENOXAPARIN NA (PORCINE) 40 MG/0.4 ML DISP.SYRIN SQ SCH (09:42)
[2022-10-23] MEDS: FUROSEMIDE 20 MG TABLET (FP) PO SCH (09:42)
[2022-10-23] MEDS: ASCORBIC ACID 500 MG TABLET (FP) PO SCH ×2 (09:42→21:51)
[2022-10-23] MEDS: CHOLECALCIFEROL (VIT D3) 1,000 UNIT (25 MCG) TABLET PO SCH (09:42)
[2022-10-23] MEDS ORDERED: ALBUTEROL SO4 2.5/IPRATROPIUM 0.5 INH SOL 3 ML VIAL.NEB. NEB ONE (10:20)
[2022-10-23] MEDS ORDERED: ALBUTEROL SO4 HFA INHALER IH PRN (12:53)
[2022-10-23 17:00] VITALS: BMI 26.9
[2022-10-23] MEDS: ALBUTEROL SO4 2.5/IPRATROPIUM 0.5 INH SOL 3 ML VIAL.NEB. NEB SCH (20:11)
[2022-10-23] MEDS: MONTELUKAST NA 10 MG TABLET PO SCH (21:51)
[2022-10-23] MEDS: BUDESONIDE/FORMETEROL FUMARATE 160/4.5 mcg INHALER IH SCH (21:51)
[2022-10-24] MEDS: methylPREDNISolone NA SUCC 40 MG/1 ML VIAL IVPUSH SCH ×3 (02:53→17:04)
[2022-10-24] MEDS: guaiFENesin/D-METHORPHAN HB 10 ML UNIT-DOSE CUPS PO PRN (04:20)
[2022-10-24] MEDS: ALBUTEROL SO4 2.5/IPRATROPIUM 0.5 INH SOL 3 ML VIAL.NEB. NEB SCH ×4 (08:25→20:45)
[2022-10-24] MEDS: ENOXAPARIN NA (PORCINE) 40 MG/0.4 ML DISP.SYRIN SQ SCH (09:55)
[2022-10-24] MEDS: ASPIRIN 81 MG CHEWABLE TABLETS PO SCH (09:56)
[2022-10-24] MEDS: BUDESONIDE/FORMETEROL FUMARATE 160/4.5 mcg INHALER IH SCH ×2 (09:56→21:05)
[2022-10-24] MEDS: FUROSEMIDE 20 MG TABLET (FP) PO SCH (09:56)
[2022-10-24] MEDS: PANTOPRAZOLE 20 MG TABLET PO SCH (09:56)
[2022-10-24] MEDS: ASCORBIC ACID 500 MG TABLET (FP) PO SCH ×2 (09:56→21:04)
[2022-10-24] MEDS: CHOLECALCIFEROL (VIT D3) 1,000 UNIT (25 MCG) TABLET PO SCH (09:56)
[2022-10-24] MEDS: MONTELUKAST NA 10 MG TABLET PO SCH (21:04)
[2022-10-25] MEDS: methylPREDNISolone NA SUCC 40 MG/1 ML VIAL IVPUSH SCH ×3 (02:08→21:39)
[2022-10-25 06:02] VITALS: RESP 18
[2022-10-25] MEDS: ALBUTEROL SO4 2.5/IPRATROPIUM 0.5 INH SOL 3 ML VIAL.NEB. NEB SCH ×4 (07:50→19:23)
[2022-10-25] MEDS: guaiFENesin/D-METHORPHAN HB 10 ML UNIT-DOSE CUPS PO PRN (11:21)
[2022-10-25] MEDS: CHOLECALCIFEROL (VIT D3) 1,000 UNIT (25 MCG) TABLET PO SCH (11:21)
[2022-10-25] MEDS: ASCORBIC ACID 500 MG TABLET (FP) PO SCH ×2 (11:22→21:39)
[2022-10-25] MEDS: ASPIRIN 81 MG CHEWABLE TABLETS PO SCH (11:22)
[2022-10-25] MEDS: FUROSEMIDE 20 MG TABLET (FP) PO SCH (11:23)
[2022-10-25] MEDS: PANTOPRAZOLE 20 MG TABLET PO SCH (11:23)
[2022-10-25] MEDS: ENOXAPARIN NA (PORCINE) 40 MG/0.4 ML DISP.SYRIN SQ SCH (11:23)
[2022-10-25] MEDS: BUDESONIDE/FORMETEROL FUMARATE 160/4.5 mcg INHALER IH SCH ×2 (11:24→21:40)
[2022-10-25] MEDS: FLUTICASONE PROP 0.05% 16 GM NASAL SPRAY NS SCH ×2 (13:28→21:43)
[2022-10-25] MEDS: MONTELUKAST NA 10 MG TABLET PO SCH (21:39)
[2022-10-26] MEDS: ALBUTEROL SO4 2.5/IPRATROPIUM 0.5 INH SOL 3 ML VIAL.NEB. NEB SCH ×4 (07:56→20:36)
[2022-10-26] MEDS: FUROSEMIDE 20 MG TABLET (FP) PO SCH (10:34)
[2022-10-26] MEDS: CHOLECALCIFEROL (VIT D3) 1,000 UNIT (25 MCG) TABLET PO SCH (10:34)
[2022-10-26] MEDS: ASPIRIN 81 MG CHEWABLE TABLETS PO SCH (10:34)
[2022-10-26] MEDS: ASCORBIC ACID 500 MG TABLET (FP) PO SCH ×2 (10:34→22:18)
[2022-10-26] MEDS: PANTOPRAZOLE 20 MG TABLET PO SCH (10:34)
[2022-10-26] MEDS: ENOXAPARIN NA (PORCINE) 40 MG/0.4 ML DISP.SYRIN SQ SCH (10:34)
[2022-10-26] MEDS: methylPREDNISolone NA SUCC 40 MG/1 ML VIAL IVPUSH SCH ×2 (10:35→22:18)
[2022-10-26] MEDS: BUDESONIDE/FORMETEROL FUMARATE 160/4.5 mcg INHALER IH SCH ×2 (10:37→22:19)
[2022-10-26] MEDS: FLUTICASONE PROP 0.05% 16 GM NASAL SPRAY NS SCH ×2 (10:38→22:19)
[2022-10-26] MEDS: MONTELUKAST NA 10 MG TABLET PO SCH (22:18)
[2022-10-27] MEDS: ALBUTEROL SO4 2.5/IPRATROPIUM 0.5 INH SOL 3 ML VIAL.NEB. NEB SCH ×2 (07:50→12:21)
[2022-10-27] MEDS: FUROSEMIDE 20 MG TABLET (FP) PO SCH (09:44)
[2022-10-27] MEDS: CHOLECALCIFEROL (VIT D3) 1,000 UNIT (25 MCG) TABLET PO SCH (09:44)
[2022-10-27] MEDS: ENOXAPARIN NA (PORCINE) 40 MG/0.4 ML DISP.SYRIN SQ SCH (09:44)
[2022-10-27] MEDS: PANTOPRAZOLE 20 MG TABLET PO SCH (09:44)
[2022-10-27] MEDS: ASPIRIN 81 MG CHEWABLE TABLETS PO SCH (09:44)
[2022-10-27] MEDS: ASCORBIC ACID 500 MG TABLET (FP) PO SCH (09:44)
[2022-10-27] MEDS: BUDESONIDE/FORMETEROL FUMARATE 160/4.5 mcg INHALER IH SCH (09:45)
[2022-10-27] MEDS: FLUTICASONE PROP 0.05% 16 GM NASAL SPRAY NS SCH (09:45)
[2022-10-27] MEDS: methylPREDNISolone NA SUCC 40 MG/1 ML VIAL IVPUSH SCH (10:48)
[2022-10-27 13:42] VITALS: BP 153/69; PULSE 85; TEMP 98
== END 2022-10-27 14:25 | disposition home health service (06) | DRG 191 ==
LOC: JER 20:38 → JERBED 22:34 → J7W 10-23 14:00
PROVIDERS: ADMIT Internal Medicine; ATTEND Family Medicine
DX: J44.1 Chronic obstructive pulmonary disease with (acute) exacerbation (principal); J45.901 Unspecified asthma with (acute) exacerbation; I10 Essential (primary) hypertension; D72.10 Eosinophilia, unspecified; R09.02 Hypoxemia
CPT/HCPCS: 0241U-QW; 36415; 71045-TC-FY; 80048; 80053; 82962; 83735; 84100; 84484; 85025; 85610; 85730; 93005; 93010; 94640; 94761; 97116-GP; 97161-GP; 99285-25

== ENCOUNTER 2023-03-26 01:43 | Inpatient (IN) | payer OTHER ==
[2023-03-26] MEDS ORDERED: methylPREDNISolone NA SUCC 125 MG/2 ML VIAL IVPUSH ONE (02:12)
[2023-03-26 02:43] LABS: EPI CELLS 4 /uL (0-25.1); HYALINE CASTS 0 /uL (0-3.1); URINE APPEARANCE CLEAR; URINE BACTERIA 6 /uL (0-1359); URINE BILIRUBIN NEGATIVE (NEGATIVE); URINE COLOR YELLOW; URINE GLUCOSE (UA) NEGATIVE (NEGATIVE); URINE KETONE TRACE (NEGATIVE); URINE LEUK ESTERASE NEGATIVE (NEGATIVE); URINE NITRITE NEGATIVE (NEGATIVE); URINE PROTEIN 3+ (NEGATIVE); URINE RBC 16 /uL (0-23.9); URINE UROBILINOGEN 0.2 mg/dL (0.2-1.0); URINE WBC 9 /uL (0-25.8)
[2023-03-26] MEDS ORDERED: methylPREDNISolone NA SUCC 125 MG/2 ML VIAL ONE (03:04)
[2023-03-26] MEDS: ALBUTEROL SO4 2.5/IPRATROPIUM 0.5 INH SOL 3 ML VIAL.NEB. NEB SCH ×2 (03:10→03:13)
[2023-03-26 04:03] LABS: BASO % 0.6 % (0-2.0); EOS % 3.3 % (0-4.5); HEMATOCRIT 45.1 % (35.4-49); HEMOGLOBIN 15.1 GM/dL (11.7-16.9); LYMPH % 5.1 % (8-40); MCHC 33.5 g/dl (32.0-35.9); MEAN CELL VOLUME 89.5 fl (80-96); MEAN PLT VOLUME 8.8 fl (7.5-11.1); MONO % 2.7 % (3.8-10.2); NEUT % 88.3 % (42.8-82.8); PLATELET COUNT 288 10^3/uL (134-434); RBC 5.04 M/mm3 (4.00-5.60); RDW 14.9 % (11.9-15.9); WHITE BLOOD COUNT 10.4 K/mm3 (4.0-10.0)
[2023-03-26 04:04] LABS: INR 1.24 (0.83-1.09); PROTHROMBIN TIME (PATIENT) 14.3 SEC (9.7-13.0)
[2023-03-26 04:07] LABS: ACTIVATED PTT 33.8 SECONDS (25.2-36.5); ALBUMIN 3.9 g/dl (3.4-5.0); CALCIUM 8.7 mg/dL (8.5-10.1); MAGNESIUM 1.9 mg/dL (1.8-2.4)
[2023-03-26 04:10] LABS: PHOSPHOROUS 3.3 mg/dL (2.5-4.9)
[2023-03-26 04:12] LABS: BILIRUBIN,TOTAL 0.6 mg/dL (0.2-1); TOT PROT 7.3 g/dl (6.4-8.2)
[2023-03-26] MEDS ORDERED: ACETAMINOPHEN 325 MG TABLET (FP) PO PRN (05:21)
[2023-03-26] MEDS ORDERED: ALBUTEROL SO4 2.5/IPRATROPIUM 0.5 INH SOL 3 ML VIAL.NEB. NEB PRN (05:27)
[2023-03-26] MEDS ORDERED: POLYETHYLENE GLYCOL (HEALTHYLAX) 3350 17 GM PACKET PO PRN (06:01)
[2023-03-26] MEDS ORDERED: DIPHTH,PERTUSS(ACELL),TET 0.5 ML DISP.SYRIN IM ONE ×2 (06:59→10:28)
[2023-03-26] MEDS ORDERED: guaiFENesin/D-METHORPHAN HB 10 ML UNIT-DOSE CUPS PO PRN (06:59)
[2023-03-26] MEDS ORDERED: LORATADINE 10 MG TABLET ONE (09:22)
[2023-03-26] MEDS: TIMOLOL 0.5% OPHTHALMIC SOL 5 ML BOTTLE OU SCH ×3 (09:38→22:53)
[2023-03-26] MEDS: ARTIFICIAL TEARS OPHTHALMIC DROPS OU SCH ×3 (09:38→22:53)
[2023-03-26] MEDS: LORATADINE 10 MG TABLET PO SCH (09:38)
[2023-03-26] MEDS: methylPREDNISolone NA SUCC 40 MG/1 ML VIAL IVPUSH SCH ×2 (09:38→19:40)
[2023-03-26] MEDS: ASCORBIC ACID 500 MG TABLET (FP) PO SCH ×2 (09:38→22:50)
[2023-03-26] MEDS: CHOLECALCIFEROL (VIT D3) 1,000 UNIT (25 MCG) TABLET PO SCH (09:38)
[2023-03-26] MEDS ORDERED: LISINOPRIL 10 MG TABLET ONE (14:09)
[2023-03-26] MEDS: LISINOPRIL 10 MG TABLET PO SCH (14:14)
[2023-03-26] MEDS ORDERED: methylPREDNISolone NA SUCC 40 MG/1 ML VIAL ONE (19:35)
[2023-03-26 21:45] VITALS: BMI 25.9
[2023-03-26] MEDS: MONTELUKAST NA 10 MG TABLET PO SCH (22:51)
[2023-03-26] MEDS: LATANOPROST 0.005% OPHTH SOLN 2.5ML BOTTLE OU SCH (22:53)
[2023-03-27] MEDS: methylPREDNISolone NA SUCC 40 MG/1 ML VIAL IVPUSH SCH ×3 (01:13→17:02)
[2023-03-27 06:53] LABS: HEMATOCRIT 41.3 % (35.4-49); HEMOGLOBIN 13.5 GM/dL (11.7-16.9); MCH 29.2 pg (25.7-33.7); MCHC 32.6 g/dl (32.0-35.9); MEAN CELL VOLUME 89.6 fl (80-96); MEAN PLT VOLUME 8.3 fl (7.5-11.1); PLATELET COUNT 266 10^3/uL (134-434); RBC 4.61 M/mm3 (4.00-5.60); RDW 14.7 % (11.9-15.9); WHITE BLOOD COUNT 14.2 K/mm3 (4.0-10.0)
[2023-03-27 07:13] LABS: POTASSIUM 4.4 mmol/L (3.5-5.1)
[2023-03-27 07:15] LABS: BLOOD UREA NITROGEN 37.9 mg/dL (7-18); CALCIUM 8.6 mg/dL (8.5-10.1)
[2023-03-27 07:19] LABS: CREATININE 1.5 mg/dL (0.55-1.3)
[2023-03-27] MEDS: LORATADINE 10 MG TABLET PO SCH (09:35)
[2023-03-27] MEDS: ASCORBIC ACID 500 MG TABLET (FP) PO SCH ×2 (09:35→22:37)
[2023-03-27] MEDS: CHOLECALCIFEROL (VIT D3) 1,000 UNIT (25 MCG) TABLET PO SCH (09:35)
[2023-03-27 09:41] LABS: ANISOCYTOSIS 0; HELMET CELLS 0; HOWELL-JOLLY BODIES 0; MACROCYTOSIS 0; OVALOCYTE 0; ROULEAU 0; SICKELED CELLS 0; TARGET CELLS 0; TEAR DROP CELLS 0; TOXIC GRANULATION 0
[2023-03-27 09:51] VITALS: RESP 18
[2023-03-27] MEDS ORDERED: FLU VACCINE (FLULAVAL) PF 60 MCG/0.5 ML SYRINGE 2023-2024 IM ONE (10:00)
[2023-03-27] MEDS: TIMOLOL 0.5% OPHTHALMIC SOL 5 ML BOTTLE OU SCH ×3 (11:02→22:37)
[2023-03-27] MEDS: ARTIFICIAL TEARS OPHTHALMIC DROPS OU SCH ×3 (11:02→22:37)
[2023-03-27] MEDS: LISINOPRIL 10 MG TABLET PO SCH (11:04)
[2023-03-27] MEDS ORDERED: SODIUM CHLORIDE 0.45% 1,000 ML IV SCH (12:15)
[2023-03-27] MEDS: ALBUTEROL SO4 2.5/IPRATROPIUM 0.5 INH SOL 3 ML VIAL.NEB. NEB SCH ×2 (16:40→21:25)
[2023-03-27] MEDS: LATANOPROST 0.005% OPHTH SOLN 2.5ML BOTTLE OU SCH (22:00)
[2023-03-27] MEDS: MONTELUKAST NA 10 MG TABLET PO SCH (22:37)
[2023-03-28] MEDS: ALBUTEROL SO4 2.5/IPRATROPIUM 0.5 INH SOL 3 ML VIAL.NEB. NEB SCH ×6 (00:41→20:20)
[2023-03-28] MEDS: methylPREDNISolone NA SUCC 40 MG/1 ML VIAL IVPUSH SCH ×3 (02:00→17:54)
[2023-03-28] MEDS: TIMOLOL 0.5% OPHTHALMIC SOL 5 ML BOTTLE OU SCH ×2 (10:29→21:41)
[2023-03-28] MEDS: ASCORBIC ACID 500 MG TABLET (FP) PO SCH ×2 (10:31→21:38)
[2023-03-28] MEDS: LISINOPRIL 10 MG TABLET PO SCH (10:31)
[2023-03-28] MEDS: CHOLECALCIFEROL (VIT D3) 1,000 UNIT (25 MCG) TABLET PO SCH (10:31)
[2023-03-28 11:26] LABS: POTASSIUM 3.9 mmol/L (3.5-5.1)
[2023-03-28 11:27] LABS: CALCIUM 7.9 mg/dL (8.5-10.1)
[2023-03-28 11:28] LABS: BLOOD UREA NITROGEN 39.9 mg/dL (7-18)
[2023-03-28 11:31] LABS: CREATININE 1.1 mg/dL (0.55-1.3)
[2023-03-28] MEDS: ARTIFICIAL TEARS OPHTHALMIC DROPS OU SCH (12:28)
[2023-03-28] MEDS: MONTELUKAST NA 10 MG TABLET PO SCH (21:38)
[2023-03-29] MEDS: ALBUTEROL SO4 2.5/IPRATROPIUM 0.5 INH SOL 3 ML VIAL.NEB. NEB SCH ×6 (00:35→21:57)
[2023-03-29] MEDS: ARTIFICIAL TEARS OPHTHALMIC DROPS OU SCH ×2 (03:22→10:47)
[2023-03-29] MEDS: methylPREDNISolone NA SUCC 40 MG/1 ML VIAL IVPUSH SCH (03:22)
[2023-03-29] MEDS: LATANOPROST 0.005% OPHTH SOLN 2.5ML BOTTLE OU SCH (03:22)
[2023-03-29 07:00] LABS: HEMATOCRIT 44.1 % (35.4-49); HEMOGLOBIN 14.4 GM/dL (11.7-16.9); MCH 29.3 pg (25.7-33.7); MCHC 32.7 g/dl (32.0-35.9); MEAN CELL VOLUME 89.7 fl (80-96); MEAN PLT VOLUME 9.2 fl (7.5-11.1); PLATELET COUNT 236 10^3/uL (134-434); RBC 4.91 M/mm3 (4.00-5.60); RDW 14.6 % (11.9-15.9); WHITE BLOOD COUNT 13.8 K/mm3 (4.0-10.0)
[2023-03-29 07:18] LABS: POTASSIUM 3.8 mmol/L (3.5-5.1)
[2023-03-29 07:24] LABS: BLOOD UREA NITROGEN 35.2 mg/dL (7-18); CALCIUM 7.8 mg/dL (8.5-10.1)
[2023-03-29 07:27] LABS: CREATININE 1.1 mg/dL (0.55-1.3)
[2023-03-29 07:28] LABS: BILIRUBIN,TOTAL 0.4 mg/dL (0.2-1)
[2023-03-29 07:29] LABS: TOT PROT 5.9 g/dl (6.4-8.2)
[2023-03-29 07:31] LABS: ALBUMIN 3.1 g/dl (3.4-5.0)
[2023-03-29 08:38] LABS: ANISOCYTOSIS 0; MACROCYTOSIS 0
[2023-03-29] MEDS: PANTOPRAZOLE 20 MG TABLET PO SCH (10:43)
[2023-03-29] MEDS: ASCORBIC ACID 500 MG TABLET (FP) PO SCH (10:43)
[2023-03-29] MEDS: LISINOPRIL 10 MG TABLET PO SCH (10:43)
[2023-03-29] MEDS: predniSONE 10 MG TABLET (UD) PO SCH ×2 (10:44→22:11)
[2023-03-29] MEDS: FUROSEMIDE 20 MG TABLET (FP) PO SCH (10:44)
[2023-03-29] MEDS: CHOLECALCIFEROL (VIT D3) 1,000 UNIT (25 MCG) TABLET PO SCH (10:44)
[2023-03-29] MEDS: amLODIPine BESYLATE 10 MG TABLET (FP) PO SCH (10:44)
[2023-03-29] MEDS: ASPIRIN 81 MG CHEWABLE TABLETS PO SCH (10:44)
[2023-03-29] MEDS: TIMOLOL 0.5% OPHTHALMIC SOL 5 ML BOTTLE OU SCH (10:48)
[2023-03-29] MEDS: BUDESONIDE/FORMETEROL FUMARATE 160/4.5 mcg INHALER IH SCH (11:41)
[2023-03-29] MEDS: FLUTICASONE PROP 0.05% 16 GM NASAL SPRAY NS SCH (11:41)
[2023-03-29] MEDS ORDERED: ATORVASTATIN CA 20 MG TABLET (FP) PO SCH (22:00)
[2023-03-29] MEDS: MONTELUKAST NA 10 MG TABLET PO SCH (22:11)
[2023-03-30] MEDS: ARTIFICIAL TEARS OPHTHALMIC DROPS OU SCH ×2 (00:03→09:51)
[2023-03-30] MEDS: FLUTICASONE PROP 0.05% 16 GM NASAL SPRAY NS SCH ×2 (00:04→09:51)
[2023-03-30] MEDS: TIMOLOL 0.5% OPHTHALMIC SOL 5 ML BOTTLE OU SCH ×2 (00:05→09:51)
[2023-03-30] MEDS: BUDESONIDE/FORMETEROL FUMARATE 160/4.5 mcg INHALER IH SCH ×2 (00:05→09:50)
[2023-03-30] MEDS: LATANOPROST 0.005% OPHTH SOLN 2.5ML BOTTLE OU SCH (00:06)
[2023-03-30] MEDS: ASCORBIC ACID 500 MG TABLET (FP) PO SCH ×2 (00:06→09:53)
[2023-03-30] MEDS: ALBUTEROL SO4 2.5/IPRATROPIUM 0.5 INH SOL 3 ML VIAL.NEB. NEB SCH ×4 (00:18→11:51)
[2023-03-30 03:58] VITALS: TEMP 98
[2023-03-30] MEDS: predniSONE 10 MG TABLET (UD) PO SCH (09:52)
[2023-03-30] MEDS: LISINOPRIL 10 MG TABLET PO SCH (09:53)
[2023-03-30] MEDS: PANTOPRAZOLE 20 MG TABLET PO SCH (09:53)
[2023-03-30] MEDS: amLODIPine BESYLATE 10 MG TABLET (FP) PO SCH (09:53)
[2023-03-30] MEDS: FUROSEMIDE 20 MG TABLET (FP) PO SCH (09:53)
[2023-03-30] MEDS: CHOLECALCIFEROL (VIT D3) 1,000 UNIT (25 MCG) TABLET PO SCH (09:53)
[2023-03-30] MEDS: ASPIRIN 81 MG CHEWABLE TABLETS PO SCH (09:53)
[2023-03-30 11:53] VITALS: BP 132/60; PULSE 78
== END 2023-03-30 14:00 | disposition home or self-care (01) | DRG 191 ==
LOC: JER 01:43 → JERBED 05:58 → J4W 20:00 → OBSVTOIN 03-27 10:06
PROVIDERS: ADMIT Internal Medicine; ATTEND Family Medicine
DX: J44.1 Chronic obstructive pulmonary disease with (acute) exacerbation (principal); I24.89 Other forms of acute ischemic heart disease; J45.901 Unspecified asthma with (acute) exacerbation; I10 Essential (primary) hypertension; N40.0 Benign prostatic hyperplasia without lower urinary tract symptoms
CPT/HCPCS: 0241U-QW; 36415; 71046-TC-FY; 76775-TC; 80048; 80053; 81003; 82570; 82962; 83735; 83880; 84100; 84156; 84484; 85025; 85610; 85730; 87086; 90686; 90715; 93005; 93010; 94640; 97116-GP; 97161-GP; 99285-25; G0008; G0378

== ENCOUNTER 2023-09-16 20:13 | Observation (INO) | payer OTHER ==
[2023-09-16] MEDS ORDERED: methylPREDNISolone NA SUCC 125 MG/2 ML VIAL ONE (21:02)
[2023-09-16] MEDS ORDERED: MAGNESIUM SULFATE IN WATER 2 GM/50 ML IVPB IVPB ONE (21:02)
[2023-09-16] MEDS: methylPREDNISolone NA SUCC 125 MG/2 ML VIAL IVPB ONE (21:05)
[2023-09-16] MEDS: ALBUTEROL SO4 2.5/IPRATROPIUM 0.5 INH SOL 3 ML VIAL.NEB. NEB SCH (21:05)
[2023-09-16] MEDS: MAGNESIUM SULFATE IN WATER 2 GM/50 ML IVPB IVPB ONE (21:25)
[2023-09-16 21:55] LABS: HEMATOCRIT 42.6 % (35.4-49); HEMOGLOBIN 14.3 GM/dL (11.7-16.9); MCH 30.7 pg (25.7-33.7); MCHC 33.7 g/dl (32.0-35.9); MEAN PLT VOLUME 8.1 fl (7.5-11.1); PLATELET COUNT 276 10^3/uL (134-434); RBC 4.68 M/mm3 (4.00-5.60); RDW 13.8 % (11.9-15.9); WHITE BLOOD COUNT 10.6 K/mm3 (4.0-10.0)
[2023-09-16 21:58] LABS: VENOUS O2 SATURATION 89.2 % (70-80); VENOUS PCO2 39.1 mmHg (38-52); VENOUS PH 7.413 (7.310-7.410)
[2023-09-16 22:07] LABS: INR 1.19 (0.83-1.09); PROTHROMBIN TIME (PATIENT) 13.4 SEC (9.7-13.0)
[2023-09-16 22:10] LABS: ACTIVATED PTT 33.4 SECONDS (25.2-36.5)
[2023-09-16 22:16] LABS: POTASSIUM 3.7 mmol/L (3.5-5.1)
[2023-09-16 22:21] LABS: ALBUMIN 3.6 g/dl (3.4-5.0); BLOOD UREA NITROGEN 18.3 mg/dL (7-18); CALCIUM 9.3 mg/dL (8.5-10.1)
[2023-09-16 22:26] LABS: BILIRUBIN,TOTAL 0.6 mg/dL (0.2-1); TOT PROT 6.8 g/dl (6.4-8.2)
[2023-09-16 23:19] LABS: ANISOCYTOSIS 1+; MACROCYTOSIS 0; PLATELET ESTIMATE NORMAL
[2023-09-16] MEDS ORDERED: CEFTRIAXONE 1 GM/50 ML BAG ONE (23:19)
[2023-09-16] MEDS ORDERED: AZITHROMYCIN IVPB 500 MG/250 ML BAG IVPB ONE (23:20)
[2023-09-16] MEDS: CEFTRIAXONE 1,000 MG in DEXTROSE 5%-WATER - 50 ML IVPB ONE (23:31)
[2023-09-17] MEDS: AZITHROMYCIN IVPB 500 MG in DEXTROSE 5%-WATER - 250 ML IVPB ONE (01:09)
[2023-09-17] MEDS ORDERED: SODIUM CHLORIDE NASAL SPRAY 44 ML BOTTLE NS PRN (01:20)
[2023-09-17] MEDS: guaiFENesin 200 MG/10 ML 10 ML UNIT-DOSE CUPS PO PRN (01:43)
[2023-09-17] MEDS: methylPREDNISolone NA SUCC 40 MG/1 ML VIAL IVPUSH SCH (05:54)
[2023-09-17 08:14] LABS: HEMATOCRIT 41.4 % (35.4-49); HEMOGLOBIN 14.2 GM/dL (11.7-16.9); MCHC 34.3 g/dl (32.0-35.9); MEAN CELL VOLUME 90.2 fl (80-96); MEAN PLT VOLUME 8.4 fl (7.5-11.1); PLATELET COUNT 294 10^3/uL (134-434); RBC 4.59 M/mm3 (4.00-5.60); RDW 13.6 % (11.9-15.9); WHITE BLOOD COUNT 7.8 K/mm3 (4.0-10.0)
[2023-09-17] MEDS: ALBUTEROL SO4 2.5/IPRATROPIUM 0.5 INH SOL 3 ML VIAL.NEB. NEB SCH (08:15)
[2023-09-17 08:34] LABS: POTASSIUM 4.1 mmol/L (3.5-5.1)
[2023-09-17 08:37] LABS: CALCIUM 8.7 mg/dL (8.5-10.1)
[2023-09-17 08:38] LABS: BLOOD UREA NITROGEN 18.2 mg/dL (7-18)
[2023-09-17 08:41] LABS: CREATININE 0.9 mg/dL (0.55-1.3)
[2023-09-17 10:03] LABS: ANISOCYTOSIS 1+; MACROCYTOSIS 0
[2023-09-17] MEDS ORDERED: DOCUSATE SODIUM 100 MG CAPSULE (FP) PO PRN (10:22)
[2023-09-17] MEDS: VALSARTAN 80 MG TABLET PO SCH (10:48)
[2023-09-17] MEDS: TAMSULOSIN HCL 0.4 MG CAP PO SCH (10:48)
[2023-09-17] MEDS: TIMOLOL 0.5% OPHTHALMIC SOL 5 ML BOTTLE OU SCH ×2 (10:48→11:08)
[2023-09-17] MEDS: amLODIPine BESYLATE 10 MG TABLET (FP) PO SCH (10:49)
[2023-09-17] MEDS: AZITHROMYCIN IVPB 500 MG/250 ML BAG IVPB SCH (10:49)
[2023-09-17] MEDS: PANTOPRAZOLE 20 MG TABLET PO SCH (11:08)
[2023-09-17] MEDS: FLUTICASONE/UMECLIDIN/VILANTER(200-62.5-25 TRELEGY ELLIPTA) INAHLER IH SCH (16:24)
[2023-09-17] MEDS: CEFTRIAXONE 1 GM in DEXTROSE 5%-WATER - 50 ML IVPB SCH (21:28)
[2023-09-17] MEDS: ATORVASTATIN CA 20 MG TABLET (FP) PO SCH (21:28)
[2023-09-17] MEDS: MONTELUKAST NA 10 MG TABLET PO SCH (21:28)
[2023-09-17] MEDS: LATANOPROST 0.005% OPHTH SOLN 2.5ML BOTTLE OU SCH (21:30)
[2023-09-17] MEDS ORDERED: LATANOPROST 0.005% OPHTH SOLN 2.5ML BOTTLE OU SCH (22:00)
[2023-09-17] MEDS ORDERED: MONTELUKAST NA 10 MG TABLET PO SCH (22:00)
[2023-09-18 08:18] LABS: HEMATOCRIT 38.9 % (35.4-49); HEMOGLOBIN 13.2 GM/dL (11.7-16.9); MCH 31.1 pg (25.7-33.7); MCHC 34.1 g/dl (32.0-35.9); MEAN CELL VOLUME 91.3 fl (80-96); MEAN PLT VOLUME 8.7 fl (7.5-11.1); PLATELET COUNT 286 10^3/uL (134-434); RBC 4.26 M/mm3 (4.00-5.60); RDW 13.7 % (11.9-15.9); WHITE BLOOD COUNT 13.7 K/mm3 (4.0-10.0)
[2023-09-18 08:28] LABS: POTASSIUM 4.7 mmol/L (3.5-5.1)
[2023-09-18 08:36] LABS: CALCIUM 9.1 mg/dL (8.5-10.1)
[2023-09-18 08:37] LABS: ALBUMIN 3.4 g/dl (3.4-5.0); BLOOD UREA NITROGEN 42.1 mg/dL (7-18)
[2023-09-18 08:39] LABS: CREATININE 1.3 mg/dL (0.55-1.3)
[2023-09-18 08:40] LABS: BILIRUBIN,TOTAL 0.3 mg/dL (0.2-1)
[2023-09-18 09:23] LABS: ANISOCYTOSIS 0; MACROCYTOSIS 0
[2023-09-18] MEDS: FUROSEMIDE 20 MG TABLET (FP) PO SCH (09:51)
[2023-09-18] MEDS: ASPIRIN 81 MG CHEWABLE TABLETS PO SCH (09:51)
[2023-09-18] MEDS ORDERED: LISINOPRIL 10 MG TABLET PO SCH (10:00)
[2023-09-19] MEDS: BUDESONIDE/FORMETEROL FUMARATE 160/4.5 mcg INHALER IH SCH (08:44)
[2023-09-19] MEDS: CEFTRIAXONE 1 GM in DEXTROSE 5%-WATER - 50 ML IVPB SCH (08:45)
[2023-09-19] MEDS: TIOTROPIUM BROMIDE 2.5 MCG (SPIRIVA) RESPIMAT INHALER IH SCH (08:45)
[2023-09-19 16:08] VITALS: BMI 26.4
[2023-09-20 08:35] LABS: HEMATOCRIT 42.9 % (35.4-49); HEMOGLOBIN 14.2 GM/dL (11.7-16.9); MCH 30.1 pg (25.7-33.7); MCHC 33.1 g/dl (32.0-35.9); MEAN PLT VOLUME 8.5 fl (7.5-11.1); PLATELET COUNT 300 10^3/uL (134-434); RBC 4.72 M/mm3 (4.00-5.60); RDW 13.8 % (11.9-15.9); WHITE BLOOD COUNT 12.8 K/mm3 (4.0-10.0)
[2023-09-20 08:55] LABS: POTASSIUM 4.2 mmol/L (3.5-5.1)
[2023-09-20 08:57] LABS: CALCIUM 8.5 mg/dL (8.5-10.1)
[2023-09-20 08:58] LABS: ALBUMIN 3.4 g/dl (3.4-5.0); BLOOD UREA NITROGEN 39.5 mg/dL (7-18)
[2023-09-20 09:01] LABS: CREATININE 1.2 mg/dL (0.55-1.3)
[2023-09-20 09:02] LABS: BILIRUBIN,TOTAL 0.3 mg/dL (0.2-1)
[2023-09-20 10:37] LABS: ANISOCYTOSIS 0; MACROCYTOSIS 0
[2023-09-22] MEDS: predniSONE 20 MG TABLET (UD) PO SCH (09:40)
[2023-09-22] MEDS ORDERED: methylPREDNISolone NA SUCC 40 MG/1 ML VIAL IVPUSH SCH (10:00)
[2023-09-22 13:43] VITALS: BP 142/61; PULSE 85; RESP 20; TEMP 97.7
== END 2023-09-22 15:11 | disposition home or self-care (01) ==
LOC: JER 20:13 → JERBED 23:44 → J7W 09-17 04:20
PROVIDERS: ADMIT Internal Medicine; ATTEND Internal Medicine
PROC: 3E0F7GC Introduction of Other Therapeutic Substance into Respiratory Tract, Via Natural or Artificial Opening (ICD-10-PCS; principal; 2023-09-16)
PROC: 3E03329 Introduction of Other Anti-infective into Peripheral Vein, Percutaneous Approach (ICD-10-PCS; 2023-09-16)
PROC: 3E033GC Introduction of Other Therapeutic Substance into Peripheral Vein, Percutaneous Approach (ICD-10-PCS; 2023-09-16)
DX: J44.1 Chronic obstructive pulmonary disease with (acute) exacerbation (principal); I10 Essential (primary) hypertension; H40.9 Unspecified glaucoma; I73.9 Peripheral vascular disease, unspecified
CPT/HCPCS: 0241U-QW; 36415; 71045-TC-FY; 74230-TC-FY; 80048; 80053; 82803; 84484; 85025; 85610; 85730; 87040; 92611-GN; 93005; 93010; 94640; 96365; 96367; 96375; 99285-25; G0378

== ENCOUNTER 2023-11-07 00:59 | Inpatient (IN) | payer OTHER ==
[2023-11-07 01:08] VITALS: BMI 25.0
[2023-11-07] MEDS ORDERED: ALBUTEROL SO4 2.5/IPRATROPIUM 0.5 INH SOL 3 ML VIAL.NEB. NEB ONE (01:08)
[2023-11-07] MEDS: ALBUTEROL SO4 2.5/IPRATROPIUM 0.5 INH SOL 3 ML VIAL.NEB. NEB ONE (01:09)
[2023-11-07] MEDS ORDERED: MAGNESIUM SULFATE IN WATER 2 GM/50 ML IVPB IVPB ONE (01:09)
[2023-11-07] MEDS: MAGNESIUM SULF 50% (8.12 MEQ/2 ML-1 GM VIAL) IVPB ONE (01:17)
[2023-11-07 01:34] LABS: VENOUS BASE EXCESS -1.7 mmol/L (-2-2); VENOUS PCO2 39.8 mmHg (38-52); VENOUS PH 7.383 (7.310-7.410)
[2023-11-07 01:56] LABS: POTASSIUM 3.9 mmol/L (3.5-5.1)
[2023-11-07 01:58] LABS: CALCIUM 8.4 mg/dL (8.5-10.1)
[2023-11-07 01:59] LABS: ALBUMIN 3.7 g/dl (3.4-5.0); BLOOD UREA NITROGEN 15.4 mg/dL (7-18); MAGNESIUM 4.3 mg/dL (1.8-2.4)
[2023-11-07 02:02] LABS: CREATININE 0.9 mg/dL (0.55-1.3)
[2023-11-07 02:03] LABS: BILIRUBIN,TOTAL 0.7 mg/dL (0.2-1)
[2023-11-07 02:04] LABS: TOT PROT 6.8 g/dl (6.4-8.2)
[2023-11-07 02:24] LABS: BASO % 0.4 % (0-2.0); EOS % 4.1 % (0-4.5); HEMATOCRIT 43.1 % (35.4-49); HEMOGLOBIN 14.2 GM/dL (11.7-16.9); MCH 30.2 pg (25.7-33.7); MEAN CELL VOLUME 91.6 fl (80-96); MONO % 2.2 % (3.8-10.2); NEUT % 88.3 % (42.8-82.8); PLATELET COUNT 206 10^3/uL (134-434); RDW 14.7 % (11.9-15.9); WHITE BLOOD COUNT 13.3 K/mm3 (4.0-10.0)
[2023-11-07] MEDS ORDERED: POLYETHYLENE GLYCOL (HEALTHYLAX) 3350 17 GM PACKET PO PRN (05:50)
[2023-11-07] MEDS ORDERED: ARTIFICIAL TEARS OPHTHALMIC DROPS OU PRN (05:50)
[2023-11-07] MEDS: ALBUTEROL SO4 2.5/IPRATROPIUM 0.5 INH SOL 3 ML VIAL.NEB. NEB SCH (08:10)
[2023-11-07] MEDS ORDERED: ALBUTEROL SO4 2.5/IPRATROPIUM 0.5 INH SOL 3 ML VIAL.NEB. NEB PRN (09:08)
[2023-11-07] MEDS ORDERED: TIOTROPIUM BROMIDE 2.5 MCG (SPIRIVA) RESPIMAT INHALER IH SCH (10:00)
[2023-11-07] MEDS: LOSARTAN POTASSIUM 50 MG TABLET PO SCH (11:36)
[2023-11-07] MEDS: FUROSEMIDE 20 MG TABLET (FP) PO SCH (11:36)
[2023-11-07] MEDS: LISINOPRIL 10 MG TABLET PO SCH (11:36)
[2023-11-07] MEDS: CHOLECALCIFEROL (VIT D3) 1,000 UNIT (25 MCG) TABLET PO SCH (11:36)
[2023-11-07] MEDS: ASCORBIC ACID 500 MG TABLET (FP) PO SCH (11:36)
[2023-11-07] MEDS: PANTOPRAZOLE 20 MG TABLET PO SCH (11:36)
[2023-11-07] MEDS: ASPIRIN 81 MG CHEWABLE TABLETS PO SCH (11:36)
[2023-11-07] MEDS: methylPREDNISolone NA SUCC 40 MG/1 ML VIAL IVPUSH SCH (11:36)
[2023-11-07] MEDS: ENOXAPARIN NA (PORCINE) 40 MG/0.4 ML DISP.SYRIN SQ SCH (11:44)
[2023-11-07] MEDS: guaiFENesin/D-METHORPHAN HB 10 ML UNIT-DOSE CUPS PO SCH (12:09)
[2023-11-07] MEDS ORDERED: guaiFENesin/D-METHORPHAN HB 5 ML UNIT-DOSE CUPS PO SCH (12:15)
[2023-11-07] MEDS: BUDESONIDE/FORMETEROL FUMARATE 160/4.5 mcg INHALER IH SCH (13:46)
[2023-11-07] MEDS: TIMOLOL 0.5% OPHTHALMIC SOL 5 ML BOTTLE OU SCH (13:48)
[2023-11-07] MEDS: MONTELUKAST NA 10 MG TABLET PO SCH (21:30)
[2023-11-07] MEDS: LATANOPROST 0.005% OPHTH SOLN 2.5ML BOTTLE OU SCH (22:17)
[2023-11-08 10:41] LABS: HEMATOCRIT 40.2 % (35.4-49); HEMOGLOBIN 13.5 GM/dL (11.7-16.9); MCH 30.5 pg (25.7-33.7); MCHC 33.6 g/dl (32.0-35.9); MEAN PLT VOLUME 8.5 fl (7.5-11.1); PLATELET COUNT 220 10^3/uL (134-434); RBC 4.42 M/mm3 (4.00-5.60); RDW 14.6 % (11.9-15.9); WHITE BLOOD COUNT 15.4 K/mm3 (4.0-10.0)
[2023-11-08 11:03] LABS: POTASSIUM 4.3 mmol/L (3.5-5.1)
[2023-11-08 11:06] LABS: CALCIUM 8.5 mg/dL (8.5-10.1)
[2023-11-08 11:10] LABS: CREATININE 1.3 mg/dL (0.55-1.3)
[2023-11-08 11:12] LABS: BLOOD UREA NITROGEN 45.3 mg/dL (7-18)
[2023-11-08 11:35] LABS: PLATELET ESTIMATE ADEQUATE
[2023-11-08] MEDS: ACETAMINOPHEN 325 MG TABLET (FP) PO PRN (21:34)
[2023-11-10 10:15] LABS: HEMATOCRIT 40.3 % (35.4-49); HEMOGLOBIN 13.7 GM/dL (11.7-16.9); MCH 30.9 pg (25.7-33.7); MCHC 34.1 g/dl (32.0-35.9); MEAN CELL VOLUME 90.6 fl (80-96); MEAN PLT VOLUME 8.9 fl (7.5-11.1); PLATELET COUNT 197 10^3/uL (134-434); RBC 4.45 M/mm3 (4.00-5.60); RDW 14.3 % (11.9-15.9); WHITE BLOOD COUNT 11.8 K/mm3 (4.0-10.0)
[2023-11-10 10:26] LABS: CALCIUM 7.8 mg/dL (8.5-10.1)
[2023-11-10 10:27] LABS: BLOOD UREA NITROGEN 34.8 mg/dL (7-18)
[2023-11-10 10:30] LABS: CREATININE 1.1 mg/dL (0.55-1.3)
[2023-11-10 10:31] LABS: TOT PROT 5.7 g/dl (6.4-8.2)
[2023-11-10 11:35] LABS: ANISOCYTOSIS 0; BILIRUBIN,TOTAL 0.4 mg/dL (0.2-1); MACROCYTOSIS 0
[2023-11-10] MEDS: methylPREDNISolone NA SUCC 40 MG/1 ML VIAL IVPUSH SCH (22:12)
[2023-11-11] MEDS: guaiFENesin 600 MG TABLET.ER (FP) PO SCH (14:05)
[2023-11-11 18:35] VITALS: RESP 18
[2023-11-13] MEDS: predniSONE 20 MG TABLET (UD) PO SCH (10:29)
[2023-11-13 10:46] VITALS: BP 129/69; PULSE 70; TEMP 97.9
== END 2023-11-13 13:49 | disposition home or self-care (01) | DRG 189 ==
LOC: JER 00:59 → JERBED 01:24 → OBSVTOIN 01:24 → J5S 06:11
PROVIDERS: ADMIT Internal Medicine; ATTEND Internal Medicine
DX: J96.21 Acute and chronic respiratory failure with hypoxia (principal); J44.1 Chronic obstructive pulmonary disease with (acute) exacerbation; J45.901 Unspecified asthma with (acute) exacerbation; N40.0 Benign prostatic hyperplasia without lower urinary tract symptoms; H40.9 Unspecified glaucoma; E78.5 Hyperlipidemia, unspecified; E61.2 Magnesium deficiency; I73.9 Peripheral vascular disease, unspecified; I10 Essential (primary) hypertension; F41.8 Other specified anxiety disorders; K46.9 Unspecified abdominal hernia without obstruction or gangrene; Z99.81 Dependence on supplemental oxygen
CPT/HCPCS: 0241U-QW; 36415; 71045-TC-FY; 80048; 80053; 80061; 82803; 83036; 83735; 83880; 84443; 84484; 85025; 93005; 93010; 93306-TC; 94010; 94640; 94660; 94761; 99285-25

== ENCOUNTER 2024-01-17 12:16 | Inpatient (IN) | payer OTHER ==
[2024-01-17] MEDS ORDERED: ACETAMINOPHEN INJECTION 100 ML ONE (13:08)
[2024-01-17] MEDS ORDERED: ONDANSETRON 4 MG/2 ML VIAL ONE (13:08)
[2024-01-17 13:28] LABS: URINE APPEARANCE CLOUDY; URINE BILIRUBIN NEGATIVE (NEGATIVE); URINE COLOR YELLOW; URINE GLUCOSE (UA) NEGATIVE (NEGATIVE); URINE KETONE NEGATIVE (NEGATIVE); URINE LEUK ESTERASE NEGATIVE (NEGATIVE); URINE NITRITE NEGATIVE (NEGATIVE); URINE PROTEIN NEGATIVE (NEGATIVE)
[2024-01-17] MEDS: ACETAMINOPHEN 1000 MG/100 ML BAG IVPB ONE (13:28)
[2024-01-17] MEDS: ONDANSETRON 4 MG/2 ML VIAL IVPUSH ONE (13:29)
[2024-01-17 13:31] LABS: HEMATOCRIT 41.7 % (35.4-49); MCH 30.8 pg (25.7-33.7); MCHC 33.7 g/dl (32.0-35.9); MEAN CELL VOLUME 91.5 fl (80-96); MEAN PLT VOLUME 8.3 fl (7.5-11.1); PLATELET COUNT 237 10^3/uL (134-434); RBC 4.56 M/mm3 (4.00-5.60); RDW 14.2 % (11.9-15.9); WHITE BLOOD COUNT 16.1 K/mm3 (4.0-10.0)
[2024-01-17 13:34] LABS: INR 1.15 (0.83-1.09); PROTHROMBIN TIME (PATIENT) 13.2 SEC (9.7-13.0)
[2024-01-17 13:37] LABS: ACTIVATED PTT 29.5 SECONDS (25.2-36.5)
[2024-01-17 13:58] LABS: ANISOCYTOSIS 3+; MACROCYTOSIS 0
[2024-01-17] MEDS ORDERED: KETOROLAC TROMETHAMINE 15 MG/ML VIAL ONE (14:05)
[2024-01-17 14:19] LABS: LACTIC ACID 3.6 mmol/L (0.4-2.0)
[2024-01-17] MEDS: KETOROLAC TROMETHAMINE 15 MG/ML VIAL IVPUSH ONE (14:20)
[2024-01-17] MEDS: DEXTROSE 5%-NORMAL SALINE 1,000 ML IV SCH (14:20)
[2024-01-17] MEDS: LACTATED RINGERS SOLUTION 1000 ML INFUS.BAG IV ONE (14:48)
[2024-01-17 14:55] LABS: BILIRUBIN,TOTAL 1.8 mg/dL (0.2-1)
[2024-01-17 15:18] LABS: POTASSIUM 4.3 mmol/L (3.5-5.1)
[2024-01-17 15:22] LABS: ALBUMIN 3.5 g/dl (3.4-5.0); BLOOD UREA NITROGEN 21.1 mg/dL (7-18); CALCIUM 9.8 mg/dL (8.5-10.1)
[2024-01-17 15:25] LABS: CREATININE 1.1 mg/dL (0.55-1.3)
[2024-01-17 15:27] LABS: TOT PROT 6.3 g/dl (6.4-8.2)
[2024-01-17 16:38] LABS: LACTIC ACID 4.8 mmol/L (0.4-2.0)
[2024-01-17] MEDS: LIDOCAINE HCL 2% JELLY 10 ML CARTRIDGE PO ONE (17:08)
[2024-01-17 20:01] LABS: LACTIC ACID 2.6 mmol/L (0.4-2.0)
[2024-01-17] MEDS ORDERED: ONDANSETRON 4 MG/2 ML VIAL IVPUSH PRN (20:03)
[2024-01-17] MEDS: ACETAMINOPHEN 1000 MG/100 ML BAG IVPB PRN (22:47)
[2024-01-17] MEDS: SODIUM CHLORIDE 500 ML IV STA (23:10)
[2024-01-18] MEDS: ALBUTEROL SO4 2.5/IPRATROPIUM 0.5 INH SOL 3 ML VIAL.NEB. NEB PRN (07:40)
[2024-01-18 09:36] LABS: BASO % 0.1 % (0-2.0); EOS % 0.7 % (0-4.5); HEMOGLOBIN 13.4 GM/dL (11.7-16.9); LYMPH % 5.5 % (8-40); MCH 29.8 pg (25.7-33.7); MEAN CELL VOLUME 93.1 fl (80-96); MEAN PLT VOLUME 8.6 fl (7.5-11.1); MONO % 6.1 % (3.8-10.2); NEUT % 87.6 % (42.8-82.8); PLATELET COUNT 236 10^3/uL (134-434); RBC 4.51 M/mm3 (4.00-5.60); RDW 14.4 % (11.9-15.9); WHITE BLOOD COUNT 12.8 K/mm3 (4.0-10.0)
[2024-01-18] MEDS: TIMOLOL 0.5% OPHTHALMIC SOL 5 ML BOTTLE OU SCH (09:51)
[2024-01-18] MEDS: FLUTICASONE/UMECLIDIN/VILANTER(200-62.5-25 TRELEGY ELLIPTA) INAHLER IH SCH (09:51)
[2024-01-18] MEDS: IOHEXOL (OMNIPAQUE IV) 350 MG/ML - 100 ML BOTTLE GT ONE (09:51)
[2024-01-18] MEDS: DEXTROSE 5%-0.45% SALINE 1,000 ML IV SCH (09:52)
[2024-01-18 14:17] LABS: BILIRUBIN,TOTAL 1.4 mg/dL (0.2-1); BLOOD UREA NITROGEN 15.5 mg/dL (7-18); CALCIUM 8.5 mg/dL (8.5-10.1); CREATININE 0.9 mg/dL (0.55-1.3); POTASSIUM 3.7 mmol/L (3.5-5.1); TOT PROT 5.5 g/dl (6.4-8.2)
[2024-01-18] MEDS: CEFTRIAXONE 1 GM in DEXTROSE 5%-WATER - 50 ML IVPB SCH (17:10)
[2024-01-18] MEDS: MAGNESIUM SULF 50% (8.12 MEQ/2 ML-1 GM VIAL) IVPB ONE (18:22)
[2024-01-19] MEDS: LATANOPROST 0.005% OPHTH SOLN 2.5ML BOTTLE OU SCH (02:56)
[2024-01-19 08:51] LABS: HEMATOCRIT 39.1 % (35.4-49); MCH 30.5 pg (25.7-33.7); MCHC 33.3 g/dl (32.0-35.9); MEAN CELL VOLUME 91.6 fl (80-96); MEAN PLT VOLUME 8.8 fl (7.5-11.1); PLATELET COUNT 205 10^3/uL (134-434); RBC 4.27 M/mm3 (4.00-5.60); RDW 14.3 % (11.9-15.9); WHITE BLOOD COUNT 11.5 K/mm3 (4.0-10.0)
[2024-01-19 09:23] LABS: POTASSIUM 3.3 mmol/L (3.5-5.1)
[2024-01-19 09:34] LABS: CALCIUM 7.8 mg/dL (8.5-10.1)
[2024-01-19 09:35] LABS: ALBUMIN 2.7 g/dl (3.4-5.0); BLOOD UREA NITROGEN 16.8 mg/dL (7-18); MAGNESIUM 2.2 mg/dL (1.8-2.4)
[2024-01-19 09:38] LABS: CREATININE 0.8 mg/dL (0.55-1.3)
[2024-01-19 09:39] LABS: BILIRUBIN,TOTAL 0.8 mg/dL (0.2-1); TOT PROT 5.1 g/dl (6.4-8.2)
[2024-01-19] MEDS: D5-1/2NS+10 MEQ KCL - 10 MEQ/1,000 ML INFUS.BAG IV SCH (10:32)
[2024-01-20 09:55] LABS: BASO % 0.6 % (0-2.0); EOS % 1.6 % (0-4.5); HEMATOCRIT 38.9 % (35.4-49); HEMOGLOBIN 12.4 GM/dL (11.7-16.9); LYMPH % 6.1 % (8-40); MCH 29.9 pg (25.7-33.7); MCHC 31.9 g/dl (32.0-35.9); MEAN CELL VOLUME 93.7 fl (80-96); MEAN PLT VOLUME 8.9 fl (7.5-11.1); MONO % 5.4 % (3.8-10.2); NEUT % 86.3 % (42.8-82.8); PLATELET COUNT 206 10^3/uL (134-434); RBC 4.15 M/mm3 (4.00-5.60); RDW 14.4 % (11.9-15.9); WHITE BLOOD COUNT 12.1 K/mm3 (4.0-10.0)
[2024-01-20 10:19] LABS: POTASSIUM 3.4 mmol/L (3.5-5.1)
[2024-01-20 10:21] LABS: ALBUMIN 2.6 g/dl (3.4-5.0); CALCIUM 7.8 mg/dL (8.5-10.1)
[2024-01-20 10:25] LABS: CREATININE 0.7 mg/dL (0.55-1.3)
[2024-01-20 10:26] LABS: BILIRUBIN,TOTAL 0.7 mg/dL (0.2-1)
[2024-01-20] MEDS: FUROSEMIDE 20 MG TABLET (FP) PO SCH (17:39)
[2024-01-20] MEDS: POTASSIUM CHLORIDE ORAL LIQUID 20 MEQ/15 ML PO ONE (17:39)
[2024-01-20] MEDS: MONTELUKAST NA 10 MG TABLET PO SCH (21:19)
[2024-01-21 09:19] LABS: BASO % 0.7 % (0-2.0); LYMPH % 7.5 % (8-40); MCHC 32.5 g/dl (32.0-35.9); MEAN CELL VOLUME 92.2 fl (80-96); MEAN PLT VOLUME 8.5 fl (7.5-11.1); MONO % 6.7 % (3.8-10.2); NEUT % 83.1 % (42.8-82.8); PLATELET COUNT 225 10^3/uL (134-434); RBC 4.01 M/mm3 (4.00-5.60); RDW 13.9 % (11.9-15.9)
[2024-01-21 09:30] LABS: POTASSIUM 3.8 mmol/L (3.5-5.1)
[2024-01-21 09:32] LABS: CALCIUM 7.8 mg/dL (8.5-10.1)
[2024-01-21 09:33] LABS: ALBUMIN 2.6 g/dl (3.4-5.0); BLOOD UREA NITROGEN 18.1 mg/dL (7-18)
[2024-01-21 09:36] LABS: CREATININE 0.8 mg/dL (0.55-1.3)
[2024-01-21 09:37] LABS: BILIRUBIN,TOTAL 0.8 mg/dL (0.2-1); TOT PROT 5.2 g/dl (6.4-8.2)
[2024-01-21 16:33] LABS: MAGNESIUM 1.8 mg/dL (1.8-2.4)
[2024-01-21] MEDS: ACETAMINOPHEN 325 MG TABLET (FP) PO ONE (22:10)
[2024-01-22] MEDS: ONABOTULINUMTOXINA 200 UNIT/VIAL VIAL IM ONE (10:00)
[2024-01-22] MEDS ORDERED: MIDAZOLAM HCL 2 MG/2 ML SINGLE DOSE VIAL ONE ×2 (14:49→15:20)
[2024-01-22] MEDS: ceFAZolin SODIUM 1 GM VIAL IVPB ONE (15:25)
[2024-01-22] MEDS ORDERED: ceFAZolin SODIUM 1 GM VIAL ONE (15:28)
[2024-01-22] MEDS ORDERED: ONDANSETRON 4 MG/2 ML VIAL IVPUSH PRN (16:31)
[2024-01-22] MEDS ORDERED: ALBUTEROL SO4 2.5/IPRATROPIUM 0.5 INH SOL 3 ML VIAL.NEB. NEB PRN (16:31)
[2024-01-22] MEDS ORDERED: LACTATED RINGERS SOLUTION 1,000 ML IV SCH (16:45)
[2024-01-22] MEDS: D5-1/2NS+10 MEQ KCL - 10 MEQ/1,000 ML INFUS.BAG IV SCH (17:11)
[2024-01-22] MEDS: MONTELUKAST NA 10 MG TABLET PO SCH (21:46)
[2024-01-22] MEDS: TIMOLOL 0.5% OPHTHALMIC SOL 5 ML BOTTLE OU SCH (21:46)
[2024-01-22] MEDS: LATANOPROST 0.005% OPHTH SOLN 2.5ML BOTTLE OU SCH (21:47)
[2024-01-23] MEDS: CEFTRIAXONE 1 GM in DEXTROSE 5%-WATER - 50 ML IVPB SCH (09:27)
[2024-01-23] MEDS: FUROSEMIDE 20 MG TABLET (FP) PO SCH (09:31)
[2024-01-23] MEDS: FLUTICASONE/UMECLIDIN/VILANTER(200-62.5-25 TRELEGY ELLIPTA) INAHLER IH SCH (10:03)
[2024-01-24] MEDS: metroNIDAZOLE 250 MG TABLET PO SCH (05:35)
[2024-01-24 10:43] LABS: BASO % 1.2 % (0-2.0); EOS % 5.3 % (0-4.5); HEMATOCRIT 30.5 % (35.4-49); MCH 30.6 pg (25.7-33.7); MEAN CELL VOLUME 92.7 fl (80-96); MEAN PLT VOLUME 8.7 fl (7.5-11.1); MONO % 6.7 % (3.8-10.2); NEUT % 68.8 % (42.8-82.8); PLATELET COUNT 301 10^3/uL (134-434); RBC 3.29 M/mm3 (4.00-5.60); RDW 14.4 % (11.9-15.9)
[2024-01-24 11:06] LABS: POTASSIUM 3.6 mmol/L (3.5-5.1)
[2024-01-24 11:10] LABS: ALBUMIN 2.8 g/dl (3.4-5.0); CALCIUM 8.2 mg/dL (8.5-10.1)
[2024-01-24 11:14] LABS: CREATININE 0.7 mg/dL (0.55-1.3)
[2024-01-24 11:15] LABS: BILIRUBIN,TOTAL 0.4 mg/dL (0.2-1); TOT PROT 5.3 g/dl (6.4-8.2)
[2024-01-24 15:35] VITALS: BMI 29.5
[2024-01-25 14:03] VITALS: BP 130/54; PULSE 80; RESP 20; TEMP 98
== END 2024-01-25 14:59 | disposition home health service (06) | DRG 394 ==
LOC: JER 12:16 → JERBED 16:59 → J8W 20:31
PROVIDERS: ADMIT Internal Medicine; ATTEND Internal Medicine
PROC: 3E023TZ Introduction of Destructive Agent into Muscle, Percutaneous Approach (ICD-10-PCS; principal; 2024-01-22 12:00)
DX: K43.6 Other and unspecified ventral hernia with obstruction, without gangrene (principal); K56.609 Unspecified intestinal obstruction, unspecified as to partial versus complete obstruction; J45.901 Unspecified asthma with (acute) exacerbation; N17.9 Acute kidney failure, unspecified; I10 Essential (primary) hypertension; J44.9 Chronic obstructive pulmonary disease, unspecified; I73.9 Peripheral vascular disease, unspecified; N40.0 Benign prostatic hyperplasia without lower urinary tract symptoms
CPT/HCPCS: 36415; 71045-TC-FY; 74018-TC-FY; 74019-TC-FY; 74177-TC; 80053; 81003; 82962; 83605; 83690; 83735; 85025; 85027; 85610; 85730; 86850; 86900; 86901; 87086; 93005; 93010; 94760; 97116-GP; 97161-GP; 99291; J0131; Q9967

== ENCOUNTER 2024-02-06 13:35 | Inpatient (IN) | payer OTHER ==
[2024-02-06 14:27] VITALS: BMI 27.4
[2024-02-06] MEDS ORDERED: methylPREDNISolone NA SUCC 125 MG/2 ML VIAL ONE (14:51)
[2024-02-06] MEDS ORDERED: ALBUTEROL SO4 2.5/IPRATROPIUM 0.5 INH SOL 3 ML VIAL.NEB. NEB ONE ×3 (14:51→20:08)
[2024-02-06] MEDS: methylPREDNISolone NA SUCC 125 MG/2 ML VIAL IVPB ONE (15:00)
[2024-02-06] MEDS: ALBUTEROL SO4 2.5/IPRATROPIUM 0.5 INH SOL 3 ML VIAL.NEB. NEB SCH ×2 (15:00→20:06)
[2024-02-06 15:28] LABS: VENOUS BASE EXCESS -0.3 mmol/L (-2-2); VENOUS O2 SATURATION 77.6 % (70-80); VENOUS PCO2 42.1 mmHg (38-52); VENOUS PH 7.388 (7.310-7.410)
[2024-02-06 15:31] LABS: BASO % 0.8 % (0-2.0); EOS % 1.2 % (0-4.5); HEMATOCRIT 34.6 % (35.4-49); HEMOGLOBIN 11.5 GM/dL (11.7-16.9); LYMPH % 8.8 % (8-40); MCH 29.8 pg (25.7-33.7); MCHC 33.1 g/dl (32.0-35.9); MEAN CELL VOLUME 90.1 fl (80-96); MEAN PLT VOLUME 7.6 fl (7.5-11.1); MONO % 2.3 % (3.8-10.2); NEUT % 86.9 % (42.8-82.8); PLATELET COUNT 444 10^3/uL (134-434); RBC 3.84 M/mm3 (4.00-5.60); RDW 13.9 % (11.9-15.9); WHITE BLOOD COUNT 8.9 K/mm3 (4.0-10.0)
[2024-02-06 15:48] LABS: POTASSIUM 4.1 mmol/L (3.5-5.1)
[2024-02-06 15:50] LABS: CALCIUM 9.2 mg/dL (8.5-10.1)
[2024-02-06 15:54] LABS: CREATININE 0.8 mg/dL (0.55-1.3)
[2024-02-06 15:55] LABS: BILIRUBIN,TOTAL 0.5 mg/dL (0.2-1); TOT PROT 6.7 g/dl (6.4-8.2)
[2024-02-06 15:57] LABS: ALBUMIN 3.6 g/dl (3.4-5.0)
[2024-02-06 16:58] LABS: PH,URINE 7.5 (5.0-8.0); URINE APPEARANCE CLEAR; URINE BILIRUBIN NEGATIVE (NEGATIVE); URINE COLOR YELLOW; URINE GLUCOSE (UA) NEGATIVE (NEGATIVE); URINE KETONE NEGATIVE (NEGATIVE); URINE LEUK ESTERASE NEGATIVE (NEGATIVE); URINE NITRITE NEGATIVE (NEGATIVE); URINE PROTEIN NEGATIVE (NEGATIVE); URINE UROBILINOGEN 0.2 mg/dL (0.2-1.0)
[2024-02-07] MEDS ORDERED: POLYETHYLENE GLYCOL (HEALTHYLAX) 3350 17 GM PACKET PO PRN (01:30)
[2024-02-07] MEDS ORDERED: DOCUSATE SODIUM 100 MG CAPSULE (FP) PO PRN (01:30)
[2024-02-07] MEDS ORDERED: AZITHROMYCIN IVPB 500 MG/250 ML BAG IVPB ONE (01:42)
[2024-02-07] MEDS: AZITHROMYCIN IVPB 500 MG in DEXTROSE 5%-WATER - 250 ML IVPB ONE (01:46)
[2024-02-07] MEDS ORDERED: methylPREDNISolone NA SUCC 40 MG/1 ML VIAL ONE (02:23)
[2024-02-07] MEDS ORDERED: guaiFENesin/CODEINE 10 ML UNIT-DOSE CUPS ONE (02:23)
[2024-02-07] MEDS: guaiFENesin 200 MG/10 ML 10 ML UNIT-DOSE CUPS PO PRN (02:27)
[2024-02-07] MEDS: AZITHROMYCIN IVPB 500 MG/250 ML BAG IVPB ONE (02:29)
[2024-02-07] MEDS: methylPREDNISolone NA SUCC 40 MG/1 ML VIAL IVPUSH SCH (02:30)
[2024-02-07] MEDS ORDERED: FLUTICASONE/UMECLIDIN/VILANTER(200-62.5-25 TRELEGY ELLIPTA) INAHLER IH SCH (10:00)
[2024-02-07] MEDS: LISINOPRIL 10 MG TABLET PO SCH (10:34)
[2024-02-07] MEDS: amLODIPine BESYLATE 10 MG TABLET (FP) PO SCH (10:34)
[2024-02-07] MEDS: TAMSULOSIN HCL 0.4 MG CAP PO SCH (10:34)
[2024-02-07] MEDS: FUROSEMIDE 20 MG TABLET (FP) PO SCH (10:34)
[2024-02-07 10:35] LABS: HEMOGLOBIN 11.3 GM/dL (11.7-16.9); MCH 30.4 pg (25.7-33.7); MCHC 34.3 g/dl (32.0-35.9); MEAN CELL VOLUME 88.6 fl (80-96); MEAN PLT VOLUME 8.2 fl (7.5-11.1); PLATELET COUNT 410 10^3/uL (134-434); RBC 3.73 M/mm3 (4.00-5.60); RDW 13.6 % (11.9-15.9); WHITE BLOOD COUNT 9.4 K/mm3 (4.0-10.0)
[2024-02-07] MEDS: PANTOPRAZOLE 20 MG TABLET PO SCH (10:35)
[2024-02-07] MEDS: ASPIRIN 81 MG CHEWABLE TABLETS PO SCH (10:35)
[2024-02-07] MEDS: FINASTERIDE 5 MG TABLET (FP) PO SCH (10:35)
[2024-02-07 11:05] LABS: ANISOCYTOSIS 0; HELMET CELLS 0; HOWELL-JOLLY BODIES 0; MACROCYTOSIS 0; OVALOCYTE 0; ROULEAU 0; SICKELED CELLS 0; TARGET CELLS 0; TEAR DROP CELLS 0; TOXIC GRANULATION 0
[2024-02-07 11:32] LABS: POTASSIUM 4.5 mmol/L (3.5-5.1)
[2024-02-07 11:33] LABS: CALCIUM 8.7 mg/dL (8.5-10.1)
[2024-02-07 11:34] LABS: BLOOD UREA NITROGEN 24.3 mg/dL (7-18)
[2024-02-07 11:37] LABS: CREATININE 1.2 mg/dL (0.55-1.3)
[2024-02-07] MEDS: FLUTICASONE PROP 0.05% 16 GM NASAL SPRAY NS SCH (12:12)
[2024-02-07] MEDS: TIMOLOL 0.5% OPHTHALMIC SOL 5 ML BOTTLE OU SCH (12:13)
[2024-02-07] MEDS: ARTIFICIAL TEARS OPHTHALMIC DROPS OU SCH (12:14)
[2024-02-07] MEDS: MONTELUKAST NA 10 MG TABLET PO SCH (21:39)
[2024-02-07] MEDS: ATORVASTATIN CA 20 MG TABLET (FP) PO SCH (21:39)
[2024-02-07] MEDS: LATANOPROST 0.005% OPHTH SOLN 2.5ML BOTTLE OU SCH (22:56)
[2024-02-08 10:26] VITALS: RESP 18
[2024-02-08] MEDS: AZITHROMYCIN IVPB 500 MG/250 ML BAG IVPB SCH (10:40)
[2024-02-09] MEDS: AZITHROMYCIN 250 MG TABLET PO ONE (11:02)
[2024-02-09] MEDS: ALBUTEROL SO4 2.5/IPRATROPIUM 0.5 INH SOL 3 ML VIAL.NEB. NEB PRN (14:24)
[2024-02-09] MEDS: methylPREDNISolone NA SUCC 40 MG/1 ML VIAL IVPUSH SCH (18:21)
[2024-02-11] MEDS: predniSONE 20 MG TABLET (UD) PO SCH (10:52)
[2024-02-11] MEDS: FLUTICASONE/UMECLIDIN/VILANTER(200-62.5-25 TRELEGY ELLIPTA) INAHLER IH SCH (11:21)
[2024-02-11] MEDS: ALBUTEROL SO4 2.5/IPRATROPIUM 0.5 INH SOL 3 ML VIAL.NEB. NEB SCH (12:00)
[2024-02-11] MEDS: BUDESONIDE/FORMETEROL FUMARATE 160/4.5 mcg INHALER IH SCH (19:18)
[2024-02-12 10:55] VITALS: TEMP 97.7
[2024-02-12 15:14] VITALS: BP 117/57
[2024-02-12 15:19] VITALS: PULSE 125
== END 2024-02-12 16:48 | disposition home or self-care (01) | DRG 191 ==
LOC: JER 13:35 → JERBED 16:41 → J5S 02-07 05:54 → OBSVTOIN 02-07 11:22
PROVIDERS: ADMIT Internal Medicine; ATTEND Internal Medicine
DX: J44.1 Chronic obstructive pulmonary disease with (acute) exacerbation (principal); J45.901 Unspecified asthma with (acute) exacerbation; N40.0 Benign prostatic hyperplasia without lower urinary tract symptoms; K43.9 Ventral hernia without obstruction or gangrene; I10 Essential (primary) hypertension; H40.9 Unspecified glaucoma; I73.9 Peripheral vascular disease, unspecified
CPT/HCPCS: 36415; 71045-TC-FY; 80048; 80053; 81003; 82803; 85025; 87086; 87186; 93005; 93010; 94640; 94761; 99285-25; G0378

== ENCOUNTER 2024-10-13 19:56 | Inpatient (IN) | payer OTHER ==
[2024-10-13] MEDS ORDERED: ONDANSETRON 4 MG/2 ML VIAL ONE (20:36)
[2024-10-13] MEDS ORDERED: FAMOTIDINE 20 MG/50 ML IVPB 20 MG/50 ML MG IVPB ONE (20:36)
[2024-10-13] MEDS ORDERED: ACETAMINOPHEN INJECTION 100 ML ONE (20:36)
[2024-10-13] MEDS: LACTATED RINGERS SOLUTION 1000 ML INFUS.BAG IV ONE (21:16)
[2024-10-13] MEDS: ACETAMINOPHEN 1000 MG/100 ML BAG IVPB ONE (21:17)
[2024-10-13] MEDS: ONDANSETRON 4 MG/2 ML VIAL IVPB ONE (21:17)
[2024-10-13] MEDS: FAMOTIDINE 20 MG/50 ML IVPB 20 MG/50 ML MG IVPB ONE (21:17)
[2024-10-13 21:18] LABS: ABSOLUTE IMMATURE GRANULOCYTES 0.06 x10^3/uL (0.0-0.031); BASOPHILS # 0.03 x10^3/uL (0.01-0.08); EOSINOPHIL % 0.0 % (0.8-7.0); EOSINOPHILS # 0.00 x10^3/uL (0.04-0.54); MCHC 31.6 g/dl (32.3-36.5); MEAN CELL VOLUME 90.3 fl (79.0-92.2); MEAN PLT VOLUME 10.3 fl (9.4-12.4); MONOCYTE # 0.74 x10^3/uL (0.30-0.82); MONOCYTE % 5.8 % (5.3-12.2); RDW 14.4 % (12.2-16.6)
[2024-10-13 22:12] LABS: ALK PHOS 106.0 U/L (45-117); CO2 26.0 mmol/L (21-32); CREATININE 1.2 mg/dL (0.55-1.3); GLUCOSE,RANDOM 144.0 mg/dL (74-106); SGOT/AST 24.0 U/L (15-37); SGPT/ALT 38.0 U/L (13-61); TOT PROT 7.0 g/dl (6.4-8.2)
[2024-10-13 22:45] LABS: LACTIC ACID 3.6 mmol/L (0.4-2.0)
[2024-10-14 00:21] LABS: HCV DIAGNOSTIC IN-HOUSE W/RFLX NON-REACTIVE (NONREACTIVE)
[2024-10-14 00:24] LABS: HIV INTERPRETATION NEGATIVE (NEGATIVE)
[2024-10-14 00:33] LABS: LACTIC ACID 2.8 mmol/L (0.4-2.0)
[2024-10-14] MEDS: LACTATED RINGERS SOLUTION 1,000 ML/1,000 ML INFUS.BAG IV SCH ×2 (01:21→04:45)
[2024-10-14 03:19] VITALS: BMI 32.1
[2024-10-14] MEDS: ACETAMINOPHEN 1000 MG/100 ML BAG IVPB PRN (04:46)
[2024-10-14] MEDS: ONDANSETRON 4 MG/2 ML VIAL IVPUSH PRN (04:46)
[2024-10-14 08:02] LABS: ABSOLUTE IMMATURE GRANULOCYTES 0.01 x10^3/uL (0.0-0.031); BASOPHILS # 0.02 x10^3/uL (0.01-0.08); EOSINOPHIL % 0.6 % (0.8-7.0); EOSINOPHILS # 0.04 x10^3/uL (0.04-0.54); MCHC 31.6 g/dl (32.3-36.5); MEAN CELL VOLUME 90.4 fl (79.0-92.2); MEAN PLT VOLUME 10.7 fl (9.4-12.4); MONOCYTE # 0.70 x10^3/uL (0.30-0.82); MONOCYTE % 9.9 % (5.3-12.2); RDW 14.5 % (12.2-16.6)
[2024-10-14 08:28] LABS: CO2 25.0 mmol/L (21-32); GLUCOSE,RANDOM 141.0 mg/dL (74-106)
[2024-10-14 08:31] LABS: CREATININE 1.1 mg/dL (0.55-1.3)
[2024-10-14 08:45] LABS: INR 1.27 (0.83-1.09); PROTHROMBIN TIME (PATIENT) 13.8 SEC (9.7-13.0)
[2024-10-14] MEDS: FUROSEMIDE 40 MG/4 ML INJECTABLE VIAL IVPUSH SCH (12:01)
[2024-10-14] MEDS: LISINOPRIL 10 MG TABLET NGT SCH (21:44)
[2024-10-15 07:10] LABS: MCHC 31.2 g/dl (32.3-36.5); MEAN CELL VOLUME 91.8 fl (79.0-92.2); MEAN PLT VOLUME 10.6 fl (9.4-12.4); RDW 14.3 % (12.2-16.6)
[2024-10-15 07:43] LABS: GLUCOSE,RANDOM 91.0 mg/dL (74-106)
[2024-10-15 07:46] LABS: SGOT/AST 29.0 U/L (15-37); SGPT/ALT 29.0 U/L (13-61)
[2024-10-15 07:47] LABS: CO2 29.0 mmol/L (21-32)
[2024-10-15 07:48] LABS: CREATININE 1.0 mg/dL (0.55-1.3)
[2024-10-15 07:50] LABS: ALK PHOS 85.0 U/L (45-117); TOT PROT 6.2 g/dl (6.4-8.2)
[2024-10-15] MEDS: PANTOPRAZOLE SODIUM 40 MG VIAL IVPUSH SCH (11:20)
[2024-10-16 07:38] LABS: ABSOLUTE IMMATURE GRANULOCYTES 0.02 x10^3/uL (0.0-0.031); BASOPHILS # 0.03 x10^3/uL (0.01-0.08); EOSINOPHIL % 1.7 % (0.8-7.0); EOSINOPHILS # 0.12 x10^3/uL (0.04-0.54); MCHC 31.2 g/dl (32.3-36.5); MEAN CELL VOLUME 92.3 fl (79.0-92.2); MEAN PLT VOLUME 10.7 fl (9.4-12.4); MONOCYTE # 0.79 x10^3/uL (0.30-0.82); MONOCYTE % 11.3 % (5.3-12.2); RDW 14.3 % (12.2-16.6)
[2024-10-16 14:31] LABS: CO2 26.0 mmol/L (21-32); GLUCOSE,RANDOM 95.0 mg/dL (74-106)
[2024-10-16 14:34] LABS: CREATININE 1.1 mg/dL (0.55-1.3); SGOT/AST 54.0 U/L (15-37); SGPT/ALT 32.0 U/L (13-61)
[2024-10-16 14:35] LABS: TOT PROT 5.6 g/dl (6.4-8.2)
[2024-10-16 14:36] LABS: ALK PHOS 76.0 U/L (45-117)
[2024-10-16] MEDS: KCL 10 MEQ IVPB 10 MEQ/100 ML INFUS.BAG IVPB SCH (16:38)
[2024-10-16] MEDS: POTASSIUM CHLORIDE ORAL LIQUID 20 MEQ/15 ML PO ONE (16:38)
[2024-10-17 07:43] LABS: CO2 28.0 mmol/L (21-32); GLUCOSE,RANDOM 104.0 mg/dL (74-106)
[2024-10-17 07:46] LABS: CREATININE 1.2 mg/dL (0.55-1.3); SGOT/AST 85.0 U/L (15-37); SGPT/ALT 43.0 U/L (13-61)
[2024-10-17 07:47] LABS: TOT PROT 5.9 g/dl (6.4-8.2)
[2024-10-17 07:48] LABS: ALK PHOS 77.0 U/L (45-117)
[2024-10-17] MEDS: POTASSIUM CHLORIDE ORAL LIQUID 20 MEQ/15 ML PO ONE (20:08)
[2024-10-18 09:23] LABS: CO2 29.0 mmol/L (21-32); CREATININE 1.1 mg/dL (0.55-1.3); GLUCOSE,RANDOM 111.0 mg/dL (74-106); SGPT/ALT 44.0 U/L (13-61)
[2024-10-18 09:25] LABS: TOT PROT 5.6 g/dl (6.4-8.2)
[2024-10-18 09:26] LABS: ALK PHOS 73.0 U/L (45-117); SGOT/AST 59.0 U/L (15-37)
[2024-10-18 09:40] VITALS: BP 120/50; PULSE 75; RESP 16; TEMP 98.1
== END 2024-10-18 14:00 | disposition home or self-care (01) | DRG 390 ==
LOC: JER 19:56 → JERBED 10-14 00:10 → J7W 10-14 03:08 → OBSVTOIN 10-14 10:15 → J7W 10-16 02:41
PROVIDERS: ADMIT Internal Medicine; ATTEND Internal Medicine
PROC: 0D9670Z Drainage of Stomach with Drainage Device, Via Natural or Artificial Opening (ICD-10-PCS; principal; 2024-10-13)
DX: K56.609 Unspecified intestinal obstruction, unspecified as to partial versus complete obstruction (principal); K43.9 Ventral hernia without obstruction or gangrene; R11.2 Nausea with vomiting, unspecified; I10 Essential (primary) hypertension; J44.9 Chronic obstructive pulmonary disease, unspecified; J45.909 Unspecified asthma, uncomplicated; N40.0 Benign prostatic hyperplasia without lower urinary tract symptoms; E78.5 Hyperlipidemia, unspecified
CPT/HCPCS: 36415; 71045-TC-FY; 74019-TC-FY; 74177-TC; 80048; 80053; 83605; 83690; 85025; 85610; 86803; 87389; 93005; 93010; 97116-GP; 97161-GP; 99285-25; G0378